=== PATIENT | female | born 1950 | race Caucasian/White ===

== ENCOUNTER 2017-10-23 12:36 | Inpatient (IN) | END 2017-10-29 14:19 | DRG 246 ==

== ENCOUNTER 2018-12-22 06:21 | Inpatient (IN) | payer MEDICAID, MEDICARE ==
[~2018-12-22] VITALS: Ht 160 cm; Wt 74.2 kg
[~2018-12-22 06:21] MED LIST: ACET-2047 PO; ASPI-903 PO; BISA10SU75 PR; CHOL100062 PO; DOCU-159 PO; FELO10TA PO; GENT5DRO28 BOTH EYES; HYDR-4011 PO; INSU100V3 IJ; LACTINEX PO; LORA10TA3 PO; LYRI25 PO; MULTI PO; PANT40TA4 PO; TETR15DR63 LEFT EYE
[2018-12-22] MEDS ORDERED: SOD CHLORIDE 0.9% 100 ML ONE (06:39)
[2018-12-22] MEDS ORDERED: IOHEXOL 300MG/ML 150 ML BTL ONE (06:39)
[2018-12-22] MEDS ORDERED: ACETAMINOPHEN 325 MG TAB PO PRN (07:00)
[2018-12-22] MEDS ORDERED: ASPIRIN 325 MG TAB PO ONE (07:00)
[2018-12-22] MEDS ORDERED: ONDANSETRON 4 MG INJ IV PRN (07:00)
[2018-12-22] MEDS ORDERED: CEFTRIAXONE 1 GM/50 ML (PMX) 50 ML IVPB STA (07:11)
[2018-12-22] MEDS ORDERED: ACETAMINOPHEN 650 MG SUPP PR ONE (07:30)
[2018-12-22] MEDS ORDERED: ASPIRIN 300 MG SUPP PR ONE (07:30)
--- NOTE | 2018-12-22 08:25 | ERD ---
ER Documentation Chief Complaint Chief Complaint LKWT 2129 YESTERDAY. NEW ONSET DEVIATED TONGUE AND SLURRED SPEECH HPI Patient is a 68-year-old female with coronary disease, stroke, hypertension, and diabetes who presents with a deviated tongue and slurred speech. Please note the history and physical exam is limited secondary to the patient's mental status. The patient was brought in by ambulance. The patient's last known well time was at 0. The patient has slurred speech and left-sided tongue deviation. The patient was on aspirin but no other blood thinners. Review of the documentation from the custodial facility shows the patient is a DNR with documentation that says "comfort focused treatment only". Upon review of old medical records the patient one previous visit in October 2017 and was admitted to Dr. Frankel. ROS All systems reviewed and are negative except as per history of present illness. Medications Home Meds Reported Medications Insulin Regular, Human (Humulin R) 100 Unit/1 Ml Vial, 0-15 UNIT IJ AC MEALS, VIAL 10/23/17 Tetrahydrozoline Hcl* (Visine*) 0.05% - 15 Ml Drops, 2 DROP LEFT EYE BID PRN for RED EYES, #1 EA 10/23/17 Pregabalin* (Lyrica*) 25 Mg Capsule, 25 MG PO BID, CAP 10/23/17 Pantoprazole* (Pantoprazole*) 40 Mg Tablet.dr, 40 MG PO AC BREAKFAST, TAB 10/23/17 Multivitamins* (Theragran*) 1 Tab Tab, 1 TAB PO DAILY, TAB 10/23/17 Loratadine* (Loratadine*) 10 Mg Tablet, 10 MG PO DAILY, #30 TAB 10/23/17 Lactobacillus Acidophilus* (Lactinex*) 1 Tab Chew, 2 TAB PO BID, TAB 10/23/17 Hydrocodone/Acetaminophen (Stitzer 5-325 Tablet) 1 Each Tablet, 1 EACH PO Q6 PRN for SEVERE PAIN LEVEL 7-10, TAB 10/23/17 Gentamicin Sulfate* (Gentamicin Sulfate* Ophth) 0.3% - 5 Ml Drops, 1 DROP BOTH EYES Q4, EA 10/23/17 Felodipine* (Felodipine*) 10 Mg Tab.sr.24h, 10 MG PO DAILY, TAB.SA 10/23/17 Docusate Sodium* (Docusate Sodium*) 100 Mg Capsule, 100 MG PO QHS, #30 CAP 10/23/17 Cholecalciferol* (Vitamin D3*) 1,000 Unit Tablet, 1000 UNIT PO DAILY, TAB 10/23/17 Bisacodyl* (Bisacodyl*) 10 Mg Supp, 10 MG MT Q24H PRN for CONSTIPATION, SUPP 10/23/17 Aspirin* (Aspirin* Chew) 81 Mg Tab.chew, 81 MG PO DAILY, TAB.CHEW 10/23/17 Acetaminophen* (Acetaminophen*) 650 Mg Tablet, 650 MG PO Q6H PRN for PAIN AND OR ELEVATED TEMP, #30 TAB 10/23/17 Allergies Allergies: Coded Allergies: tetracycline (Verified Allergy, Mild, 10/23/17) PMhx/Soc History of Surgery: No Anesthesia Reaction: No Hx Neurological Disorder: Yes (Multiple CVA's) Hx Respiratory Disorders: No Hx Cardiac Disorders: Yes (HTN, HYPERLIPIDEMIA) Hx Psychiatric Problems: No Hx Miscellaneous Medical Probl: Yes (DM, OSTEOPOROSIS, GERD, ANEMIA, PRESSURE ULCER) Hx Alcohol Use: No Hx Substance Use: No Hx Tobacco Use: No Smoking Status: Never smoker FmHx Unable to obtain Physical Exam Vitals Vital Signs Date Temp Pulse Resp B/P (MAP) Pulse Ox O2 O2 Flow FiO2 Time Delivery Rate 12/22/18 101.2 07:34 12/22/18 Nasal 2 07:04 Cannula 12/22/18 101.2 88 18 156/71 97 07:01 (99) Physical Exam Const: No acute distress Head: Atraumatic Eyes: Normal Conjunctiva ENT: Normal External Ears, Nose and Mouth. Neck: Full range of motion. No meningismus. Resp: Clear to auscultation bilaterally Cardio: Regular rate and rhythm, no murmurs Abd: Soft, non tender, non distended. Normal bowel sounds Skin: No petechiae or rashes Back: No midline or flank tenderness Ext: No cyanosis, or edema Neur: Awake, left-sided tongue deviation, slurred speech, dense left-sided weakness from previous stroke Result Diagram: 12/22/18 0645 12/22/18 0646 Results 24 hrs Laboratory Tests Test 12/22/18 06:45 12/22/18 06:46 12/22/18 07:48 12/22/18 08:19 White Blood 10.0 10^3/ul Count Red Blood Count 3.19 10^6/ul Hemoglobin 10.0 g/dl Hematocrit 29.5 % Mean Corpuscular 92.5 fl Volume Mean Corpuscular 31.3 pg Hemoglobin Mean Corpuscular 33.9 g/dl Hemoglobin Zoraida nt Red Cell 11.4 % Distribution Width Platelet Count 262 10^3/UL Mean Platelet 8.7 fl Volume Immature 0.500 % Granulocytes % Neutrophils % 92.0 % Lymphocytes % 3.5 % Monocytes % 2.7 % Eosinophils % 1.1 % Basophils % 0.2 % Nucleated Red 0.0 /100WBC Blood Cells % Immature 0.050 10^3/ul Granulocytes # Neutrophils # 9.2 10^3/ul Lymphocytes # 0.4 10^3/ul Monocytes # 0.3 10^3/ul Eosinophils # 0.1 10^3/ul Basophils # 0.0 10^3/ul Nucleated Red 0.0 10^3/ul Blood Cells # Prothrombin Time 13.0 Sec Prothrombin Time 1.0 Ratio INR 0.97 International Normalized Ratio Activated 29.7 Sec Partial Thrombop last Time Sodium Level 135 mmol/L Potassium Level 4.8 mmol/L Chloride Level 101 mmol/L Carbon Dioxide 22 mmol/L Level Anion Gap 12 Blood Urea 53 mg/dl Nitrogen Creatinine 1.99 mg/dl Est Glomerular 25 mL/min Filtrat Rate mL/min Glucose Level 336 mg/dl Hemoglobin A1c 8.9 % Calcium Level 9.5 mg/dl Creatine Kinase < 20 IU/L Creatine Kinase Index Creatinine 0.35 ng/ml Kinase MB (Mass) Troponin I < 0.012 ng/ml Triglycerides 201 mg/dl Level Cholesterol 125 mg/dl Level LDL Cholesterol, 57 mg/dl Calculated HDL Cholesterol 28 mg/dl Cholesterol/HDL 4.4 RATIO Ratio Ethyl Alcohol < 10.0 mg/dl Level Urine Color YELLOW Urine Clarity TURBID Urine pH 5.0 Urine Specific 1.030 [place] Urine Ketones NEGATIVE mg/dL Urine Nitrite NEGATIVE mg/dL Urine Bilirubin NEGATIVE mg/dL Urine NEGATIVE mg/dL Urobilinogen Urine Leukocyte 3+ Viral/ul Esterase Urine 66 /HPF Microscopic RBC Urine > 182 /HPF Microscopic WBC Urine Squamous FEW /HPF Epithelial Cells Urine Bacteria MANY /HPF Urine Hyaline FEW /HPF Casts Urine Mucus MANY /HPF Urine Yeast FEW /HPF (Budding) Urine Hemoglobin 3+ mg/dL Urine Glucose 2+ mg/dL Urine Total 2+ mg/dl Protein POC Venous 2.4 mmol/L Lactate Current Medications Medications Dose Sig/Omari Start Time Status Last (Trade) Ordered Route PRN Stop Time Admin Dose Reason Admin Sodium 100 ml @ ud STK-MED 12/22/18 DC 12/22/18 Chloride ONCE .ROUTE 06:39 06:40 12/22/18 06:40 Iohexol 150 ml STK-MED 12/22/18 DC 12/22/18 (Omnipaque ONCE .ROUTE 06:39 06:40 300mg/ ml) 12/22/18 06:40 Aspirin 325 mg ONCE ONCE 12/22/18 DC (Aspirin) PO 07:00 12/22/18 07:11 Ondansetron 4 mg ER BRIDGE 12/22/18 12/22/18 HCl (Zofran PRN IV 07:00 07:34 Inj) NAUSEA/VOMITI 12/23/18 06:59 NG 650 mg ER BRIDGE 12/22/18 Acetaminophen PRN PO 07:00 (Tylenol .MILD PAIN 12/23/18 06:59 Tab) 1-3 OR TEMP 650 mg ONCE ONCE 12/22/18 DC 12/22/18 Acetaminophen MT 07:30 07:34 (Tylenol 12/22/18 07:31 Supp) Aspirin 300 mg ONCE ONCE 12/22/18 DC 12/22/18 (Aspirin) MT 07:30 07:34 12/22/18 07:31 Ceftriaxone 50 ml @ ONCE STAT 12/22/18 DC 12/22/18 Sodium 100 mls/hr IVPB 07:11 07:34 12/22/18 07:40 Procedures/MDM EKG read by me: Rate/Rhythm: Regular rate and rhythm at a normal rate Intervals: Normal Impression: No evidence of ischemia or arrhythmia CT brain negative per radiology for bleed. CTA of the head and neck read by radiology. Chest x-ray read by radiology. Sepsis Documentation: Patient's infectious symptoms have not stabilized and the patient is at risk of rapid decompensation. The patient will be admitted for careful hydration, antibiotic therapy, and infectious source control. SEVERE SEPSIS CRITERIA: Infectious source: Cystitis End organ damage indicated by: Lactic acid greater than 2 SEPSIS MANAGEMENT Time of recognition of sepsis: 8:19 AM. Time of recognition of severe sepsis: 8:19 AM. Time of recognition of septic shock: No septic shock at this time. 3 HOUR BUNDLE Blood cultures x 2 before broad-spectrum antibiotics: Yes 30 ml/kg NS bolus completed Initial lactate 2.4 Repeat lactate pending SEPTIC SHOCK ASSESSMENT: No lactic acid > 4.0 No persistent hypotension (SBP < 90 or 40 mmHg drop, MAP < 65) despite 30 mL/kg IV fluid bolus VOLUME REASSESSMENT FOR SEPTIC SHOCK: No septic shock PERSISTENT HYPOTENSION TREATMENT: Comfort care no Central line not Required Vasopressor started not required I considered further perfusion assessment with CVP measurement, SCVO2, bedside ultrasound volume assessment, passive leg raise, trial of further fluid bolus. And proceeded with 30 ml/kg fluid bolus of NSS, broad spectrum antibiotics, and admission. The patient initially arrived at 6:19 AM. She went directly CT for the stroke symptoms. A code stroke was called at 6:20 AM. At 6:24 AM total neurology was called. At 6:38 AM I received a call from radiology with the results of the CT brain. I also spoke with Dr. Stewart from neurology at 6:38 AM. The patient is not a candidate for IV TPA as the symptoms started more than 4- 1/2 hours ago. The patient is also not a candidate for interventional procedure based on her wishes of comfort care only. CRITICAL CARE Critical care time 35 minutes Emergent fluid management while maintaining close respiratory support. Provision of immediate and broad-spectrum antibiotic therapy. Simultaneous assessment for possible sources in order to direct targeted therapy. Consideration for invasive and chemical support to prevent cardiopulmonary collapse. Critical care time is independent of procedures performed. Departure Diagnosis: Primary Impression: Severe sepsis Additional Impressions: Acute weakness Cystitis Stroke CVA mechanism: unspecified Qualified Codes: I63.9 - Cerebral infarction, unspecified Condition: Serious DALIA HICKS MD Dec 22, 2018 08:25
[2018-12-22] MEDS ORDERED: ACET1TAB40 PO (08:51)
[2018-12-22] MEDS ORDERED: METO-429 PO (08:53)
[2018-12-22] MEDS ORDERED: ISOS30TA20 PO (08:54)
[2018-12-22] MEDS ORDERED: INSU100I27 SQ ×2 (08:55→08:56)
[2018-12-22] MEDS ORDERED: IBUP-1561 PO (08:56)
[2018-12-22] MEDS ORDERED: DOCU-144 PO (08:57)
[2018-12-22] MEDS ORDERED: ASPI81TA52 PO (08:57)
[2018-12-22] MEDS ORDERED: ATOR-2 PO (08:57)
--- NOTE | 2018-12-22 08:57 | STROKE ---
Date/Time of Note Date/Time of Note DATE: 12/22/18 TIME: 10:49 Patient Information General Patient location: emergency Arrival Date Onset Date: Dec 21, 2018 Onset Time: 21:30 Onset Type unsure Age 68 Gender female Weight 70 kg Vital Signs Vital Signs Vital Signs Date Temp Pulse Resp B/P (MAP) Pulse Ox O2 O2 Flow FiO2 Time Delivery Rate 12/22/18 101.2 07:34 12/22/18 Nasal 2 07:04 Cannula 12/22/18 88 18 156/71 97 07:01 (99) Patient History Current Medications Allergies: Coded Allergies: tetracycline (Verified Allergy, Mild, 12/22/18) Labs Coagulation Labs: Coagulation Test 12/22/18 06:45 Activated Partial Thromboplast Time 29.7 Sec (23.0-35.0) Coagulation Lab Notes: 68 y/o F PMH remote stroke with residual L hemiparesis. Noted to have new left tongue deviation last night at 9 PM. Pt denies having had any difficulty with swallowing, vision, or hearing. Denies associated headache, neck pain or dizziness. Has chronic pain for which she receives pain patch. Pt states she felt dehydrated and her mouth was dry. She states her speech is now back to normal baseline History & Physical Review of Systems Constitutional: no symptoms reported EENTM: no symptoms reported Respiratory: no symptoms reported Cardiovascular: no symptoms reported Gastrointestinal: no symptoms reported Psychiatric/Neurological: other (tongue deviation, felt dry) NIH Stroke Scale NIH Stroke Scale Xzukn9Is l4d LOC Questions: Ojsoa9e C Commands: Mmdfa6k t Gaze: Naljs6r Kwthy5f alsy: Vwajo6z rm - Left: Vonwl6c Motor Arm - Right: Xkysw7e eft: Xnrnv6z otor Leg - Right: Ecsmu7x Fpcci3g st Language: Htflb3y vanj9Yn Dysarthria: Gsugc8v Lfrao2q 4Bd Total Score: Ecpyy8j te/Time Recorded DATE: 12/22/18 TIME: 10:49 Submitted By Renuka Ramirez t-PA Imaging Review Imaging Reviewed: Yes Date/Time Imaging Reviewed DATE: 12/22/18 TIME: 10:49 Imaging Findings chronic large R MCA infarct, indeterminate age R hemipontine infarct t-PA Administration Recommendation: No Weight 70 kg Recommedation submitted by Renuka Ramirez Reason t-PA not Recommended presentation outside therapeutic window; resolution of symptoms and pt now at previous baseline Recommendations Impression [id number] Site: [address] Other Recommendation Psgyu2Ql Therapy: Uvcli0m Physical Therapy Speech Therapy [id number] [facility] [place]. Recommendations: Oxqia6w Bedside Swallow Evaluation (Admit for further evaluation including TIA workup. Permissive HTN, Keep SBP <220 and DBP<110, avoid hypotension. Evaluate and treat other possible etiologies. IVFNSS. Cardiac telemetry. D/w Dr. Dyer) RENUKA RAMIREZ MD Dec 22, 2018 08:57
[2018-12-22] MEDS ORDERED: AMLO5TAB4 PO (08:58)
[2018-12-22] MEDS ORDERED: PANT40TA3 PO (09:16)
[2018-12-22] MEDS ORDERED: MULT-542 PO (09:16)
[2018-12-22] MEDS ORDERED: POLY17PO6 PO (09:16)
[2018-12-22] MEDS ORDERED: ACET-2047 PO (09:17)
[2018-12-22] MEDS ORDERED: CHOL100062 PO (09:18)
[2018-12-22] MEDS ORDERED: INSU100I12 SQ (09:21)
[2018-12-22 09:43] VITALS: BP 122/60; PULSE 79; RESP 18
[2018-12-22] MEDS ORDERED: ACETAMINOPHEN/CODEINE #3 TAB PO PRN (10:00)
[2018-12-22] MEDS ORDERED: DOCUSATE SODIUM 100 MG CAP PO PRN (10:00)
[2018-12-22 10:05] VITALS: Ht 160 cm; Wt 74.2 kg
[2018-12-22] MEDS ORDERED: HYDROCODONE/APAP (5/325) TAB PO PRN (10:30)
[2018-12-22] MEDS: SOD CHLORIDE 0.9% 1,000 ML IV SCH (10:42)
--- NOTE | 2018-12-22 11:13 | HP ---
DATE OF ADMISSION: 12/22/2018 CHIEF COMPLAINT: The patient chief complaint is possible CVA, sepsis. HISTORY OF PRESENT ILLNESS: This is a 68-year-old female with a past medical history cardiovascular accident with left-sided hemiplegia, history of hypertension, history of GERD, history of diabetes, d iabetic neuropathy, history of coronary artery disease, who presents to [facility] Emergency Room from [facility] nurse facility after the patient was noted to have deviated tongue, lethargy and d ysarthria. The patient upon arrival to the Emergency Room initially had a CT scan of the brain which showed evidence of old lacunar infarct in right large middle cerebral artery distribution involving the right frontoparietal temporal lobe. The patient had no evidence of acute intracranial hemorrhage or infarct. CT angio was also performed which showed evidence of critical 95% right internal caroti d artery stenosis, no hemodynamically significant stenosis of left extracranial or intracranial carot id arteries and chronic right middle cerebral artery infarct. The patient in the Emergency Room also noted to be febrile, temperature 100.1, was started on antibiotic therapy and patient also given asp irin at tele neurology evaluation and determined not eligible for thrombolytics. Upon my evaluation of the patient at this time, she is currently stable. Alert and oriented. The patient describing some generalized left and right arm pain. Denies any hem optysis, hematemesis or hematochezia. PAST MEDICAL HISTORY: As stated above, history of chronic right CVA with left-sided hemiparesis, his tory of diabetes, history of diabetic neuropathy, history of anemia, history of metabolic disorder, h istory of hypertension, history of CKD. PAST SURGICAL HISTORY: Has been reviewed. FAMILY HISTORY: No family history of kidney disease or heart disease. SOCIAL HISTORY: Does not drink, smoke or do drugs. ALLERGIES: Have been reviewed. ALLERGIC TO TETRACYCLINE. MEDICATIONS: The patient's medications have been reviewed and reconciled. REVIEW OF SYSTEMS: A 14-point review of systems conducted, pertinent positives stated in HPI, otherw ise negative. PHYSICAL EXAMINATION: VITAL SIGNS: Blood pressure 122/60, respiration 18, pulse 79, temperature 99.1. HEENT: Normocephalic. HEART: Regular rate. LUNGS: Show diminished breath sounds at base. ABDOMEN: Soft, nontender to palpation without rebound or guarding. EXTREMITIES: Negative for clubbing, cyanosis, no edema. DERMATOLOGIC: No rashes. MUSCULOSKELETAL: Patient has left-sided virgen-deficit. MUSCULOSKELETAL: No joint effusion. LABORATORY DATA: Shows sodium 135, potassium 4.8, BUN 53, creatinine 1.99, hemoglobin A1c 8.9, lacti c acid 2.4. White count 10.0, hemoglobin 10.0, platelet count 262. ASSESSMENT AND PLAN: This is a 68-year-old female who presents with: 1. Possible transient ischemic attack versus cerebrovascular accident. The patient presented with s lurred speech, deviated tongue, now resolved. The patient's CT brain and CT angio was reviewed, show ed no acute intracranial infarct; however, there is noted 95% critical stenosis of the right internal carotid artery. Plan is to get a neurology consult and a vascular surgery consult for evaluation. Continue medical management with aspirin and statin therapy. Continue neuro checks and monitor close ly. 2. Systemic inflammatory response syndrome, possible sepsis, etiology may be secondary to UTI. Alvina ent noted to have dirty urine, is febrile. Continue antibiotic therapy. Follow up blood cultures an d trend lactic acid levels. Follow with infectious disease for recommendations. 3. Nonoliguric acute kidney injury on top of chronic kidney disease. Etiology may be secondary to h emodynamics. Urinalysis, plan is to give the patient IV fluids, monitor renal function closely, cont inue supportive care, renally dose all meds. Avoid nephrotoxins. 4. Anemia. Monitor hemoglobin and hematocrit levels. 5. Mineral bone disorder. Monitor calcium and phosphorus levels. 6. Diabetes. Continue current diabetic regimen, will adjust as needed. 7. Hypertension. Continue current blood pressure regimen. 8. History of neuropathy. Continue medical management. 9. Dyslipidemia. Continue statin therapy. 10. Constipation. Continue current bowel regimen. 11. Gastrointestinal and deep venous thrombosis prophylaxis. Continue proton pump inhibitor and low dose Lovenox. 12. Coronary artery disease. Continue medical management. Please note I spent an additional 30 minutes with the patient, discussing code status and advance dir ectives. The patient is CHEMICAL CODE ONLY. Dictated By: MAIDA GARCIA/CALISTA Conf#: [id number] DID#: [id number]
[2018-12-22] MEDS: HYDROCODONE/APAP (5/325) TAB PO PRN (16:05)
--- NOTE | 2018-12-22 16:18 | CONS ---
DATE OF ADMISSION: 12/22/2018 DATE OF CONSULTATION: 12/22/2018 TYPE OF CONSULTATION: Infectious disease. REASON FOR CONSULTATION: Antibiotic management. HISTORY OF PRESENT ILLNESS: Lyudmila Harper is a 68-year-old female who has numerous problems and comes i n with possible stroke. Past problems include: 1. Coronary artery disease. 2. History of CVA. 3. Hypertension. 4. Diabetes. She presents with deviated tongue and slurred speech. Her mental status is also altered. The patien t was on aspirin, but no other blood thinners. She is a DNR and comfort focused treatment. Upon rev iew of old medical records, the patient had a visit in 10/2017 and was admitted to Dr. Dozier. PAST MEDICAL HISTORY: Positive for hypertension, hyperlipidemia, multiple CVAS. She is diabetic, os teoporotic. She has GERD, anemia and pressure ulcers. FAMILY HISTORY: Noncontributory. SOCIAL HISTORY: She does not smoke, drink or abuse drugs. ALLERGIES: NONE TO PENICILLIN, SULFA OR FOODS, BUT SHE IS ALLERGIC SUPPOSEDLY TO TETRACYCLINE. PHYSICAL EXAMINATION: GENERAL: She is in no acute distress. VITAL SIGNS: Stable. T-max is 101.2. SKIN: Without generalized rash. HEENT: Within normal limits. NECK: Supple. LYMPH NODES: None palpable. CHEST: Decreased breath sounds at the bases. HEART: Without murmur or gallop. ABDOMEN: Soft, nontender without organosplenomegaly or masses. EXTREMITIES: Without cyanosis, clubbing or edema. RECTAL AND GENITAL: Deferred. NEUROLOGICAL: Right-sided tongue deviation, slurred speech, dense left-sided weakness from previous stroke. HOSPITAL COURSE: White count is 10,000 with 92% neutrophils, H and H of 10 and 29.5, glucose of 262. BUN and creatinine is 53/1.99 and glucose of 336. The patient was seen in neurology consult by Dr. Hawkins. Imaging findings showed a chronic large right MCA infarct, indeterminate age, right hemiponti ne infarct. She was also seen by Dr. Dozier. Possible transient ischemic attack versus cerebrovasc ular accident, some of her slurred speech and deviated tongue. Findings are now resolved. There was no acute intracranial infarct. A 95% critical stenosis in the right internal carotid artery. Vascu lar surgeon should evaluate. Continue medical management with aspirin and statin therapy. Continue neuro checks. She has systemic inflammatory response syndrome, possible sepsis. Etiology may be sec ondary to a urinary tract infection. Her urine shows 3+ leukocyte esterase, greater than 182 white c ells per high-power field, many bacteria. Chest x-ray shows pulmonary venous hypertension, mild card iomegaly. The patient was on ceftriaxone. Blood cultures and urine cultures are pending. I am lashanda g to place her on cefepime since she is chronically ill and has at least a urinary tract infection an d temperature of 101.2. I will dictate my findings to the hospitalist and to Dr. Hawkins and Dr. Eileen hyde. Dictated By: MEGAN BARNES MD, JD/CALISTA Conf#: [id number] DID#: [id number] CC: MAIDA DOZIER DO;*End*
[2018-12-22] MEDS: INSULIN ASPART [NOVOLOG] 3 ML PEN SC SCH ×2 (18:10→20:39)
--- NOTE | 2018-12-22 19:29 | CONS ---
DATE OF ADMISSION: 12/22/2018 DATE OF CONSULTATION: 12/22/2018 REFERRING PHYSICIAN: Dr. Maida Dozier. REASON FOR CONSULTATION: Severe right carotid stenosis and a history of stroke. HISTORY OF PRESENT ILLNESS: This is a very pleasant 68-year-old diabetic, hypertensive woman with a remote history of right brain stroke, she said it was in 2010. She had a stroke. She is essentially paralyzed on the left side since then. She came in yesterday, she developed aphasia and some tongue deviation, lethargy, dysarthria; that is all resolved. She had a CTA of the neck and brain which sh owed a high-grade right proximal internal carotid stenosis and a CT of the brain that shows an old la rge right-sided stroke, chronic, no acute findings were noted. Again, she is paralyzed on the left s alfred completely from stroke she says 7 years ago. She has chronic pain in the right side and it is no t clear what the etiology is, but she has a pain patch on on the right side. She currently is awake and alert. She is a good historian. She speaks Greek and she has no complaints at present. She h as no weakness on the right side and her speech is back to normal. She is left-handed prior to the s troke. She used her left and the right. She cannot really write with the right hand, but the dysart hria and aphasia, even though it is generally speech center is on the left side with her being left-h anded, then may be that she has had a recurrent TIA or small stroke in the right brain causing dysart hria. The CT angiogram did not show any significant stenosis on the left side. PAST MEDICAL HISTORY: Significant for stroke, involving the right brain with left-sided hemiparesis. She has diabetes, hypertension, diabetic neuropathy. She has right-sided chronic pain syndrome. S he has some mild chronic kidney disease. MEDICATIONS: Consist of: 1. Norvasc. 2. Aspirin. 3. Vitamin D. 4. Insulin. 5. Isordil. 6. Theragran. 7. Protonix. 8. MiraLax. 9. Lantus. 10. Lipitor. 11. Levemir. 12. Lopressor. 13. Insulin. 14. [place]. ALLERGIES: SHE IS ALLERGIC TO TETRACYCLINE. SOCIAL HISTORY: She is a nonsmoker. She does not drink or use any illicit drugs. She lives at [facility]. FAMILY HISTORY: Noncontributory. REVIEW OF SYSTEMS: She currently is awake and alert. Speech is fluent. She speaks, probably mainly a Turkish speaker, but she speaks Greek quite well. She has left-sided hemiparesis and some contr acture in the left arm. She has no weakness or loss of sensation on the right side, although she has chronic pain in the right side of her body. PHYSICAL EXAMINATION GENERAL: She is an elderly woman. She is in no acute distress. VITAL SIGNS: She did have a temperature of 101.2 when she came in, she is now afebrile; blood pressu re is 122/60, heart rate is 79, respiratory rate is 18, she has 94% sat on room air. NECK: She has 2+ carotid, radial and brachial pulses bilaterally. LUNGS: Clear. HEART: Regular rate and rhythm. ABDOMEN: Soft, nontender, nondistended. NEUROLOGIC: She has got left-sided hemiparesis. It is very obvious the left arm is contracted. She has normal strength in the right hand and right leg. Normal sensation. EXTREMITIES: She has no wounds on her feet. No edema in the legs. LABORATORY DATA: Show a creatinine of 1.99, it is unclear what her baseline is. Her white count is 10, hemoglobin is 10, platelet count is 262. Again, I reviewed the CT angiogram of the neck and brai n and there is a severe stenosis in the proximal right internal carotid. The rest of the internal ca rotid is patent, but small. The left side of extracranial system is widely patent and again, the bra in CT shows this large right chronic MCA distribution stroke. There were no acute findings. IMPRESSION: High-grade right internal carotid stenosis with a remote history of right brain stroke, she says it was 7 years ago. She has got a left-sided hemiparesis. She had an episode, possibly of aphasia when she came and possibly could be a transient ischemic attack from the stenotic right inter nal carotid, although speech center is normally on the left side, she is left handed, and it is possi ble that she had a transient ischemic attack causing her to become aphasic. It is resolved now. It is not clear why she was afebrile and now that her temperature has come down, she was persistently el evated at 101.2 earlier today. She may be a candidate for right carotid endarterectomy to prevent re current transient ischemic attack and stroke, although she has fixed severe deficits on the entire le ft side. She will need to be evaluated further insertion of any ongoing infection and discussed it w [facility] neurology whether it is worth treating. It also appears she may be a DNR and it is not clear. W e will . I will follow up with her and discussed the case with Dr. Dozier. Dictated By: AP FLORES/NTS Conf#: [id number] DID#: [id number] CC: RAJAT RAMIREZ MD; MAIDA DOZIER DO; MEGAN BARNES MD;*End*
[2018-12-22 20:00] VITALS: BP 147/68; PULSE 59; RESP 18
[2018-12-22] MEDS: METOPROLOL 50 MG TAB PO SCH (20:31)
[2018-12-22] MEDS: CEFEPIME 1GM/50 ML (PMX) 50 ML IVPB SCH (20:32)
[2018-12-22] MEDS: ATORVASTATIN 80 MG TAB PO SCH (20:32)
[2018-12-22] MEDS ORDERED: INSULIN DETEMIR [LEVEMIR] 3ML CART SC SCH (21:00)
[2018-12-22] MEDS ORDERED: INSULIN GLARGINE [LANTus] (100 UNITS/ML) SYG SC SCH (21:00)
[2018-12-22] MEDS: ACETAMINOPHEN 325 MG TAB PO PRN (22:53)
--- NOTE | 2018-12-22 23:37 | CONS ---
DATE OF ADMISSION: 12/22/2018 DATE OF CONSULTATION: 12/22/2018 Thank you, Dr. Frankel for your kind referral for evaluation of possible stroke. HISTORY OF PRESENT ILLNESS: The patient is a 68-year-old lady with past medical history of right MCA territory ischemic stroke with residual left-sided hemiplegia going back to 2010. Also, hypertension, diabetes, coronary artery disease, GERD. The patient stated that she was moved from [facility] because of fevers, although according to history and physical examination note, it stated that the patient was noted to have deviated tongue and ysarthria. All symptoms are resolved when she got to the hospital. She has no complaints currently. She had a CAT scan of the head, which shows old right MCA territory stroke as well as a CT angiogram on admission, which shows a critical 95% right internal carotid artery stenosis. Also, she was febrile in the emergency room at 100.1 and started on antibiotics. EKG Sinus rhythm. Her labs on admission shows a BUN of 53, creatinine 1.99, while two months ago during hospitalization, she had a BUN of 19, creatinine of 1.8. Also, her glucose was 336 and hemoglobin A1c was 8.9. Rest of the comprehensive metabolic panel within normal limits. Cholesterol 145, LDL 57. Hemoglobin 10, hematocrit 49, neutrophils 92%, while hemoglobin two months ago was 8.9 and hematocrit 26. Normal PT, PTT. Urinalysis, WBC count more than 182. Leukocyte esterase 3+. Tox screen positive for opiates, otherwise negative. PAST MEDICAL HISTORY: Cardiomegaly, pulmonary venous hypertension. CURRENT MEDICATIONS: 1. Aspirin 81. 2. Amlodipine. 3. Vitamin D. 4. Isosorbide. 5. Pantoprazole. 6. MiraLax. 7. Insulin. 8. Lipitor 80. 9. Lopressor. 10. She was started on cefepime. ALLERGIES: TETRACYCLINE. SOCIAL HISTORY: No alcohol, tobacco, drug use. FAMILY HISTORY: Noncontributory. PHYSICAL EXAMINATION GENERAL: Not in acute distress, lying in bed. HEENT: Normocephalic, atraumatic head. NECK: No carotid bruits. No thyromegaly. LUNGS: Clear to auscultation bilaterally. CARDIAC: Normal cardiac rhythm and sounds. ABDOMEN: Soft. EXTREMITIES: No cyanosis, clubbing or edema. NEUROLOGIC: She is awake, alert, and oriented x3 with fluent speech. Cranial nerve examination shows left-sided hemianopia to visual threat. Pupils reactive from 3 to 2 mm bilaterally. Extraocular movements intact without nystagmus. Asymmetrical face with mild facial droop on the left nasolabial fold flattening on the left. Corneal reflexes present bilaterally. Gag is present. Motor strength examination shows essentially left-sided hemiplegia with increased tone in the left upper extremity and decreased in lower extremity. No movements. Sensory examination: She claimed to feel the same in the left and right extremities, but seems to have diminished perception on the left because of mistakes questioning. Deep tendon reflexes 3+ on the left, 2+ on the right, 4+ left ankle jerk. Upgoing toes on the left. Coordination is preserved on the right [id number] testing. No dysmetria or tremor. IMPRESSION: Transient encephalopathy, possibly transient neurological complaints of tongue deviation, possible speech difficulties or dysarthria,according to PMD note. the patient denied any new neuro problems, except fever prior to admission, she came with severe urinary tract infection, dehydration, hyperglycemia. At times ongoing medical problems may be responsible for transient worsening of neurological symptoms. Continue current treatment for urinary tract infection. Continue hydration. Continue current treatment for stroke prevention with aspirin and statin. She does have history of stroke with hemiplegia and critical carotid stenosis that is found on CT angiogram. I do not think that a possible endarterectomy of the right internal carotid artery will improve anything in terms of her ongoing neurological status, so benefits of the procedure should be weighted against the risks. Continue current treatment. Thank you very much for this interesting consultation. Dictated By: MERCEDES LONGO/CALISTA Conf#: [id number] DID#: [id number] CC: MAIDA FRANKEL DO;*EndCC* MTDD
[2018-12-23 02:00] VITALS: BP 140/68; PULSE 65; RESP 19
[2018-12-23] MEDS: SOD CHLORIDE 0.9% 1,000 ML IV SCH (06:14)
[2018-12-23 07:51] VITALS: BP 177/74; PULSE 80; RESP 18
[2018-12-23] MEDS: HYDROCODONE/APAP (5/325) TAB PO PRN ×2 (07:51→14:26)
[2018-12-23] MEDS: ASPIRIN (EC) 81 MG TAB PO SCH (08:46)
[2018-12-23] MEDS: METOPROLOL 50 MG TAB PO SCH ×2 (08:46→20:20)
[2018-12-23] MEDS: PANTOPRAZOLE (EC) 40 MG TAB PO SCH (08:46)
[2018-12-23] MEDS: ISOSORBIDE DINITRATE 10 MG TAB PO SCH (08:46)
[2018-12-23] MEDS: AMLODIPINE 5 MG TAB PO SCH (08:46)
[2018-12-23] MEDS: CHOLECALCIFEROL 1,000 UNIT TAB PO SCH (08:46)
[2018-12-23] MEDS: MULTIVITAMINS THERAPEUTIC TAB PO SCH (08:46)
[2018-12-23] MEDS: POLYETHYLENE GLYCOL 17 GM PACKET PO SCH (08:47)
[2018-12-23] MEDS: INSULIN ASPART [NOVOLOG] 3 ML PEN SC SCH ×4 (08:49→20:31)
[2018-12-23] MEDS ORDERED: INSULIN GLARGINE [LANTus] (100 UNITS/ML) SYG SC SCH (09:00)
[2018-12-23] MEDS ORDERED: INSULIN DETEMIR [LEVEMIR] 3ML CART SC SCH (09:00)
--- NOTE | 2018-12-23 10:31 | PN ---
DATE: 12/23/2018 SUBJECTIVE: Patient stable, no acute events overnight. No nausea, vomiting, no shortness of breath. OBJECTIVE: VITAL SIGNS: Blood pressure is 177/74, respiration 18, pulse 80, temperature 98.7. HEENT: Head is normocephalic. NECK: Supple. HEART: Regular rate. LUNGS: Show diminished breath sounds at the base. ABDOMEN: Soft, nontender to palpation without rebound or guarding. EXTREMITIES: Negative for clubbing, cyanosis, no edema. DERMATOLOGIC: No rashes. MUSCULOSKELETAL: No joint effusion. NEUROLOGIC: No change in exam. MEDICATIONS: Have been reviewed. LABORATORY DATA: Has been reviewed. Patient has a BUN 58, creatinine 2.78, glucose 273. Phosphorus 6.0. White count 9.9, hemoglobin 10.6. Chemistries have been reviewed. Microbiology has been reviewed. ASSESSMENT AND PLAN: 1. Transient ischemic attack, resolved. The patient imaging studies have been reviewed. No evidenc e of acute cerebrovascular accident. The patient's mental status is back to baseline. The possibili ty of a severe critical stenosis of right internal carotid artery may have been a contributing factor . The patient was seen by vascular surgery. Possible endarterectomy may be needed. The patient was also evaluated by neurology, greatly appreciate their help with management. We will continue curren t medical management. Continue aspirin. Continue statin therapy. 2. Systemic inflammatory response syndrome, possible sepsis, source may be secondary to urinary trac t infection. Continue current antibiotic regimen. Follow up cultures. Appreciate infectious diseas e evaluation. 3. Nonoliguric acute kidney injury on top of chronic kidney disease, etiology may be secondary to he modynamics, possible tubular injury. The patient appears to be in injury phase of acute kidney injur y as renal function continues to decline. Plan is to continue gentle IV hydration. Continue support artem care, renally dose all meds. 4. Anemia. Monitor hemoglobin and hematocrit levels. 5. Mineral bone disorder, monitor calcium and phosphorus levels. 6. Diabetes. The patient's glucose levels remain elevated. Continue to adjust glucose regimen. 7. Hypertension. Continue current blood pressure regimen. 8. History of neuropathy. 9. Dyslipidemia. Continue statin therapy. 10. Constipation. Continue current bowel regimen. 11. Coronary artery disease. Continue medical management. 12. Gastrointestinal and deep vein thrombosis prophylaxis. Dictated By: MAIDA GARCIA/CALISTA Conf#: [id number] DID#: [id number]
[2018-12-23] MEDS: DICLOFENAC SODIUM 1% GEL 100 GM TUBE TP SCH ×2 (11:50→20:42)
[2018-12-23 14:05] VITALS: BP 162/59; PULSE 71; RESP 18
--- NOTE | 2018-12-23 14:20 | CONS ---
Assessment/Plan Assessment/Plan Hospital Course (Demo Recall) Patient is alert sitting in bed just finished lunch looks comfortable no fevers temperature today 98.2 WBC today 9.9 platelets 245 neutrophils 79.5 BUN 58 creatinine 2.78 Indwelling: Mccall Microbiology: Urine culture growing gram-negative rods Antimicrobials: Cefepime Physical examination: Obese well-developed elderly woman who is alert in no distress. Head atraumatic normocephalic neck is supple chest rise symmetrical breath sounds clear. Heart: S1-S2. Abdomen soft bowel sounds present. Assessment: 1. Sepsis, present on admission 2. Gram-negative joe UTI 3. Morbid obesity 4. Diabetes 5. 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 Plan: Patient remains stable continue present care and antibiotics, follow final cultures Consultation Date/Type/Reason Admit Date/Time Dec 22, 2018 at 06:52 Initial Consult Date Type of Consult id Date/Time of Note DATE: 12/23/18 TIME: 14:20 Exam/Review of Systems Exam Vitals Vital Signs Date Temp Pulse Resp B/P (MAP) Pulse Ox O2 O2 Flow FiO2 Time Delivery Rate 12/23/18 98.2 71 18 162/59 98 Room Air 14:05 (93) 12/22/18 2 07:04 Intake and Output 12/22/18 12/22/18 12/23/18 1515:00 23:00 07:00 IntakeIntake Total 100 ml 450 ml BalanceBalance 100 ml 450 ml Results Result Diagram: 12/23/18 0730 12/23/18 0730 Results 24hrs Laboratory Tests Test 12/22/18 17:35 12/22/18 20:34 12/23/18 07:30 12/23/18 07:57 Bedside Glucose 283 H 201 326 H White Blood Count 9.9 Red Blood Count 3.38 L Hemoglobin 10.6 L Hematocrit 32.0 L Mean Corpuscular 94.7 Volume Mean Corpuscular 31.4 Hemoglobin Mean Corpuscular 33.1 Hemoglobin Concent Red Cell 12.1 Distribution Width Platelet Count 245 Mean Platelet Volume 9.3 Immature 0.300 Granulocytes % Neutrophils % 79.5 H Lymphocytes % 10.3 L Monocytes % 7.5 Eosinophils % 2.0 Basophils % 0.4 Nucleated Red Blood 0.0 Cells % Immature 0.030 Granulocytes # Neutrophils # 7.8 H Lymphocytes # 1.0 Monocytes # 0.7 Eosinophils # 0.2 Basophils # 0.0 Nucleated Red Blood 0.0 Cells # Sodium Level 139 Potassium Level 5.1 Chloride Level 107 Carbon Dioxide Level 21 Anion Gap 11 Blood Urea Nitrogen 58 H Creatinine 2.78 H Est Glomerular 17 L Filtrat Rate mL/min Glucose Level 273 H Calcium Level 9.5 Phosphorus Level 6.0 H Magnesium Level 2.1 Test 12/23/18 12:47 Bedside Glucose 197 Medications Medication Current Medications Acetaminophen (Tylenol Tab) 650 mg Q6H PRN PO MILD PAIN LEVEL 1-3 Last administered on 12/22/18 22:53; Admin Dose 650 MG; Start 12/22/18 at 10:00 Amlodipine Besylate (Norvasc) 5 mg DAILY PO Last administered on 12/23/18 08:46; Admin Dose 5 MG; Start 12/23/18 at 09:00 Aspirin (Halfprin) 81 mg DAILY PO Last administered on 12/23/18 08:46; Admin Dose 81 MG; Start 12/23/18 at 09:00 Atorvastatin Calcium (Lipitor) 80 mg QHS PO Last administered on 12/22/18 20:32; Admin Dose 80 MG; Start 12/22/18 at 21:00 Cholecalciferol (Vitamin D) 1,000 unit DAILY PO Last administered on 12/23/18 08:46; Admin Dose 1,000 UNIT; Start 12/23/18 at 09:00 Docusate Sodium (Colace) 100 mg DAILY PRN PO CONSTIPATION; Start 12/22/18 at 10:00 Isosorbide Dinitrate (Isordil) 30 mg DAILY PO Last administered on 12/23/18 08:46; Admin Dose 30 MG; Start 12/23/18 at 09:00 Metoprolol Tartrate (Lopressor) 50 mg BID PO Last administered on 12/23/18 08:46; Admin Dose 50 MG; Start 12/22/18 at 21:00 Multivitamins Therapeutic (Theragran) 1 tab DAILY PO Last administered on 12/23/18 08:46; Admin Dose 1 TAB; Start 12/23/18 at 09:00 Pantoprazole (Protonix Tab) 40 mg DAILY PO Last administered on 12/23/18 08:46; Admin Dose 40 MG; Start 12/23/18 at 09:00 Polyethylene Glycol (Miralax) 17 gm DAILY PO Last administered on 12/23/18 08:47; Admin Dose 17 GM; Start 12/23/18 at 09:00 Acetaminophen/ Hydrocodone Bitart ([place] (5/325)) 1 tab Q6H PRN PO PAIN LEVEL 7-10 Last administered on 12/23/18 07:51; Admin Dose 1 TAB; Start 12/22/18 at 10:30 Cefepime HCl 50 ml @ 100 mls/hr Q24H IVPB Last administered on 12/22/18 20:32; Admin Dose 100 MLS/HR; Start 12/22/18 at 20:00 Insulin Aspart (Novolog Insulin Pen) NOVOLOG *MILD* ALGORITHM WITH MEALS BEDTIME SC Last administered on 12/23/18 12:48; Admin Dose 2 UNIT; Start 12/22/18 at 18:00 Insulin Glargine (Lantus) 20 units QHS SC ; Start 12/23/18 at 21:00 Insulin Glargine (Lantus) 20 units QAM SC ; Start 12/24/18 at 09:00 Lidocaine (Lidoderm) 1 patch DAILY TD ; Start 12/24/18 at 09:00 Heparin Sodium (Porcine) (Heparin (5000 Units/1ml)) 5,000 unit BID SC ; Start 12/23/18 at 21:00 Diclofenac Sodium (Voltaren 1% Gel) 2 gm BID TP Last administered on 12/23/18at 11:50; Admin Dose 2 GM; Start 12/23/18 at 11:30 JASON GLOVER NP Dec 23, 2018 14:20
[2018-12-23] MEDS ORDERED: LIDOCAINE 5% PATCH ONE (16:39)
[2018-12-23] MEDS: LIDOCAINE 5% PATCH TD SCH (16:42)
[2018-12-23 19:38] VITALS: BP 155/66; PULSE 65; RESP 20
[2018-12-23] MEDS: CEFEPIME 1GM/50 ML (PMX) 50 ML IVPB SCH (20:11)
[2018-12-23] MEDS: ATORVASTATIN 80 MG TAB PO SCH ×2 (20:20→20:22)
[2018-12-23] MEDS: INSULIN GLARGINE [LANTus] (100 UNITS/ML) SYG SC SCH (20:30)
[2018-12-23] MEDS: HEPARIN 5,000 UNIT/1 ML VIAL SC SCH (20:32)
[2018-12-23] MEDS: ACETAMINOPHEN 325 MG TAB PO PRN (20:49)
[2018-12-23] MEDS ORDERED: DICLOFENAC SODIUM 1% GEL 100 GM TUBE TP SCH (21:00)
[2018-12-24] VITALS (40 sets, daily range): BP systolic 98–191; BP diastolic 54–103; PULSE 61–74; RESP 4–41
[2018-12-24] MEDS ORDERED: ONDANSETRON 4 MG INJ IV PRN (01:30)
[2018-12-24] MEDS: NITROGLYCERIN 2% 1 GM OINT PKT TD PRN ×2 (02:02→18:22)
[2018-12-24] MEDS: ONDANSETRON 4 MG INJ IV PRN ×3 (02:06→19:40)
[2018-12-24] MEDS: PANTOPRAZOLE (EC) 40 MG TAB PO SCH (08:27)
[2018-12-24] MEDS: CHOLECALCIFEROL 1,000 UNIT TAB PO SCH (08:27)
[2018-12-24] MEDS: MULTIVITAMINS THERAPEUTIC TAB PO SCH (08:28)
[2018-12-24] MEDS: ISOSORBIDE DINITRATE 10 MG TAB PO SCH (08:28)
[2018-12-24] MEDS: AMLODIPINE 5 MG TAB PO SCH (08:28)
[2018-12-24] MEDS: ASPIRIN (EC) 81 MG TAB PO SCH (08:28)
[2018-12-24] MEDS: METOPROLOL 50 MG TAB PO SCH ×2 (08:29→20:51)
[2018-12-24] MEDS: DICLOFENAC SODIUM 1% GEL 100 GM TUBE TP SCH (08:29)
[2018-12-24] MEDS: POLYETHYLENE GLYCOL 17 GM PACKET PO SCH (08:30)
[2018-12-24] MEDS: HEPARIN 5,000 UNIT/1 ML VIAL SC SCH ×2 (08:32→20:57)
[2018-12-24] MEDS: INSULIN ASPART [NOVOLOG] 3 ML PEN SC SCH ×3 (08:34→20:58)
[2018-12-24] MEDS ORDERED: INSULIN GLARGINE [LANTus] (100 UNITS/ML) SYG SC SCH (09:00)
[2018-12-24] MEDS ORDERED: NA POLYST SULFON 15 GM/60 ML BTL PO ONE ×2 (09:30→18:30)
--- NOTE | 2018-12-24 10:26 | PN ---
DATE: 12/24/2018 SUBJECTIVE: The patient overnight was noted to be hypertensive. The patient's blood pressure medica tions were adjusted. No other acute events noted. The patient continues to complain about left-side d breast pain. No rashes or edema noted. OBJECTIVE: VITAL SIGNS: Blood pressure is 178/89, respirations 18, pulse 64, temperature 98.6. HEENT: Head is normocephalic. NECK: Supple. HEART: Regular rate. LUNGS: Show diminished breath sounds at the base. ABDOMEN: Soft, nontender to palpation. No rebound or guarding. EXTREMITIES: Negative for clubbing, cyanosis, no edema. DERMATOLOGIC: No rashes. MUSCULOSKELETAL: No joint effusion. NEUROLOGIC: No change in exam. MEDICATIONS: The patient's medications have been reviewed. LABORATORY DATA: Shows sodium 133, potassium 5.5, BUN 63, creatinine 4.61. White count 8.9, hemoglo bin 9.0, and platelet count is 228. The patient's urine cultures were positive. The patient's renal ultrasound shows mild right hydronephrosis with increased renal cortical echogenicity suggesting chr onic renal disease. ASSESSMENT AND PLAN: 1. Transient ischemic attack, resolved. The patient is clinically at baseline. The patient was sabina luated by vascular surgery, was noted to have right internal carotid artery stenosis. However, the p atient does not wish to have surgery. Unclear if surgery would provide any further benefit. We will continue to monitor closely. 2. Systemic inflammatory response syndrome, possible sepsis. The patient is currently on antibiotic therapy. We will continue. Urine cultures were positive. Follow up with infectious disease. 3. Nonoliguric acute kidney injury on top of chronic kidney disease stage III with previous baseline creatinine of 1.0 mg/dL. Etiology of acute kidney injury is concerning for acute tubular necrosis d ue to contrast-associated nephropathy, hemodynamics. The patient remains in injury phase of acute tu bular necrosis as renal function continues to decline. There may be an underlying component of obstr uctive uropathy. Plan is to place a Mccall catheter. We will resume the patient on gentle IV hydrati on. We also discussed with the patient the possibility of hemodialysis if renal function does not im prove, we will monitor closely. 4. Hyperkalemia, etiology is secondary to acute kidney injury. The patient will be given Kayexalate and monitor potassium levels closely. 5. Hypernatremia secondary acute kidney injury. Continue to monitor closely. 6. Metabolic acidosis secondary to acute kidney injury. Continue to monitor bicarbonate levels. 7. Mineral bone disorder, monitor calcium and phosphorus levels. 8. Diabetes. Glucose levels are improving. Continue to monitor, adjust insulin regimen in the sett ing of acute kidney injury. 9. Hypertension. Continue current blood pressure regimen. 10. History of neuropathy. 11. Dyslipidemia. Continue statin therapy. 12. Constipation. Continue current bowel regimen. 13. Coronary artery disease. Continue medical management. 14. Gastrointestinal and deep vein thrombosis prophylaxis. Dictated By: MAIDA DOZIER DO NR/NTS Conf#: [id number] DID#: [id number] CC: JACQUELINE MAURER MD; MAIDA DOZIER DO;*EndCC*
--- NOTE | 2018-12-24 14:51 | CONS ---
Assessment/Plan Assessment/Plan Hospital Course (Demo Recall) No acute changes overnight. Patient is lying comfortably in bed no fevers overnight. Urine culture grew E. coli ESBL. Allergies: Tetracycline Antimicrobials: Cefepime Indwelling: Mccall Physical examination: Obese well-developed elderly woman who is in no distress. Head atraumatic normocephalic neck is supple chest rise symmetrical breath sounds clear. Heart: S1-S2. Abdomen soft bowel sounds present. Assessment: 1. Sepsis, present on admission 2. E. coli ESBL UTI 3. Morbid obesity 4. Diabetes 5. 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 Acute renal failure Plan: Stable with worsening renal function, nephrology on case, change antibiotics to Invanz Consultation Date/Type/Reason Admit Date/Time Dec 22, 2018 at 06:52 Initial Consult Date Type of Consult id Date/Time of Note DATE: 12/24/18 TIME: 14:50 Exam/Review of Systems Exam Vitals Vital Signs Date Temp Pulse Resp B/P (MAP) Pulse Ox O2 O2 Flow FiO2 Time Delivery Rate 12/24/18 61 9 160/67 99 13:15 (98) 12/24/18 Room Air 13:00 12/24/18 97.9 12:00 12/22/18 2 07:04 Intake and Output 12/23/18 12/23/18 12/24/18 1515:00 23:00 07:00 IntakeIntake Total 320 ml 410 ml 600 ml BalanceBalance 320 ml 410 ml 600 ml Results Result Diagram: 12/24/18 0703 12/24/18 0703 Results 24hrs Laboratory Tests Test 12/23/18 17:19 12/23/18 20:18 12/24/18 02:09 12/24/18 07:03 Bedside Glucose 336 H 248 H 208 White Blood Count 8.9 Red Blood Count 2.83 L Hemoglobin 9.0 L Hematocrit 26.1 L Mean Corpuscular 92.2 Volume Mean Corpuscular 31.8 Hemoglobin Mean Corpuscular 34.5 Hemoglobin Concent Red Cell 11.5 Distribution Width Platelet Count 228 Mean Platelet Volume 9.3 Immature 0.200 Granulocytes % Neutrophils % 71.9 Lymphocytes % 17.7 Monocytes % 7.4 Eosinophils % 2.3 Basophils % 0.5 Nucleated Red Blood 0.0 Cells % Immature 0.020 Granulocytes # Neutrophils # 6.4 Lymphocytes # 1.6 Monocytes # 0.7 Eosinophils # 0.2 Basophils # 0.0 Nucleated Red Blood 0.0 Cells # Sodium Level 133 L Potassium Level 5.5 H Chloride Level 102 Carbon Dioxide Level 19 L Anion Gap 12 Blood Urea Nitrogen 63 H Creatinine 4.61 #H Est Glomerular 9 L Filtrat Rate mL/min Glucose Level 181 Calcium Level 9.2 Phosphorus Level 6.6 H Magnesium Level 2.0 Test 12/24/18 08:14 12/24/18 09:45 12/24/18 10:25 12/24/18 14:13 Bedside Glucose 190 160 Creatine Kinase < 20 L Urine Color YELLOW Urine Clarity TURBID A Urine pH 6.0 Urine Specific 1.013 [place] Urine Ketones NEGATIVE Urine Nitrite NEGATIVE Urine Bilirubin NEGATIVE Urine Urobilinogen NEGATIVE Urine Leukocyte 3+ H Esterase Urine Microscopic 29 H RBC Urine Microscopic > 182 H WBC Urine Squamous FEW Epithelial Cells Urine Bacteria MODERATE Urine Mucus MANY A Urine Yeast FEW A (Budding) Urine Hemoglobin 2+ H Urine Random 25.29 Creatinine Urine Random Sodium 54 Urine Glucose 1+ H Urine Total Protein 287.0 H Medications Medication Current Medications Acetaminophen (Tylenol Tab) 650 mg Q6H PRN PO MILD PAIN LEVEL 1-3 Last administered on 12/23/18 20:49; Admin Dose 650 MG; Start 12/22/18 at 10:00 Amlodipine Besylate (Norvasc) 5 mg DAILY PO Last administered on 12/24/18 08:28; Admin Dose 5 MG; Start 12/23/18 at 09:00 Aspirin (Halfprin) 81 mg DAILY PO Last administered on 12/24/18 08:28; Admin Dose 81 MG; Start 12/23/18 at 09:00 Atorvastatin Calcium (Lipitor) 80 mg QHS PO Last administered on 12/23/18 20:20; Admin Dose 80 MG; Start 12/22/18 at 21:00 Cholecalciferol (Vitamin D) 1,000 unit DAILY PO Last administered on 12/24/18 08:27; Admin Dose 1,000 UNIT; Start 12/23/18 at 09:00 Docusate Sodium (Colace) 100 mg DAILY PRN PO CONSTIPATION; Start 12/22/18 at 10:00 Isosorbide Dinitrate (Isordil) 30 mg DAILY PO Last administered on 12/24/18 08:28; Admin Dose 30 MG; Start 12/23/18 at 09:00 Metoprolol Tartrate (Lopressor) 50 mg BID PO Last administered on 12/24/18 08:29; Admin Dose 50 MG; Start 12/22/18 at 21:00 Multivitamins Therapeutic (Theragran) 1 tab DAILY PO Last administered on 12/24/18 08:28; Admin Dose 1 TAB; Start 12/23/18 at 09:00 Pantoprazole (Protonix Tab) 40 mg DAILY PO Last administered on 12/24/18 08:27; Admin Dose 40 MG; Start 12/23/18 at 09:00 Polyethylene Glycol (Miralax) 17 gm DAILY PO Last administered on 12/24/18 08:30; Admin Dose 17 GM; Start 12/23/18 at 09:00 Acetaminophen/ Hydrocodone Bitart ([place] (5/325)) 1 tab Q6H PRN PO PAIN LEVEL 7-10 Last administered on 12/23/18 14:26; Admin Dose 1 TAB; Start 12/22/18 at 10:30 Cefepime HCl 50 ml @ 100 mls/hr Q24H IVPB Last administered on 12/23/18 20:11; Admin Dose 100 MLS/HR; Start 12/22/18 at 20:00 Insulin Aspart (Novolog Insulin Pen) NOVOLOG *MILD* ALGORITHM WITH MEALS BEDTIME SC Last administered on 12/24/18 08:34; Admin Dose 2 UNIT; Start 12/22/18 at 18:00 Insulin Glargine (Lantus) 20 units QHS SC Last administered on 12/23/18 20:30; Admin Dose 20 UNITS; Start 12/23/18 at 21:00 Insulin Glargine (Lantus) 20 units QAM SC Last administered on 12/24/18 08:33; Admin Dose 20 UNITS; Start 12/24/18 at 09:00 Lidocaine (Lidoderm) 1 patch DAILY TD Last administered on 12/23/18 16:42; Admin Dose 1 PATCH; Start 12/24/18 at 09:00 Heparin Sodium (Porcine) (Heparin (5000 Units/1ml)) 5,000 unit BID SC Last administered on 12/24/18 08:32; Admin Dose 5,000 UNIT; Start 12/23/18 at 21:00 Nitroglycerin (Nitroglycerin 2% Oint) 1 inch Q6 PRN TD SBP>170 Last administered on 12/24/18 02:02; Admin Dose 1 INCH; Start 12/24/18 at 01:30 Hydralazine HCl (Apresoline) 25 mg Q6 PRN PO SBP >160 Last administered on 12/24/18 03:20; Admin Dose 25 MG; Start 12/24/18 at 01:30 Ondansetron HCl (Zofran Inj) 1 mg Q6H PRN IV NAUSEA AND/OR VOMITING Last administered on 12/24/18at 13:04; Admin Dose 1 MG; Start 12/24/18 at 02:30 JASON GLOVER NP Dec 24, 2018 14:51
[2018-12-24] MEDS ORDERED: ERTAPENEM SODIUM 0.5 GM in SOD CHLORIDE 0.9% 100 ML IVPB SCH (17:00)
[2018-12-24] MEDS: ERTAPENEM SODIUM 0.5 GM in SOD CHLORIDE 0.9% 100 ML IVPB SCH (17:59)
[2018-12-24] MEDS ORDERED: NA POLYST SULFON 15 GM/60 ML BTL ONE (18:26)
--- NOTE | 2018-12-24 19:28 | QN ---
Documentation Comment MRI showed no acute infarct. Recent neurologic symptoms are likely due to urosepsis.I agree that carotid endarterectomy would be of little benefit at this point despite severe carotid stenosis given dense hemiplegia for many years. - I am available if there are any further issues on this admission - she can followup with me in the office in a month on discharge AP JON MD Dec 24, 2018 19:28
--- NOTE | 2018-12-24 20:48 | CONS ---
Assessment/Plan Assessment/Plan Hospital Course (Demo Recall) 68-year-old female, with a past medical history cerebrovascular accident with left-sided hemiplegia, history of hypertension, history of GERD, history of diabetes, diabetic neuropathy, history of coronary artery disease, presented [facility] she was noted to have deviated tongue, lethargy and dysarthria. Her creatinine was 1.99 and it did go up to 4.92. She had a renal ultrasound and that showed mild right hydronephrosis. A urological consultation was therefore requested. Patient denies any prior history of kidney stones. She did have cholecystectomy and appendectomy and tubal ligation. She has been a resident of the [facility] for at least 2 years and that is because of her stroke. She states that she does urinate on her own and did not need an indwelling catheter before. On the examination there is no flank tenderness. She does have urinary tract infection with E. coli ESBL. I will order a CT scan of the abdomen and pelvis without contrast to check for ureteral stones that may be causing obstruction and hydronephrosis. Consultation Date/Type/Reason Admit Date/Time Dec 22, 2018 at 06:52 Date of Consultation: Dec 24, 2018 Type of Consult Urology Reason for Consultation Right hydronephrosis Requesting Provider: MAIDA DOZIER DO Date/Time of Note DATE: 12/24/18 TIME: 20:38 Hx of Present Illness 68-year-old female, with a past medical history cerebrovascular accident with left-sided hemiplegia, history of hypertension, history of GERD, history of diabetes, diabetic neuropathy, history of coronary artery disease, presented to [facility] after she was noted to have deviated tongue, lethargy and dysarthria. Her creatinine was 1.99 and it did go up to 4.92. She had a renal ultrasound and that showed mild right hydronephrosis. A urological consultation was therefore requested. Patient denies any prior history of kidney stones. She did have cholecystectomy and appendectomy and tubal ligation. She has been a resident of the [facility] for at least 2 years and that is because of her stroke. She states that she does urinate on her own and did not need an indwelling catheter before. Constitutional: no complaints Eyes: no complaints ENT: no complaints Respiratory: No shortness of breath, No wheezing Cardiovascular: No chest pain Gastrointestinal: nausea Genitourinary: dysuria, other (Has an indwelling Mccall catheter) Musculoskeletal: other (Left hemiplegia) Skin: no complaints Neurologic: other (Left hemiplegia) Endocrine: no complaints Psychological: no complaints Past Medical History Medical History: diabetes, high cholesterol, hypertension Home Meds Reported Medications Insulin Lispro (Humalog Kwikpen U-100) 100 Unit/1 Ml Insuln.pen, 0 SQ AC MEALS AND BEDTIME, EA 12/22/18 Cholecalciferol* (Vitamin D3*) 1,000 Unit Tablet, 1000 UNIT PO DAILY, TAB 12/22/18 Acetaminophen* (Acetaminophen*) 650 Mg Tablet, 650 MG PO Q6H PRN for MILD PAIN LEVEL 1-3, #30 TAB AND FEVER 12/22/18 Pantoprazole* (Protonix*) 40 Mg Tablet.dr, 40 MG PO DAILY, TAB 12/22/18 Multivitamin* (Daily Value*) 1 Each Tablet, 1 TAB PO DAILY, TAB 12/22/18 Polyethylene Glycol* (Miralax*) 17 Gm Powd.pack, 17 GM PO DAILY, #30 PACKET 12/22/18 Amlodipine Besylate* (Norvasc*) 5 Mg Tablet, 5 MG PO DAILY, TAB HOLD FOR SBP<110 OR HR <60 12/22/18 Aspirin (Low Dose Aspirin) 81 Mg Tablet.dr, 81 MG PO DAILY, #30 TAB 12/22/18 Atorvastatin* (Atorvastatin*) 80 Mg Tablet, 80 MG PO QHS, #30 TAB 12/22/18 Docusate Sodium* (Colace*) 100 Mg Capsule, 100 MG PO DAILY PRN for CONSTIPATION, #30 CAP 12/22/18 Ibuprofen* (Motrin*) 400 Mg Tab, 400 MG PO Q6H PRN for PAIN LEVEL 4-6, TAB 12/22/18 Insulin Detemir (Levemir Flextouch) 100 Unit/1 Ml Insuln.pen, 32 UNIT SQ QHS, EA 12/22/18 Insulin Detemir (Levemir Flextouch) 100 Unit/1 Ml Insuln.pen, 35 UNIT SQ QAM, EA 12/22/18 Isosorbide Dinitrate* (Isosorbide Dinitrate*) 30 Mg Tablet, 30 MG PO DAILY, TAB HOLD FOR SBP <110 OR HR<60 12/22/18 Metoprolol Tartrate* (Lopressor*) 50 Mg Tab, 50 MG PO BID, #60 TAB HOLD IF SBP <110 OR HR <60 GIVE WITH FOOD 12/22/18 Acetaminophen with Codeine (Acetaminophen-Cod #3 Tablet) 1 Each Tablet, 1 TAB PO Q6H PRN for SEVERE PAIN LEVEL 7-10, #7 TAB 12/22/18 Discontinued Reported Medications Insulin Regular, Human (Humulin R) 100 Unit/1 Ml Vial, 0-15 UNIT IJ AC MEALS, VIAL 10/23/17 Tetrahydrozoline Hcl* (Visine*) 0.05% - 15 Ml Drops, 2 DROP LEFT EYE BID PRN for RED EYES, #1 EA 10/23/17 Pregabalin* (Lyrica*) 25 Mg Capsule, 25 MG PO BID, CAP 10/23/17 Pantoprazole* (Pantoprazole*) 40 Mg Tablet.dr, 40 MG PO AC BREAKFAST, TAB 10/23/17 Multivitamins* (Theragran*) 1 Tab Tab, 1 TAB PO DAILY, TAB 10/23/17 Loratadine* (Loratadine*) 10 Mg Tablet, 10 MG PO DAILY, #30 TAB 10/23/17 Lactobacillus Acidophilus* (Lactinex*) 1 Tab Chew, 2 TAB PO BID, TAB 10/23/17 Hydrocodone/Acetaminophen ([place] 5-325 Tablet) 1 Each Tablet, 1 EACH PO Q6 PRN for SEVERE PAIN LEVEL 7-10, TAB 10/23/17 Gentamicin Sulfate* (Gentamicin Sulfate* Ophth) 0.3% - 5 Ml Drops, 1 DROP BOTH EYES Q4, EA 10/23/17 Felodipine* (Felodipine*) 10 Mg Tab.sr.24h, 10 MG PO DAILY, TAB.SA 10/23/17 Docusate Sodium* (Docusate Sodium*) 100 Mg Capsule, 100 MG PO QHS, #30 CAP 10/23/17 Cholecalciferol* (Vitamin D3*) 1,000 Unit Tablet, 1000 UNIT PO DAILY, TAB 10/23/17 Bisacodyl* (Bisacodyl*) 10 Mg Supp, 10 MG NM Q24H PRN for CONSTIPATION, SUPP 10/23/17 Aspirin* (Aspirin* Chew) 81 Mg Tab.chew, 81 MG PO DAILY, TAB.CHEW 10/23/17 Acetaminophen* (Acetaminophen*) 650 Mg Tablet, 650 MG PO Q6H PRN for PAIN AND OR ELEVATED TEMP, #30 TAB 10/23/17 Medications Current Medications Acetaminophen (Tylenol Tab) 650 mg Q6H PRN PO MILD PAIN LEVEL 1-3 Last administered on 12/23/18 20:49; Admin Dose 650 MG; Start 12/22/18 at 10:00 Amlodipine Besylate (Norvasc) 5 mg DAILY PO Last administered on 12/24/18 08:28; Admin Dose 5 MG; Start 12/23/18 at 09:00 Aspirin (Halfprin) 81 mg DAILY PO Last administered on 12/24/18 08:28; Admin Dose 81 MG; Start 12/23/18 at 09:00 Atorvastatin Calcium (Lipitor) 80 mg QHS PO Last administered on 12/23/18 20:20; Admin Dose 80 MG; Start 12/22/18 at 21:00 Cholecalciferol (Vitamin D) 1,000 unit DAILY PO Last administered on 12/24/18 08:27; Admin Dose 1,000 UNIT; Start 12/23/18 at 09:00 Docusate Sodium (Colace) 100 mg DAILY PRN PO CONSTIPATION; Start 12/22/18 at 10:00 Isosorbide Dinitrate (Isordil) 30 mg DAILY PO Last administered on 12/24/18 08:28; Admin Dose 30 MG; Start 12/23/18 at 09:00 Metoprolol Tartrate (Lopressor) 50 mg BID PO Last administered on 12/24/18 08:29; Admin Dose 50 MG; Start 12/22/18 at 21:00 Multivitamins Therapeutic (Theragran) 1 tab DAILY PO Last administered on 12/24/18 08:28; Admin Dose 1 TAB; Start 12/23/18 at 09:00 Pantoprazole (Protonix Tab) 40 mg DAILY PO Last administered on 12/24/18 08:27; Admin Dose 40 MG; Start 12/23/18 at 09:00 Polyethylene Glycol (Miralax) 17 gm DAILY PO Last administered on 12/24/18 08:30; Admin Dose 17 GM; Start 12/23/18 at 09:00 Acetaminophen/ Hydrocodone Bitart ([place] (5/325)) 1 tab Q6H PRN PO PAIN LEVEL 7-10 Last administered on 12/23/18 14:26; Admin Dose 1 TAB; Start 12/22/18 at 10:30 Insulin Aspart (Novolog Insulin Pen) NOVOLOG *MILD* ALGORITHM WITH MEALS BEDTIME SC Last administered on 12/24/18 08:34; Admin Dose 2 UNIT; Start 12/22/18 at 18:00 Insulin Glargine (Lantus) 20 units QHS SC Last administered on 12/23/18 20:30; Admin Dose 20 UNITS; Start 12/23/18 at 21:00 Insulin Glargine (Lantus) 20 units QAM SC Last administered on 12/24/18 08:33; Admin Dose 20 UNITS; Start 12/24/18 at 09:00 Lidocaine (Lidoderm) 1 patch DAILY TD Last administered on 12/23/18 16:42; Admin Dose 1 PATCH; Start 12/24/18 at 09:00 Heparin Sodium (Porcine) (Heparin (5000 Units/1ml)) 5,000 unit BID SC Last administered on 12/24/18 08:32; Admin Dose 5,000 UNIT; Start 12/23/18 at 21:00 Nitroglycerin (Nitroglycerin 2% Oint) 1 inch Q6 PRN TD SBP>170 Last administered on 12/24/18 18:22; Admin Dose 1 INCH; Start 12/24/18 at 01:30 Hydralazine HCl (Apresoline) 25 mg Q6 PRN PO SBP >160 Last administered on 12/24/18 03:20; Admin Dose 25 MG; Start 12/24/18 at 01:30 Ondansetron HCl (Zofran Inj) 1 mg Q6H PRN IV NAUSEA AND/OR VOMITING Last administered on 12/24/18 19:40; Admin Dose 1 MG; Start 12/24/18 at 02:30 Ertapenem 0.5 gm/ Sodium Chloride 100 ml @ 200 mls/hr Q24H IVPB Last administered on 12/24/18 17:59; Admin Dose 200 MLS/HR; Start 12/24/18 at 17:00 Allergies: Coded Allergies: tetracycline (Verified Allergy, Mild, 12/22/18) Past Surgical History Past Surgical Hx: appendectomy, cholecystectomy, other (Tubal ligation) Social History Alcohol Use: none Smoking Status: Former smoker Exam/Review of Systems Exam Vitals Vital Signs Date Temp Pulse Resp B/P (MAP) Pulse Ox O2 O2 Flow FiO2 Time Delivery Rate 12/24/18 98.4 72 10 133/54 100 Room Air 20:00 (80) 12/22/18 2 07:04 Intake and Output 12/23/18 12/23/18 12/24/18 1515:00 23:00 07:00 IntakeIntake Total 320 ml 410 ml 600 ml BalanceBalance 320 ml 410 ml 600 ml Constitutional: alert Psych: no complaints Head: atraumatic Eyes: nl conjunctiva ENMT: nl external ears & nose Neck: supple Respiratory: normal air movement; No wheezing Cardiovascular: No jugular venous distention (JVD) Gastrointestinal: soft; No tender Genitourinary - Female: other (Pelvic exam: No discharge and no mass palpable) Musculoskeletal: other (Left hemiplegia) Extremities: other (Left hemiplegia) Neurological: other (Left-sided hemiplegia) Results Result Diagram: 12/24/18 0703 12/24/18 1508 Results 24hrs Laboratory Tests Test 12/24/18 02:09 12/24/18 07:03 12/24/18 08:14 12/24/18 09:45 Bedside Glucose 208 190 White Blood Count 8.9 Red Blood Count 2.83 L Hemoglobin 9.0 L Hematocrit 26.1 L Mean Corpuscular 92.2 Volume Mean Corpuscular 31.8 Hemoglobin Mean Corpuscular 34.5 Hemoglobin Concent Red Cell 11.5 Distribution Width Platelet Count 228 Mean Platelet Volume 9.3 Immature 0.200 Granulocytes % Neutrophils % 71.9 Lymphocytes % 17.7 Monocytes % 7.4 Eosinophils % 2.3 Basophils % 0.5 Nucleated Red Blood 0.0 Cells % Immature 0.020 Granulocytes # Neutrophils # 6.4 Lymphocytes # 1.6 Monocytes # 0.7 Eosinophils # 0.2 Basophils # 0.0 Nucleated Red Blood 0.0 Cells # Sodium Level 133 L Potassium Level 5.5 H Chloride Level 102 Carbon Dioxide Level 19 L Anion Gap 12 Blood Urea Nitrogen 63 H Creatinine 4.61 #H Est Glomerular 9 L Filtrat Rate mL/min Glucose Level 181 Calcium Level 9.2 Phosphorus Level 6.6 H Magnesium Level 2.0 Creatine Kinase < 20 L Test 12/24/18 10:25 12/24/18 14:13 12/24/18 15:08 12/24/18 17:57 Urine Color YELLOW Urine Clarity TURBID A Urine pH 6.0 Urine Specific 1.013 [place] Urine Ketones NEGATIVE Urine Nitrite NEGATIVE Urine Bilirubin NEGATIVE Urine Urobilinogen NEGATIVE Urine Leukocyte 3+ H Esterase Urine Microscopic 29 H RBC Urine Microscopic > 182 H WBC Urine Squamous FEW Epithelial Cells Urine Bacteria MODERATE Urine Mucus MANY A Urine Yeast FEW A (Budding) Urine Hemoglobin 2+ H Urine Random 25.29 Creatinine Urine Random Sodium 54 Urine Glucose 1+ H Urine Total Protein 287.0 H Bedside Glucose 160 108 Sodium Level 130 L Potassium Level 5.9 H Chloride Level 99 Carbon Dioxide Level 19 L Anion Gap 12 Blood Urea Nitrogen 67 H Creatinine 4.92 H Est Glomerular 9 L Filtrat Rate mL/min Glucose Level 134 # Calcium Level 8.9 Imaging Imaging Renal ultrasound: 1. Mild right hydronephrosis. 2. Mildly increased renal cortical echogenicity suggesting chronic medical don al disease. Medications Medication Current Medications Acetaminophen (Tylenol Tab) 650 mg Q6H PRN PO MILD PAIN LEVEL 1-3 Last administered on 12/23/18 20:49; Admin Dose 650 MG; Start 12/22/18 at 10:00 Amlodipine Besylate (Norvasc) 5 mg DAILY PO Last administered on 12/24/18 08:28; Admin Dose 5 MG; Start 12/23/18 at 09:00 Aspirin (Halfprin) 81 mg DAILY PO Last administered on 12/24/18 08:28; Admin Dose 81 MG; Start 12/23/18 at 09:00 Atorvastatin Calcium (Lipitor) 80 mg QHS PO Last administered on 12/23/18 20:20; Admin Dose 80 MG; Start 12/22/18 at 21:00 Cholecalciferol (Vitamin D) 1,000 unit DAILY PO Last administered on 12/24/18 08:27; Admin Dose 1,000 UNIT; Start 12/23/18 at 09:00 Docusate Sodium (Colace) 100 mg DAILY PRN PO CONSTIPATION; Start 12/22/18 at 10:00 Isosorbide Dinitrate (Isordil) 30 mg DAILY PO Last administered on 12/24/18 08:28; Admin Dose 30 MG; Start 12/23/18 at 09:00 Metoprolol Tartrate (Lopressor) 50 mg BID PO Last administered on 12/24/18 08:29; Admin Dose 50 MG; Start 12/22/18 at 21:00 Multivitamins Therapeutic (Theragran) 1 tab DAILY PO Last administered on 12/24/18 08:28; Admin Dose 1 TAB; Start 12/23/18 at 09:00 Pantoprazole (Protonix Tab) 40 mg DAILY PO Last administered on 12/24/18 08:27; Admin Dose 40 MG; Start 12/23/18 at 09:00 Polyethylene Glycol (Miralax) 17 gm DAILY PO Last administered on 12/24/18 08:30; Admin Dose 17 GM; Start 12/23/18 at 09:00 Acetaminophen/ Hydrocodone Bitart ([place] (5/325)) 1 tab Q6H PRN PO PAIN LEVEL 7-10 Last administered on 12/23/18 14:26; Admin Dose 1 TAB; Start 12/22/18 at 10:30 Insulin Aspart (Novolog Insulin Pen) NOVOLOG *MILD* ALGORITHM WITH MEALS BEDTIME SC Last administered on 12/24/18 08:34; Admin Dose 2 UNIT; Start 12/22/18 at 18:00 Insulin Glargine (Lantus) 20 units QHS SC Last administered on 12/23/18 20:30; Admin Dose 20 UNITS; Start 12/23/18 at 21:00 Insulin Glargine (Lantus) 20 units QAM SC Last administered on 12/24/18 08:33; Admin Dose 20 UNITS; Start 12/24/18 at 09:00 Lidocaine (Lidoderm) 1 patch DAILY TD Last administered on 12/23/18 16:42; Admin Dose 1 PATCH; Start 12/24/18 at 09:00 Heparin Sodium (Porcine) (Heparin (5000 Units/1ml)) 5,000 unit BID SC Last administered on 12/24/18 08:32; Admin Dose 5,000 UNIT; Start 12/23/18 at 21:00 Nitroglycerin (Nitroglycerin 2% Oint) 1 inch Q6 PRN TD SBP>170 Last administered on 12/24/18 18:22; Admin Dose 1 INCH; Start 12/24/18 at 01:30 Hydralazine HCl (Apresoline) 25 mg Q6 PRN PO SBP >160 Last administered on 12/24/18 03:20; Admin Dose 25 MG; Start 12/24/18 at 01:30 Ondansetron HCl (Zofran Inj) 1 mg Q6H PRN IV NAUSEA AND/OR VOMITING Last administered on 12/24/18 19:40; Admin Dose 1 MG; Start 12/24/18 at 02:30 Ertapenem 0.5 gm/ Sodium Chloride 100 ml @ 200 mls/hr Q24H IVPB Last administered on 12/24/18at 17:59; Admin Dose 200 MLS/HR; Start 12/24/18 at 17:00 JACQUELINE MAURER MD Dec 24, 2018 20:48
[2018-12-24] MEDS: ATORVASTATIN 80 MG TAB PO SCH (20:51)
[2018-12-24] MEDS: HYDROCODONE/APAP (5/325) TAB PO PRN (20:51)
[2018-12-24] MEDS: INSULIN GLARGINE [LANTus] (100 UNITS/ML) SYG SC SCH (20:58)
[2018-12-25] VITALS (16 sets, daily range): BP systolic 115–159; BP diastolic 55–73; PULSE 50–70; RESP 15–34
[2018-12-25] MEDS: HYDROCODONE/APAP (5/325) TAB PO PRN ×2 (02:22→17:08)
[2018-12-25] MEDS: INSULIN ASPART [NOVOLOG] 3 ML PEN SC SCH ×4 (07:55→21:00)
[2018-12-25] MEDS: SOD CHLORIDE 0.9% 1,000 ML IV SCH (08:20)
--- NOTE | 2018-12-25 08:37 | CONS ---
Consult Date/Type/Reason Admit Date/Time Dec 22, 2018 at 06:52 Initial Consult Date 12/24/18 Type of Consultation: Urology Reason for Consultation Right hydronephrosis and urinary tract infection Requesting Provider: MAIDA DOZIER DO Date/Time of Note DATE: 12/25/18 TIME: 08:32 Subjective Patient condition is unchanged. She denies any flank pain. Objective Vitals Vital Signs Date Temp Pulse Resp B/P (MAP) Pulse Ox O2 O2 Flow FiO2 Time Delivery Rate 12/25/18 50 08:15 12/25/18 97.9 20 135/64 98 Room Air 07:35 (87) 12/22/18 2 07:04 Intake and Output 12/24/18 12/24/18 12/25/18 1515:00 23:00 07:00 IntakeIntake Total 140 ml 500 ml 60 ml OutputOutput Total 560 ml 925 ml 135 ml BalanceBalance -420 ml -425 ml -75 ml Exam Abdomen is soft. She did have the CT scan last night and that was reported as: 1. No renal calculi are seen. 2. Borderline mild right-sided hydronephrosis is again seen with parenchymal heterogeneity of both kidneys, more severe on the right. Pyelonephritis is a likely consideration. 3. There is presumed residual contrast enhancement of the kidneys from the CT cerebral angiogram dated December 22, 2018 concerning for renal failure. 4. Mild bladder wall thickening is present despite the nondistended state. Cystitis is a likely consideration. 5. Small pulmonary nodules are seen measuring up to 0.4 cm in size. Correlation with other priors is suggested if available. This may not warrant additional followup if the patient has no risk factors per the Fleischner society guidelines. If the patient has risk factors a followup chest CT is suggested in 12 months. 6. Clinical and laboratory correlation is suggested for signs of infection. Consider follow-up MRI of the kidneys if there is concern for other infiltrative process. The patient does have urinary tract infection with E. coli ESBL. And that may explain the appearance of the bladder and also the mild right hydronephrosis. There are no stones or obstructions. Results/Medications Result Diagram: 12/25/18 0437 12/25/18 0437 Results 24 hrs Laboratory Tests Test 12/24/18 09:45 12/24/18 10:25 12/24/18 14:13 12/24/18 15:08 Creatine Kinase < 20 L Urine Color YELLOW Urine Clarity TURBID A Urine pH 6.0 Urine Specific 1.013 [place] Urine Ketones NEGATIVE Urine Nitrite NEGATIVE Urine Bilirubin NEGATIVE Urine Urobilinogen NEGATIVE Urine Leukocyte 3+ H Esterase Urine Microscopic 29 H RBC Urine Microscopic > 182 H WBC Urine Squamous FEW Epithelial Cells Urine Bacteria MODERATE Urine Mucus MANY A Urine Yeast FEW A (Budding) Urine Hemoglobin 2+ H Urine Random 25.29 Creatinine Urine Random Sodium 54 Urine Glucose 1+ H Urine Total Protein 287.0 H Bedside Glucose 160 Sodium Level 130 L Potassium Level 5.9 H Chloride Level 99 Carbon Dioxide Level 19 L Anion Gap 12 Blood Urea Nitrogen 67 H Creatinine 4.92 H Est Glomerular 9 L Filtrat Rate mL/min Glucose Level 134 # Calcium Level 8.9 Test 12/24/18 17:57 12/24/18 20:55 12/25/18 04:37 12/25/18 08:24 Bedside Glucose 108 99 86 White Blood Count 9.3 Red Blood Count 2.93 L Hemoglobin 9.2 L Hematocrit 26.5 L Mean Corpuscular 90.4 Volume Mean Corpuscular 31.4 Hemoglobin Mean Corpuscular 34.7 Hemoglobin Concent Red Cell 11.4 L Distribution Width Platelet Count 272 Mean Platelet Volume 9.1 Immature 0.400 Granulocytes % Neutrophils % 70.4 Lymphocytes % 18.8 Monocytes % 7.8 Eosinophils % 2.4 Basophils % 0.2 Nucleated Red Blood 0.0 Cells % Immature 0.040 H Granulocytes # Neutrophils # 6.6 Lymphocytes # 1.8 Monocytes # 0.7 Eosinophils # 0.2 Basophils # 0.0 Nucleated Red Blood 0.0 Cells # Sodium Level 133 L Potassium Level 4.8 Chloride Level 101 Carbon Dioxide Level 20 L Anion Gap 12 Blood Urea Nitrogen 69 H Creatinine 5.89 H Est Glomerular 7 L Filtrat Rate mL/min Glucose Level 62 #L Calcium Level 9.1 Phosphorus Level 8.0 H Magnesium Level 2.0 Home Meds Reported Medications Insulin Lispro (Humalog Kwikpen U-100) 100 Unit/1 Ml Insuln.pen, 0 SQ AC MEALS AND BEDTIME, EA 12/22/18 Cholecalciferol* (Vitamin D3*) 1,000 Unit Tablet, 1000 UNIT PO DAILY, TAB 12/22/18 Acetaminophen* (Acetaminophen*) 650 Mg Tablet, 650 MG PO Q6H PRN for MILD PAIN LEVEL 1-3, #30 TAB AND FEVER 12/22/18 Pantoprazole* (Protonix*) 40 Mg Tablet.dr, 40 MG PO DAILY, TAB 12/22/18 Multivitamin* (Daily Value*) 1 Each Tablet, 1 TAB PO DAILY, TAB 12/22/18 Polyethylene Glycol* (Miralax*) 17 Gm Powd.pack, 17 GM PO DAILY, #30 PACKET 12/22/18 Amlodipine Besylate* (Norvasc*) 5 Mg Tablet, 5 MG PO DAILY, TAB HOLD FOR SBP<110 OR HR <60 12/22/18 Aspirin (Low Dose Aspirin) 81 Mg Tablet.dr, 81 MG PO DAILY, #30 TAB 12/22/18 Atorvastatin* (Atorvastatin*) 80 Mg Tablet, 80 MG PO QHS, #30 TAB 12/22/18 Docusate Sodium* (Colace*) 100 Mg Capsule, 100 MG PO DAILY PRN for CONSTIPATION, #30 CAP 12/22/18 Ibuprofen* (Motrin*) 400 Mg Tab, 400 MG PO Q6H PRN for PAIN LEVEL 4-6, TAB 12/22/18 Insulin Detemir (Levemir Flextouch) 100 Unit/1 Ml Insuln.pen, 32 UNIT SQ QHS, EA 12/22/18 Insulin Detemir (Levemir Flextouch) 100 Unit/1 Ml Insuln.pen, 35 UNIT SQ QAM, EA 12/22/18 Isosorbide Dinitrate* (Isosorbide Dinitrate*) 30 Mg Tablet, 30 MG PO DAILY, TAB HOLD FOR SBP <110 OR HR<60 12/22/18 Metoprolol Tartrate* (Lopressor*) 50 Mg Tab, 50 MG PO BID, #60 TAB HOLD IF SBP <110 OR HR <60 GIVE WITH FOOD 12/22/18 Acetaminophen with Codeine (Acetaminophen-Cod #3 Tablet) 1 Each Tablet, 1 TAB PO Q6H PRN for SEVERE PAIN LEVEL 7-10, #7 TAB 12/22/18 Discontinued Reported Medications Insulin Regular, Human (Humulin R) 100 Unit/1 Ml Vial, 0-15 UNIT IJ AC MEALS, VIAL 10/23/17 Tetrahydrozoline Hcl* (Visine*) 0.05% - 15 Ml Drops, 2 DROP LEFT EYE BID PRN for RED EYES, #1 EA 10/23/17 Pregabalin* (Lyrica*) 25 Mg Capsule, 25 MG PO BID, CAP 10/23/17 Pantoprazole* (Pantoprazole*) 40 Mg Tablet.dr, 40 MG PO AC BREAKFAST, TAB 10/23/17 Multivitamins* (Theragran*) 1 Tab Tab, 1 TAB PO DAILY, TAB 10/23/17 Loratadine* (Loratadine*) 10 Mg Tablet, 10 MG PO DAILY, #30 TAB 10/23/17 Lactobacillus Acidophilus* (Lactinex*) 1 Tab Chew, 2 TAB PO BID, TAB 10/23/17 Hydrocodone/Acetaminophen ([place] 5-325 Tablet) 1 Each Tablet, 1 EACH PO Q6 PRN for SEVERE PAIN LEVEL 7-10, TAB 10/23/17 Gentamicin Sulfate* (Gentamicin Sulfate* Ophth) 0.3% - 5 Ml Drops, 1 DROP BOTH EYES Q4, EA 10/23/17 Felodipine* (Felodipine*) 10 Mg Tab.sr.24h, 10 MG PO DAILY, TAB.SA 10/23/17 Docusate Sodium* (Docusate Sodium*) 100 Mg Capsule, 100 MG PO QHS, #30 CAP 10/23/17 Cholecalciferol* (Vitamin D3*) 1,000 Unit Tablet, 1000 UNIT PO DAILY, TAB 10/23/17 Bisacodyl* (Bisacodyl*) 10 Mg Supp, 10 MG LA Q24H PRN for CONSTIPATION, SUPP 10/23/17 Aspirin* (Aspirin* Chew) 81 Mg Tab.chew, 81 MG PO DAILY, TAB.CHEW 10/23/17 Acetaminophen* (Acetaminophen*) 650 Mg Tablet, 650 MG PO Q6H PRN for PAIN AND OR ELEVATED TEMP, #30 TAB 10/23/17 Medications Current Medications Acetaminophen (Tylenol Tab) 650 mg Q6H PRN PO MILD PAIN LEVEL 1-3 Last administered on 12/23/18at 20:49; Admin Dose 650 MG; Start 12/22/18 at 10:00 Amlodipine Besylate (Norvasc) 5 mg DAILY PO Last administered on 12/24/18at 08:28; Admin Dose 5 MG; Start 12/23/18 at 09:00 Aspirin (Halfprin) 81 mg DAILY PO Last administered on 12/24/18at 08:28; Admin Dose 81 MG; Start 12/23/18 at 09:00 Atorvastatin Calcium (Lipitor) 80 mg QHS PO Last administered on 12/24/18 20:51; Admin Dose 80 MG; Start 12/22/18 at 21:00 Cholecalciferol (Vitamin D) 1,000 unit DAILY PO Last administered on 12/24/18 08:27; Admin Dose 1,000 UNIT; Start 12/23/18 at 09:00 Docusate Sodium (Colace) 100 mg DAILY PRN PO CONSTIPATION; Start 12/22/18 at 10:00 Isosorbide Dinitrate (Isordil) 30 mg DAILY PO Last administered on 12/24/18 08:28; Admin Dose 30 MG; Start 12/23/18 at 09:00 Metoprolol Tartrate (Lopressor) 50 mg BID PO Last administered on 12/24/18 20:51; Admin Dose 50 MG; Start 12/22/18 at 21:00 Multivitamins Therapeutic (Theragran) 1 tab DAILY PO Last administered on 12/24/18 08:28; Admin Dose 1 TAB; Start 12/23/18 at 09:00 Pantoprazole (Protonix Tab) 40 mg DAILY PO Last administered on 12/24/18 08:27; Admin Dose 40 MG; Start 12/23/18 at 09:00 Polyethylene Glycol (Miralax) 17 gm DAILY PO Last administered on 12/24/18 08:30; Admin Dose 17 GM; Start 12/23/18 at 09:00 Acetaminophen/ Hydrocodone Bitart ([place] (5/325)) 1 tab Q6H PRN PO PAIN LEVEL 7-10 Last administered on 12/25/18 02:22; Admin Dose 1 TAB; Start 12/22/18 at 10:30 Insulin Aspart (Novolog Insulin Pen) NOVOLOG *MILD* ALGORITHM WITH MEALS BEDTIME SC Last administered on 12/24/18 08:34; Admin Dose 2 UNIT; Start 12/22/18 at 18:00 Insulin Glargine (Lantus) 20 units QHS SC Last administered on 12/24/18 20:58; Admin Dose 20 UNITS; Start 12/23/18 at 21:00; Status Hold Insulin Glargine (Lantus) 20 units QAM SC Last administered on 12/24/18 08:33; Admin Dose 20 UNITS; Start 12/24/18 at 09:00; Status Hold Lidocaine (Lidoderm) 1 patch DAILY TD Last administered on 12/23/18 16:42; Admin Dose 1 PATCH; Start 12/24/18 at 09:00 Heparin Sodium (Porcine) (Heparin (5000 Units/1ml)) 5,000 unit BID SC Last administered on 12/24/18 20:57; Admin Dose 5,000 UNIT; Start 12/23/18 at 21:00 Nitroglycerin (Nitroglycerin 2% Oint) 1 inch Q6 PRN TD SBP>170 Last administered on 12/24/18 18:22; Admin Dose 1 INCH; Start 12/24/18 at 01:30 Hydralazine HCl (Apresoline) 25 mg Q6 PRN PO SBP >160 Last administered on 12/24/18 03:20; Admin Dose 25 MG; Start 12/24/18 at 01:30 Ondansetron HCl (Zofran Inj) 1 mg Q6H PRN IV NAUSEA AND/OR VOMITING Last administered on 12/24/18 19:40; Admin Dose 1 MG; Start 12/24/18 at 02:30 Ertapenem 0.5 gm/ Sodium Chloride 100 ml @ 200 mls/hr Q24H IVPB Last administered on 12/24/18 17:59; Admin Dose 200 MLS/HR; Start 12/24/18 at 17:00 Sodium Chloride 1,000 ml @ 50 mls/hr Q20H IV Last administered on 12/25/18 08:20; Admin Dose 50 MLS/HR; Start 12/25/18 at 07:30 Assessment/Plan Hospital Course (Demo Recall) 68-year-old female, with a past medical history cerebrovascular accident with left-sided hemiplegia, history of hypertension, history of GERD, history of diabetes, diabetic neuropathy, history of coronary artery disease, presented to [facility] Emergency Room from skilled nurse facility after she was noted to have deviated tongue, lethargy and dysarthria. Her creatinine was 1.99 and it did go up to 4.92. She had a renal ultrasound and that showed mild right hydronephrosis. A urological consultation was ther efore requested. Patient denies any prior history of kidney stones. She did have cholecystectomy and appendectomy and tubal ligation. [facility] years and that is because of her stroke. She states that she does urinate on her own and did not need an indwelling catheter before. On the examination there is no flank tenderness. She does have urinary tract infection with E. coli ESBL. CT scan of the abdomen and pelvis without IV contrast showed: 1. No renal calculi are seen. 2. Borderline mild right-sided hydronephrosis is again seen with parenchymal heterogeneity of both kidneys, more severe on the right. Pyelonephritis is a lik desi consideration. 3. There is presumed residual contrast enhancement of the kidneys from the CT c erebral angiogram dated December 22, 2018 concerning for renal failure. 4. Mild bladder wall thickening is present despite the nondistended state. Cystitis is a likely consideration. 5. Small pulmonary nodules are seen measuring up to 0.4 cm in size. Correlation with other priors is suggested if available. This may not warrant additional followup if the patient has no risk factors per the Fleischner society guidelines. If the patient has risk factors a followup chest CT is suggested in 12 months. 6. Clinical and laboratory correlation is suggested for signs of infection. Consider follow-up MRI of the kidneys if there is concern for other infiltrative process. The mild right hydronephrosis that she has and the appearance of the bladder may be explained by her UTI with ESBL. There are no stones or obstruction. JACQUELINE MAURER MD Dec 25, 2018 08:37
[2018-12-25] MEDS: POLYETHYLENE GLYCOL 17 GM PACKET PO SCH (09:00)
[2018-12-25] MEDS: ASPIRIN (EC) 81 MG TAB PO SCH (09:06)
[2018-12-25] MEDS: PANTOPRAZOLE (EC) 40 MG TAB PO SCH (09:06)
[2018-12-25] MEDS: MULTIVITAMINS THERAPEUTIC TAB PO SCH (09:06)
[2018-12-25] MEDS: LIDOCAINE 5% PATCH TD SCH (09:06)
[2018-12-25] MEDS: CHOLECALCIFEROL 1,000 UNIT TAB PO SCH (09:06)
[2018-12-25] MEDS: METOPROLOL 50 MG TAB PO SCH ×2 (09:07→21:24)
[2018-12-25] MEDS: ISOSORBIDE DINITRATE 10 MG TAB PO SCH (09:09)
[2018-12-25] MEDS: HEPARIN 5,000 UNIT/1 ML VIAL SC SCH ×2 (09:17→21:36)
[2018-12-25] MEDS: AMLODIPINE 5 MG TAB PO SCH (09:20)
--- NOTE | 2018-12-25 09:42 | PN ---
DATE: 12/25/2018 SUBJECTIVE: Yesterday I spoke with the patient in detail about her declining renal function and acut e kidney injury. I informed her that she likely suffered ATN due to hemodynamics and possible contra st exposure. I informed the patient that dialysis may be necessary as her potassium levels were wors ening and her kidney function continues to decline. The patient was adamant in that she does not wis h to have dialysis. I explained the possibility of if dialysis was not obtained. The patient understood and stated again that she did not want to be dialyzed. I also spoke with the patient's si alok Mckeon informing her about the possible need for urgent hemodialysis. The patient's sister is a ruth and stated that she respects the patient's decision. Yesterday, the patient was transferred to telemetry for observation in the setting of worsening renal failure. This morning when I spoke with the patient, she is complaining about nausea, some uremic s ymptoms, but again she is adamant that she does not wish to have dialysis. The patient is alert and oriented x3. OBJECTIVE: VITAL SIGNS: Blood pressure is 135/64, respirations 20, pulse 51, temperature 97.9. HEENT: Head is normocephalic. NECK: Supple. HEART: Regular rate. LUNGS: Show diminished breath sounds at the base. ABDOMEN: Soft, nontender to palpation. No rebound or guarding. EXTREMITIES: Negative for clubbing, cyanosis, no edema. DERMATOLOGIC: No rashes. MUSCULOSKELETAL: No joint effusions. NEUROLOGIC: No change in exam. MEDICATIONS: The patient's medications have been reviewed. LABORATORY DATA: From 12/25/2018 was reviewed, showed sodium 133, BUN 69, creatinine 5.89. White co unt 9.3, hemoglobin 9.2, platelet count is 272. The patient's repeat urinalysis was reviewed, shows pyuria, proteinuria. A repeat CT scan of abdomen and pelvis was performed which showed no renal calc patrick. Borderline mild right hydronephrosis. Residual contrast enhancement of the kidneys concerning for renal failure, small pulmonary nodule. The patient's repeat cultures have been reviewed. ASSESSMENT: 1. Oliguric acute kidney injury on top of chronic kidney disease stage III with previous baseline cr eatinine around 1.0 mg/dL. 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 The patient remains in injury phase of acute tubular nec rosis as renal function continues to decline. Please note, I spoke with the patient in detail about the need to initiate hemodialysis. The patient is adamant about not wanting dialysis. Risks and juarez efits have been explained to the patient including the possibility of if dialysis is not initia maryana. The patient was aware and responded verbally understanding risks and benefits. I spoke also wi th the patient's family, her sister discussing the possibility of dialysis. The patient's sister is aware and is respecting the patient's wishes. Plan at this point is to continue current treatment pl an. Continue supportive care, renally dose all meds. Will start the patient on gentle IV hydration, monitor closely. 2. Hyperkalemia secondary to acute kidney injury, improved, status post Kayexalate. Continue to mon itor. 3. Transient ischemic attack. Resolved. The patient is currently neurologically at baseline. IMAGIN. CT scan, MRI did not show any acute infarct. Will continue to monitor. 2. Right internal carotid stenosis. Appreciate vascular surgery's evaluation. No plans for surgery at this time. 3. Sepsis secondary to urinary tract infection. Continue current antibiotic regimen. 4. Mild right hydronephrosis. Appreciate urology's evaluation. CT scan was reviewed. The patient' s Mccall catheter in place. Continue to monitor. Follow up with recommendations. 5. Hyponatremia secondary to acute kidney injury. Continue to monitor. 6. Metabolic acidosis secondary to acute kidney injury. Continue to monitor bicarbonate levels. 7. Mineral bone disorder, monitor calcium and phosphorus levels. 8. Diabetes. The patient's insulin regimen will be adjusted in the setting of acute kidney injury. 9. Continue to monitor glucose levels closely. 10. Hypertension. Blood pressure is improved. Continue to monitor. 11. History of neuropathy. 12. Dyslipidemia. Continue statin therapy. 13. Constipation. Continue current bowel regimen. 14. Coronary artery disease. Continue medical management. 15. Gastrointestinal and deep vein thrombosis prophylaxis. Dictated By: MAIDA DOZIER DO NR/NTS Conf#: [id number] DID#: [id number] CC: JACQUELINE MAURER MD;*End*
[2018-12-25] MEDS ORDERED: TICAGRELOR 90 MG TABLET PO SCH (10:00)
--- NOTE | 2018-12-25 10:40 | CONS ---
Assessment/Plan Assessment/Plan Hospital Course (Demo Recall) Acute on chronic renal failure: baseline 1.8. Now worsening from contrast nephropathy. Refusing HD Right carotid 95% stenosis:She was evaluated by neurology and vascular surgery and thought not to be a candidate for intervention as she already had dense disease of the affected side without acute stroke. UTI CAD s/p PCI LAD 10/2017 HTN h/o CVA with left hemiparesis -continue ASA -lipitor 80mg -metoprolol 50mg BID -isordil 30mg -antibiotics -f/u renal function Consultation Date/Type/Reason Admit Date/Time Dec 22, 2018 at 06:52 Date of Consultation: Dec 25, 2018 Type of Consult Cardiology Reason for Consultation h/o PCI, PAD, CVA Requesting Provider: MAIDA DOZIER DO Date/Time of Note DATE: 12/25/18 TIME: 10:32 Hx of Present Illness 68 yo F with a h/o CVA with left hemiparesis, CAD s/p PCI of LAD 10/2017, DM, CKD (baseline Cr 1.8 with h/o contrast nephropathy after cardiac cath 10/20), who presented with slurred speech initially concerning for CVA. She had a contrast neck CT showing right carotid 95% stenosis. She was evaluated by neurology and vascular surgery and thought not to be a candidate for intervention as she already had dense disease of the affected side without acute stroke. She now has contrast nephropathy with continuously worsening renal function but refuses HD. No chest pain or SOB. No edema. Only complaint is nausea/vomiting. Past Medical History per [facility] Home Meds Reported Medications Insulin Lispro (Humalog Kwikpen U-100) 100 Unit/1 Ml Insuln.pen, 0 SQ AC MEALS AND BEDTIME, EA 12/22/18 Cholecalciferol* (Vitamin D3*) 1,000 Unit Tablet, 1000 UNIT PO DAILY, TAB 12/22/18 Acetaminophen* (Acetaminophen*) 650 Mg Tablet, 650 MG PO Q6H PRN for MILD PAIN LEVEL 1-3, #30 TAB AND FEVER 12/22/18 Pantoprazole* (Protonix*) 40 Mg Tablet.dr, 40 MG PO DAILY, TAB 12/22/18 Multivitamin* (Daily Value*) 1 Each Tablet, 1 TAB PO DAILY, TAB 12/22/18 Polyethylene Glycol* (Miralax*) 17 Gm Powd.pack, 17 GM PO DAILY, #30 PACKET 12/22/18 Amlodipine Besylate* (Norvasc*) 5 Mg Tablet, 5 MG PO DAILY, TAB HOLD FOR SBP<110 OR HR <60 12/22/18 Aspirin (Low Dose Aspirin) 81 Mg Tablet.dr, 81 MG PO DAILY, #30 TAB 12/22/18 Atorvastatin* (Atorvastatin*) 80 Mg Tablet, 80 MG PO QHS, #30 TAB 12/22/18 Docusate Sodium* (Colace*) 100 Mg Capsule, 100 MG PO DAILY PRN for CONSTIPATION, #30 CAP 12/22/18 Ibuprofen* (Motrin*) 400 Mg Tab, 400 MG PO Q6H PRN for PAIN LEVEL 4-6, TAB 12/22/18 Insulin Detemir (Levemir Flextouch) 100 Unit/1 Ml Insuln.pen, 32 UNIT SQ QHS, EA 12/22/18 Insulin Detemir (Levemir Flextouch) 100 Unit/1 Ml Insuln.pen, 35 UNIT SQ QAM, EA 12/22/18 Isosorbide Dinitrate* (Isosorbide Dinitrate*) 30 Mg Tablet, 30 MG PO DAILY, TAB HOLD FOR SBP <110 OR HR<60 12/22/18 Metoprolol Tartrate* (Lopressor*) 50 Mg Tab, 50 MG PO BID, #60 TAB HOLD IF SBP <110 OR HR <60 GIVE WITH FOOD 12/22/18 Acetaminophen with Codeine (Acetaminophen-Cod #3 Tablet) 1 Each Tablet, 1 TAB PO Q6H PRN for SEVERE PAIN LEVEL 7-10, #7 TAB 12/22/18 Discontinued Reported Medications Insulin Regular, Human (Humulin R) 100 Unit/1 Ml Vial, 0-15 UNIT IJ AC MEALS, VIAL 10/23/17 Tetrahydrozoline Hcl* (Visine*) 0.05% - 15 Ml Drops, 2 DROP LEFT EYE BID PRN for RED EYES, #1 EA 10/23/17 Pregabalin* (Lyrica*) 25 Mg Capsule, 25 MG PO BID, CAP 10/23/17 Pantoprazole* (Pantoprazole*) 40 Mg Tablet.dr, 40 MG PO AC BREAKFAST, TAB 10/23/17 Multivitamins* (Theragran*) 1 Tab Tab, 1 TAB PO DAILY, TAB 10/23/17 Loratadine* (Loratadine*) 10 Mg Tablet, 10 MG PO DAILY, #30 TAB 10/23/17 Lactobacillus Acidophilus* (Lactinex*) 1 Tab Chew, 2 TAB PO BID, TAB 10/23/17 Hydrocodone/Acetaminophen ([place]atone 5-325 Tablet) 1 Each Tablet, 1 EACH PO Q6 PRN for SEVERE PAIN LEVEL 7-10, TAB 10/23/17 Gentamicin Sulfate* (Gentamicin Sulfate* Ophth) 0.3% - 5 Ml Drops, 1 DROP BOTH EYES Q4, EA 10/23/17 Felodipine* (Felodipine*) 10 Mg Tab.sr.24h, 10 MG PO DAILY, TAB.SA 10/23/17 Docusate Sodium* (Docusate Sodium*) 100 Mg Capsule, 100 MG PO QHS, #30 CAP 10/23/17 Cholecalciferol* (Vitamin D3*) 1,000 Unit Tablet, 1000 UNIT PO DAILY, TAB 10/23/17 Bisacodyl* (Bisacodyl*) 10 Mg Supp, 10 MG DE Q24H PRN for CONSTIPATION, SUPP 10/23/17 Aspirin* (Aspirin* Chew) 81 Mg Tab.chew, 81 MG PO DAILY, TAB.CHEW 10/23/17 Acetaminophen* (Acetaminophen*) 650 Mg Tablet, 650 MG PO Q6H PRN for PAIN AND OR ELEVATED TEMP, #30 TAB 10/23/17 Medications Current Medications Acetaminophen (Tylenol Tab) 650 mg Q6H PRN PO MILD PAIN LEVEL 1-3 Last administered on 12/23/18 20:49; Admin Dose 650 MG; Start 12/22/18 at 10:00 Amlodipine Besylate (Norvasc) 5 mg DAILY PO Last administered on 12/25/18 09:20; Admin Dose 5 MG; Start 12/23/18 at 09:00; Status Hold Aspirin (Halfprin) 81 mg DAILY PO Last administered on 12/25/18 09:06; Admin Dose 81 MG; Start 12/23/18 at 09:00 Atorvastatin Calcium (Lipitor) 80 mg QHS PO Last administered on 12/24/18 20:51; Admin Dose 80 MG; Start 12/22/18 at 21:00 Cholecalciferol (Vitamin D) 1,000 unit DAILY PO Last administered on 12/25/18 09:06; Admin Dose 1,000 UNIT; Start 12/23/18 at 09:00 Docusate Sodium (Colace) 100 mg DAILY PRN PO CONSTIPATION; Start 12/22/18 at 10:00 Isosorbide Dinitrate (Isordil) 30 mg DAILY PO Last administered on 12/25/18 09:09; Admin Dose 30 MG; Start 12/23/18 at 09:00 Metoprolol Tartrate (Lopressor) 50 mg BID PO Last administered on 12/25/18 09:07; Admin Dose 50 MG; Start 12/22/18 at 21:00 Multivitamins Therapeutic (Theragran) 1 tab DAILY PO Last administered on 12/25/18 09:06; Admin Dose 1 TAB; Start 12/23/18 at 09:00 Pantoprazole (Protonix Tab) 40 mg DAILY PO Last administered on 12/25/18 09:06; Admin Dose 40 MG; Start 12/23/18 at 09:00 Polyethylene Glycol (Miralax) 17 gm DAILY PO Last administered on 12/24/18 08:30; Admin Dose 17 GM; Start 12/23/18 at 09:00 Acetaminophen/ Hydrocodone Bitart ([place] (5/325)) 1 tab Q6H PRN PO PAIN LEVEL 7-10 Last administered on 12/25/18 02:22; Admin Dose 1 TAB; Start 12/22/18 at 10:30 Insulin Aspart (Novolog Insulin Pen) NOVOLOG *MILD* ALGORITHM WITH MEALS BEDTIME SC Last administered on 12/24/18 08:34; Admin Dose 2 UNIT; Start 12/22/18 at 18:00 Insulin Glargine (Lantus) 20 units QHS SC Last administered on 12/24/18 20:58; Admin Dose 20 UNITS; Start 12/23/18 at 21:00; Status Hold Insulin Glargine (Lantus) 20 units QAM SC Last administered on 12/24/18 08:33; Admin Dose 20 UNITS; Start 12/24/18 at 09:00; Status Hold Lidocaine (Lidoderm) 1 patch DAILY TD Last administered on 12/25/18 09:06; Admin Dose 1 PATCH; Start 12/24/18 at 09:00 Heparin Sodium (Porcine) (Heparin (5000 Units/1ml)) 5,000 unit BID SC Last administered on 12/25/18 09:17; Admin Dose 5,000 UNIT; Start 12/23/18 at 21:00 Nitroglycerin (Nitroglycerin 2% Oint) 1 inch Q6 PRN TD SBP>170 Last administered on 12/24/18 18:22; Admin Dose 1 INCH; Start 12/24/18 at 01:30 Hydralazine HCl (Apresoline) 25 mg Q6 PRN PO SBP >160 Last administered on 12/24/18 03:20; Admin Dose 25 MG; Start 12/24/18 at 01:30 Ondansetron HCl (Zofran Inj) 1 mg Q6H PRN IV NAUSEA AND/OR VOMITING Last administered on 12/24/18 19:40; Admin Dose 1 MG; Start 12/24/18 at 02:30 Ertapenem 0.5 gm/ Sodium Chloride 100 ml @ 200 mls/hr Q24H IVPB Last administered on 12/24/18 17:59; Admin Dose 200 MLS/HR; Start 12/24/18 at 17:00 Sodium Chloride 1,000 ml @ 50 mls/hr Q20H IV Last administered on 12/25/18 08:20; Admin Dose 50 MLS/HR; Start 12/25/18 at 07:30 Allergies: Coded Allergies: tetracycline (Verified Allergy, Mild, 12/22/18) Past Surgical History Past Surgical Hx: appendectomy, cholecystectomy, other (Tubal ligation) Social History Alcohol Use: none Smoking Status: Former smoker Exam/Review of Systems Vital Signs Vitals Vital Signs Date Temp Pulse Resp B/P (MAP) Pulse Ox O2 O2 Flow FiO2 Time Delivery Rate 12/25/18 50 08:15 12/25/18 97.9 20 135/64 98 Room Air 07:35 (87) 12/22/18 2 07:04 Intake and Output 12/24/18 12/24/18 12/25/18 1515:00 23:00 07:00 IntakeIntake Total 140 ml 500 ml 60 ml OutputOutput Total 560 ml 925 ml 135 ml BalanceBalance -420 ml -425 ml -75 ml Exam Constitutional: alert, oriented Psych: no complaints, nl mood/affect Head: normocephalic, atraumatic Neck: supple; No jvd Respiratory: diminished breath sounds; No clear to auscultation Cardiovascular: regular rate and rhythm; No edema, No systolic murmur Gastrointestinal: soft, non-tender; No distended Musculoskeletal: No nl extremities to inspection Neurological: nl mental status, nl speech Labs Result Diagram: 12/25/1843612/25/187 Results 24hrs Laboratory Tests Test 12/24/18 14:13 12/24/18 15:08 12/24/18 17:57 12/24/18 20:55 Bedside Glucose 160 108 99 Sodium Level 130 L Potassium Level 5.9 H Chloride Level 99 Carbon Dioxide Level 19 L Anion Gap 12 Blood Urea Nitrogen 67 H Creatinine 4.92 H Est Glomerular 9 L Filtrat Rate mL/min Glucose Level 134 # Calcium Level 8.9 Test 12/25/18 04:37 12/25/18 08:24 White Blood Count 9.3 Red Blood Count 2.93 L Hemoglobin 9.2 L Hematocrit 26.5 L Mean Corpuscular 90.4 Volume Mean Corpuscular 31.4 Hemoglobin Mean Corpuscular 34.7 Hemoglobin Concent Red Cell 11.4 L Distribution Width Platelet Count 272 Mean Platelet Volume 9.1 Immature 0.400 Granulocytes % Neutrophils % 70.4 Lymphocytes % 18.8 Monocytes % 7.8 Eosinophils % 2.4 Basophils % 0.2 Nucleated Red Blood 0.0 Cells % Immature 0.040 H Granulocytes # Neutrophils # 6.6 Lymphocytes # 1.8 Monocytes # 0.7 Eosinophils # 0.2 Basophils # 0.0 Nucleated Red Blood 0.0 Cells # Sodium Level 133 L Potassium Level 4.8 Chloride Level 101 Carbon Dioxide Level 20 L Anion Gap 12 Blood Urea Nitrogen 69 H Creatinine 5.89 H Est Glomerular 7 L Filtrat Rate mL/min Glucose Level 62 #L Calcium Level 9.1 Phosphorus Level 8.0 H Magnesium Level 2.0 Bedside Glucose 86 Medications Medications Current Medications Acetaminophen (Tylenol Tab) 650 mg Q6H PRN PO MILD PAIN LEVEL 1-3 Last administered on 12/23/18at 20:49; Admin Dose 650 MG; Start 12/22/18 at 10:00 Amlodipine Besylate (Norvasc) 5 mg DAILY PO Last administered on 12/25/18at 09:20; Admin Dose 5 MG; Start 12/23/18 at 09:00; Status Hold Aspirin (Halfprin) 81 mg DAILY PO Last administered on 12/25/18at 09:06; Admin Dose 81 MG; Start 12/23/18 at 09:00 Atorvastatin Calcium (Lipitor) 80 mg QHS PO Last administered on 12/24/18 20:51; Admin Dose 80 MG; Start 12/22/18 at 21:00 Cholecalciferol (Vitamin D) 1,000 unit DAILY PO Last administered on 12/25/18 09:06; Admin Dose 1,000 UNIT; Start 12/23/18 at 09:00 Docusate Sodium (Colace) 100 mg DAILY PRN PO CONSTIPATION; Start 12/22/18 at 10:00 Isosorbide Dinitrate (Isordil) 30 mg DAILY PO Last administered on 12/25/18 09:09; Admin Dose 30 MG; Start 12/23/18 at 09:00 Metoprolol Tartrate (Lopressor) 50 mg BID PO Last administered on 12/25/18 09:07; Admin Dose 50 MG; Start 12/22/18 at 21:00 Multivitamins Therapeutic (Theragran) 1 tab DAILY PO Last administered on 12/25/18 09:06; Admin Dose 1 TAB; Start 12/23/18 at 09:00 Pantoprazole (Protonix Tab) 40 mg DAILY PO Last administered on 12/25/18 09:06; Admin Dose 40 MG; Start 12/23/18 at 09:00 Polyethylene Glycol (Miralax) 17 gm DAILY PO Last administered on 12/24/18 08:30; Admin Dose 17 GM; Start 12/23/18 at 09:00 Acetaminophen/ Hydrocodone Bitart ([place] (5/325)) 1 tab Q6H PRN PO PAIN LEVEL 7-10 Last administered on 12/25/18 02:22; Admin Dose 1 TAB; Start 12/22/18 at 10:30 Insulin Aspart (Novolog Insulin Pen) NOVOLOG *MILD* ALGORITHM WITH MEALS BEDTIME SC Last administered on 12/24/18 08:34; Admin Dose 2 UNIT; Start 12/22/18 at 18:00 Insulin Glargine (Lantus) 20 units QHS SC Last administered on 12/24/18 20:58; Admin Dose 20 UNITS; Start 12/23/18 at 21:00; Status Hold Insulin Glargine (Lantus) 20 units QAM SC Last administered on 12/24/18 08:33; Admin Dose 20 UNITS; Start 12/24/18 at 09:00; Status Hold Lidocaine (Lidoderm) 1 patch DAILY TD Last administered on 12/25/18 09:06; Admin Dose 1 PATCH; Start 12/24/18 at 09:00 Heparin Sodium (Porcine) (Heparin (5000 Units/1ml)) 5,000 unit BID SC Last administered on 12/25/18 09:17; Admin Dose 5,000 UNIT; Start 12/23/18 at 21:00 Nitroglycerin (Nitroglycerin 2% Oint) 1 inch Q6 PRN TD SBP>170 Last admin istered on 12/24/18 18:22; Admin Dose 1 INCH; Start 12/24/18 at 01:30 Hydralazine HCl (Apresoline) 25 mg Q6 PRN PO SBP >160 Last administered on 12/24/18 03:20; Admin Dose 25 MG; Start 12/24/18 at 01:30 Ondansetron HCl (Zofran Inj) 1 mg Q6H PRN IV NAUSEA AND/OR VOMITING Last administered on 12/24/18 19:40; Admin Dose 1 MG; Start 12/24/18 at 02:30 Ertapenem 0.5 gm/ Sodium Chloride 100 ml @ 200 mls/hr Q24H IVPB Last administered on 12/24/18 17:59; Admin Dose 200 MLS/HR; Start 12/24/18 at 17:00 Sodium Chloride 1,000 ml @ 50 mls/hr Q20H IV Last administered on 12/25/18 08:20; Admin Dose 50 MLS/HR; Start 12/25/18 at 07:30 OSCAR OLSON Dec 25, 2018 10:40
--- NOTE | 2018-12-25 15:16 | CONS ---
Assessment/Plan Assessment/Plan Hospital Course (Demo Recall) No acute changes overnight. No fevers Urine culture grew E. coli ESBL. Allergies: Tetracycline Antimicrobials: Invanz Indwelling: Mccall Physical examination: Obese well-developed elderly woman who is in no distress. Head atraumatic normocephalic neck is supple chest rise symmetrical breath sounds clear. Heart: S1-S2. Abdomen soft bowel sounds present. Assessment: 1. Sepsis, present on admission 2. E. coli ESBL UTI 3. Morbid obesity 4. Diabetes 5. 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 Acute renal failure Plan: Stable, nephrology rec-s noted, continue antibiotics Consultation Date/Type/Reason Admit Date/Time Dec 22, 2018 at 06:52 Initial Consult Date Type of Consult id Requesting Provider: MAIDA DOZIER DO Date/Time of Note DATE: 12/25/18 TIME: 15:15 Exam/Review of Systems Exam Vitals Vital Signs Date Temp Pulse Resp B/P (MAP) Pulse Ox O2 O2 Flow FiO2 Time Delivery Rate 12/25/18 61 12:23 12/25/18 97.4 20 124/55 99 Room Air 11:34 (78) 12/22/18 2 07:04 Intake and Output 12/24/18 12/24/18 12/25/18 1515:00 23:00 07:00 IntakeIntake Total 140 ml 500 ml 60 ml OutputOutput Total 560 ml 925 ml 135 ml BalanceBalance -420 ml -425 ml -75 ml Results Result Diagram: 12/25/18 0437 12/25/18 0437 Results 24hrs Laboratory Tests Test 12/24/18 17:57 12/24/18 20:55 12/25/18 04:37 12/25/18 08:24 Bedside Glucose 108 99 86 White Blood Count 9.3 Red Blood Count 2.93 L Hemoglobin 9.2 L Hematocrit 26.5 L Mean Corpuscular 90.4 Volume Mean Corpuscular 31.4 Hemoglobin Mean Corpuscular 34.7 Hemoglobin Concent Red Cell 11.4 L Distribution Width Platelet Count 272 Mean Platelet Volume 9.1 Immature 0.400 Granulocytes % Neutrophils % 70.4 Lymphocytes % 18.8 Monocytes % 7.8 Eosinophils % 2.4 Basophils % 0.2 Nucleated Red Blood 0.0 Cells % Immature 0.040 H Granulocytes # Neutrophils # 6.6 Lymphocytes # 1.8 Monocytes # 0.7 Eosinophils # 0.2 Basophils # 0.0 Nucleated Red Blood 0.0 Cells # Sodium Level 133 L Potassium Level 4.8 Chloride Level 101 Carbon Dioxide Level 20 L Anion Gap 12 Blood Urea Nitrogen 69 H Creatinine 5.89 H Est Glomerular 7 L Filtrat Rate mL/min Glucose Level 62 #L Calcium Level 9.1 Phosphorus Level 8.0 H Magnesium Level 2.0 Test 12/25/18 11:54 Bedside Glucose 109 Medications Medication Current Medications Acetaminophen (Tylenol Tab) 650 mg Q6H PRN PO MILD PAIN LEVEL 1-3 Last administered on 12/23/18 20:49; Admin Dose 650 MG; Start 12/22/18 at 10:00 Amlodipine Besylate (Norvasc) 5 mg DAILY PO Last administered on 12/25/18 09:20; Admin Dose 5 MG; Start 12/23/18 at 09:00; Status Hold Aspirin (Halfprin) 81 mg DAILY PO Last administered on 12/25/18 09:06; Admin Dose 81 MG; Start 12/23/18 at 09:00 Atorvastatin Calcium (Lipitor) 80 mg QHS PO Last administered on 12/24/18 20:51; Admin Dose 80 MG; Start 12/22/18 at 21:00 Cholecalciferol (Vitamin D) 1,000 unit DAILY PO Last administered on 12/25/18 09:06; Admin Dose 1,000 UNIT; Start 12/23/18 at 09:00 Docusate Sodium (Colace) 100 mg DAILY PRN PO CONSTIPATION; Start 12/22/18 at 10:00 Isosorbide Dinitrate (Isordil) 30 mg DAILY PO Last administered on 12/25/18 09:09; Admin Dose 30 MG; Start 12/23/18 at 09:00 Metoprolol Tartrate (Lopressor) 50 mg BID PO Last administered on 12/25/18 09:07; Admin Dose 50 MG; Start 12/22/18 at 21:00 Multivitamins Therapeutic (Theragran) 1 tab DAILY PO Last administered on 12/25/18 09:06; Admin Dose 1 TAB; Start 12/23/18 at 09:00 Pantoprazole (Protonix Tab) 40 mg DAILY PO Last administered on 12/25/18 09:06; Admin Dose 40 MG; Start 12/23/18 at 09:00 Polyethylene Glycol (Miralax) 17 gm DAILY PO Last administered on 12/24/18 08:30; Admin Dose 17 GM; Start 12/23/18 at 09:00 Acetaminophen/ Hydrocodone Bitart ([place] (5/325)) 1 tab Q6H PRN PO PAIN LEVEL 7-10 Last administered on 12/25/18 02:22; Admin Dose 1 TAB; Start 12/22/18 at 10:30 Insulin Aspart (Novolog Insulin Pen) NOVOLOG *MILD* ALGORITHM WITH MEALS BEDTIME SC Last administered on 12/24/18 08:34; Admin Dose 2 UNIT; Start 12/22/18 at 18:00 Insulin Glargine (Lantus) 20 units QHS SC Last administered on 12/24/18 20:58; Admin Dose 20 UNITS; Start 12/23/18 at 21:00; Status Hold Insulin Glargine (Lantus) 20 units QAM SC Last administered on 12/24/18 08:33; Admin Dose 20 UNITS; Start 12/24/18 at 09:00; Status Hold Lidocaine (Lidoderm) 1 patch DAILY TD Last administered on 12/25/18 09:06; Admin Dose 1 PATCH; Start 12/24/18 at 09:00 Heparin Sodium (Porcine) (Heparin (5000 Units/1ml)) 5,000 unit BID SC Last administered on 12/25/18 09:17; Admin Dose 5,000 UNIT; Start 12/23/18 at 21:00 Nitroglycerin (Nitroglycerin 2% Oint) 1 inch Q6 PRN TD SBP>170 Last administered on 12/24/18 18:22; Admin Dose 1 INCH; Start 12/24/18 at 01:30 Hydralazine HCl (Apresoline) 25 mg Q6 PRN PO SBP >160 Last administered on 12/24/18 03:20; Admin Dose 25 MG; Start 12/24/18 at 01:30 Ondansetron HCl (Zofran Inj) 1 mg Q6H PRN IV NAUSEA AND/OR VOMITING Last administered on 12/24/18 19:40; Admin Dose 1 MG; Start 12/24/18 at 02:30 Ertapenem 0.5 gm/ Sodium Chloride 100 ml @ 200 mls/hr Q24H IVPB Last administered on 12/24/18at 17:59; Admin Dose 200 MLS/HR; Start 12/24/18 at 17:00 Sodium Chloride 1,000 ml @ 50 mls/hr Q20H IV Last administered on 12/25/18at 08:20; Admin Dose 50 MLS/HR; Start 12/25/18 at 07:30 JASON GLOVER NP Dec 25, 2018 15:16
[2018-12-25] MEDS: ERTAPENEM SODIUM 0.5 GM in SOD CHLORIDE 0.9% 100 ML IVPB SCH (17:11)
--- NOTE | 2018-12-25 17:28 | RADRPT ---
Echocardiogram Report Patient Name: Erik HUFF ID: [id number] : 1950 (68y 10m)Study Date: 12/25/2018 11:03:25 AM Gender: FAccession #: [id number] Tech: Phuc Head [facility] Location: [facility] Ref.Physician: OSCAR CAUSEY Height(Cm): BSA: Weight(Kg): Quality: AdequateAccount #: Procedures: Echocardiographic Report: Transthoracic echocardiogram with complete 2D, M-Mode, and doppler examination. Indications: Cerebrovascular Accident, Hx of MS. Measurements: 2D/M Mode Doppler Measurement Value Normal Range Measurement Value Normal Range LVIDd 2D 4.4 [ 3.8 - 5.2 ] cm AV Peak Neri 1.2 [ 100.0 - 170.0 ] cm/sec LVIDs 2D 2.7 [ 2.2 - 3.5 ] cm AV Peak PG 6.0 [ 2.0 - 9.0 ] mmHg LVPWd 2D 0.9 [ 0.6 - 0.9 ] cm LVOT Peak Neri 1.0 [ 70.0 - 110.0 ] cm/sec IVSd 2D 1.5 [ 0.6 - 0.9 ] cm LVOT Peak PG 4.0 [ 2.0 - 6.0 ] mmHg AoR Diam 2D 2.8 [ 2.3 - 3.1 ] cm MV E Peak Neri 0.5 [ 60.0 - 130.0 ] cm/sec EDV 2D 86.8 [ 46.0 - 106.0 ] ml MV A Peak Neri 1.0 [ 100.0 - 120.0 ] cm/sec ESV 2D 28.0 [ 14.0 - 42.0 ] ml MV E/A 0.5 [ 0.8 - 1.5 ] ratio EF 2D 67.7 [ 54.0 - 74.0 ] percent MV Decel Time 222 [ 104 - 258 ] msec LA Dimen 2D 3.5 [ 2.7 - 3.8 ] cm Lat E` Neri 0.1 [ 10.0 - 15.0 ] cm/sec Lateral E/E` 7.7 [ 1.0 - 2.0 ] ratio MV E/A 0.5 [ 0.8 - 1.5 ] ratio TR Peak Neri 2.4 [ 100.0 - 280.0 ] cm/sec TR Peak PG 23.0 mmHg RVSP 26.0 [ 10.0 - 36.0 ] mmHg Findings: Left Ventricle: Normal left ventricular systolic function. Normal left ventricular cavity size. Mild-moderate concentric left ventricular hypertrophy. Ejection fraction is visually estimated at 65 %. Tissue Doppler/Mitral Doppler indices are consistent with impaired relaxation (Stage I diastolic dysfunction). Right Ventricle: Normal right ventricular size. Normal right ventricular systolic function. Left Atrium: There is mild enlargement of left atrium. Right Atrium: The right atrium is normal in size. Mitral Valve: Normal appearance of the mitral valve. Mild mitral valve regurgitation. Aortic Valve: Normal appearance of the aortic valve. No significant aortic stenosis or insufficiency. Tricuspid Valve: Normal appearance of the tricuspid valve. Estimated peak PA systolic pressure 26 mmHg. There is trace tricuspid regurgitation. Pericardium: Normal pericardium with no significant pericardial effusion. Left pleural effusion seen. Aorta: Normal aortic root. IVC: Normal size and normal respiratory collapse consistent with normal right atrial pressure. Conclusions: Normal left ventricular systolic function. Normal left ventricular cavity size. Mild-moderate concentric left ventricular hypertrophy. Ejection fraction is visually estimated at 65 %. Tissue Doppler/Mitral Doppler indices are consistent with impaired relaxation (Stage I diastolic dysfunction). No significant valvular stenosis or regurgitation seen. Estimated peak PA systolic pressure 26 mmHg. Normal size and normal respiratory collapse consistent with normal right atrial pressure. Electronically Signed By: Oscar Causey 2018-12-25 17:27:26 PDT
[2018-12-25] MEDS: ATORVASTATIN 80 MG TAB PO SCH (21:24)
[2018-12-25] MEDS: NITROGLYCERIN 2% 1 GM OINT PKT TD PRN (21:44)
[2018-12-26] VITALS (12 sets, daily range): BP systolic 145–190; BP diastolic 56–100; PULSE 58–71; RESP 18–22
[2018-12-26] MEDS: SOD CHLORIDE 0.9% 1,000 ML IV SCH (01:00)
[2018-12-26] MEDS: INSULIN ASPART [NOVOLOG] 3 ML PEN SC SCH ×4 (07:55→20:18)
[2018-12-26] MEDS: CHOLECALCIFEROL 1,000 UNIT TAB PO SCH (08:46)
[2018-12-26] MEDS: PANTOPRAZOLE (EC) 40 MG TAB PO SCH (08:46)
[2018-12-26] MEDS: ASPIRIN (EC) 81 MG TAB PO SCH (08:47)
[2018-12-26] MEDS: ISOSORBIDE DINITRATE 10 MG TAB PO SCH (08:47)
[2018-12-26] MEDS: MULTIVITAMINS THERAPEUTIC TAB PO SCH (08:48)
[2018-12-26] MEDS: METOPROLOL 50 MG TAB PO SCH ×2 (08:48→20:15)
[2018-12-26] MEDS: POLYETHYLENE GLYCOL 17 GM PACKET PO SCH (08:48)
[2018-12-26] MEDS: LIDOCAINE 5% PATCH TD SCH (08:51)
[2018-12-26] MEDS: HYDROCODONE/APAP (5/325) TAB PO PRN ×2 (09:16→20:15)
[2018-12-26] MEDS: AMLODIPINE 10 MG TAB PO SCH (09:16)
[2018-12-26] MEDS: HEPARIN 5,000 UNIT/1 ML VIAL SC SCH ×2 (09:34→20:18)
--- NOTE | 2018-12-26 10:02 | PN ---
DATE: 12/26/2018 SUBJECTIVE: The patient is stable. The patient has intermittent bouts of nausea, no shortness of br eath. OBJECTIVE: VITAL SIGNS: Blood pressure is 182/76, respiratory rate 20, pulse 63, temperature 98.2. HEENT: Head is normocephalic. NECK: Supple. HEART: Regular rate. LUNGS: Show diminished breath sounds at the base. ABDOMEN: Soft, nontender to palpation without rebound or guarding. EXTREMITIES: Negative for clubbing, cyanosis, no edema. DERMATOLOGIC: No rashes. MUSCULOSKELETAL: Patient has continued to have positive tenderness to palpation on the right axillar y fold adjacent to the third rib. MEDICATIONS: Have been reviewed. LABORATORY DATA: Pending. Cultures have been reviewed. ASSESSMENT AND PLAN: 1. Nonoliguric acute kidney injury on top of chronic kidney disease stage III with a previous baseli ne creatinine around 1 mg/dL. Etiology of acute kidney injury is secondary to acute tubular necrosis due to contrast nephropathy. The patient remains in injury phase of acute tubular necrosis. The patient does have some mild uremic symptoms. However, the patient is refusing hemodialysis. I s poke with the patient this morning about dialysis. She continues to refuse. At this point, will con tinue current treatment plan, supportive care, renally dose all meds. Will discontinue IV fluids. 2. Hyperkalemia secondary to acute kidney injury, improved. Continue to monitor. 3. Transient ischemic attack, resolved. Continue to monitor. 4. Right internal carotid stenosis. The patient was evaluated by vascular surgery, no plans for int ervention at this time. 5. Sepsis secondary to urinary tract infection. Continue current antibiotic regimen. 6. Mild right hydronephrosis. Continue to monitor. Appreciate urology evaluation. 7. Hyponatremia secondary to acute kidney injury. Continue to monitor. 8. Metabolic acidosis secondary to acute kidney injury. Continue to monitor bicarbonate levels. 9. Mineral bone disorder, monitor calcium and phosphorus levels. 10. Diabetes. Continue current insulin regimen. 11. Hypertension. Blood pressure is elevated. Will discontinue IV fluids, continue current blood p ressure regimen. Reintroduce patient on Norvasc. 12. History of neuropathy. 13. Dyslipidemia. Continue statin therapy. 14. Constipation. Continue current bowel regimen. 15. History of coronary artery disease. Continue current medical management. 16. Gastrointestinal and deep vein thrombosis prophylaxis. Dictated By: MAIDA GARCIA/CALISTA Conf#: [id number] DID#: [id number]
--- NOTE | 2018-12-26 12:16 | CONS ---
Assessment/Plan Assessment/Plan Hospital Course (Demo Recall) Acute on chronic renal failure: baseline 1.8. Worsened from contrast nephropathy, now improving Right carotid 95% stenosis:She was evaluated by neurology and vascular surgery and thought not to be a candidate for intervention as she already had dense disease of the affected side without acute stroke. UTI CAD s/p PCI LAD 10/2017 HTN h/o CVA with left hemiparesis -continue ASA -lipitor 80mg -metoprolol 50mg BID -isordil 30mg -amlodipine 10mg -antibiotics Consultation Date/Type/Reason Admit Date/Time Dec 22, 2018 at 06:52 Initial Consult Date 12/25/18 Type of Consult Cardiology Requesting Provider: MAIDA DOZIER DO Date/Time of Note DATE: 12/26/18 TIME: 12:15 24 HR Interval Summary Free Text/Dictation UOP increased and Cr improving. No complaints Exam/Review of Systems Vital Signs Vitals Vital Signs Date Temp Pulse Resp B/P (MAP) Pulse Ox O2 O2 Flow FiO2 Time Delivery Rate 12/26/18 60 12:04 12/26/18 98.2 20 182/76 97 08:01 (111) 12/25/18 Room Air 16:13 12/22/18 2 07:04 Intake and Output 12/25/18 12/25/18 12/26/18 1414:59 22:59 06:59 IntakeIntake Total 1050 ml 300 ml OutputOutput Total 2500 ml BalanceBalance 1050 ml -2200 ml Exam Constitutional: alert, oriented Psych: no complaints, nl mood/affect Head: normocephalic, atraumatic Neck: No jvd Respiratory: diminished breath sounds; No clear to auscultation Cardiovascular: regular rate and rhythm; No edema Gastrointestinal: soft, non-tender; No distended Neurological: nl mental status, nl speech Labs Result Diagram: 12/26/18 0728 12/26/18 0728 Results 24hrs Laboratory Tests Test 12/25/18 17:43 12/25/18 21:21 12/26/18 07:28 12/26/18 08:42 Bedside Glucose 143 117 130 White Blood Count 5.8 # Red Blood Count 3.04 L Hemoglobin 9.6 L Hematocrit 27.7 L Mean Corpuscular 91.1 Volume Mean Corpuscular 31.6 Hemoglobin Mean Corpuscular 34.7 Hemoglobin Concent Red Cell 11.6 Distribution Width Platelet Count 264 Mean Platelet Volume 9.1 Immature 0.300 Granulocytes % Neutrophils % 66.8 Lymphocytes % 19.7 Monocytes % 9.2 Eosinophils % 3.7 Basophils % 0.3 Nucleated Red Blood 0.0 Cells % Immature 0.020 Granulocytes # Neutrophils # 3.8 Lymphocytes # 1.1 Monocytes # 0.5 Eosinophils # 0.2 Basophils # 0.0 Nucleated Red Blood 0.0 Cells # Sodium Level 137 Potassium Level 4.7 Chloride Level 106 Carbon Dioxide Level 20 L Anion Gap 11 Blood Urea Nitrogen 63 H Creatinine 4.76 #H Est Glomerular 9 L Filtrat Rate mL/min Glucose Level 117 # Calcium Level 8.9 Phosphorus Level 8.1 H Magnesium Level 2.1 Test 12/26/18 11:54 Bedside Glucose 196 Medications Medications Current Medications Acetaminophen (Tylenol Tab) 650 mg Q6H PRN PO MILD PAIN LEVEL 1-3 Last administered on 12/23/18 20:49; Admin Dose 650 MG; Start 12/22/18 at 10:00 Aspirin (Halfprin) 81 mg DAILY PO Last administered on 12/26/18 08:47; Admin Dose 81 MG; Start 12/23/18 at 09:00 Atorvastatin Calcium (Lipitor) 80 mg QHS PO Last administered on 12/25/18 21:24; Admin Dose 80 MG; Start 12/22/18 at 21:00 Cholecalciferol (Vitamin D) 1,000 unit DAILY PO Last administered on 12/26/18 08:46; Admin Dose 1,000 UNIT; Start 12/23/18 at 09:00 Docusate Sodium (Colace) 100 mg DAILY PRN PO CONSTIPATION; Start 12/22/18 at 10:00 Isosorbide Dinitrate (Isordil) 30 mg DAILY PO Last administered on 12/26/18 08:47; Admin Dose 30 MG; Start 12/23/18 at 09:00 Metoprolol Tartrate (Lopressor) 50 mg BID PO Last administered on 12/26/18 08:48; Admin Dose 50 MG; Start 12/22/18 at 21:00 Multivitamins Therapeutic (Theragran) 1 tab DAILY PO Last administered on 12/26/18 08:48; Admin Dose 1 TAB; Start 12/23/18 at 09:00 Pantoprazole (Protonix Tab) 40 mg DAILY PO Last administered on 12/26/18 08:46; Admin Dose 40 MG; Start 12/23/18 at 09:00 Polyethylene Glycol (Miralax) 17 gm DAILY PO Last administered on 12/26/18 08:48; Admin Dose 17 GM; Start 12/23/18 at 09:00 Acetaminophen/ Hydrocodone Bitart ([place] (5/325)) 1 tab Q6H PRN PO PAIN LEVEL 7-10 Last administered on 12/26/18 09:16; Admin Dose 1 TAB; Start 12/22/18 at 10:30 Insulin Aspart (Novolog Insulin Pen) NOVOLOG *MILD* ALGORITHM WITH MEALS BEDTIME SC Last administered on 12/25/18 17:54; Admin Dose 1 UNIT; Start 12/22/18 at 18:00 Insulin Glargine (Lantus) 20 units QHS SC Last administered on 12/24/18 20:58; Admin Dose 20 UNITS; Start 12/23/18 at 21:00; Status Hold Insulin Glargine (Lantus) 20 units QAM SC Last administered on 12/24/18 08:33; Admin Dose 20 UNITS; Start 12/24/18 at 09:00; Status Hold Lidocaine (Lidoderm) 1 patch DAILY TD Last administered on 12/26/18 08:51; Admin Dose 1 PATCH; Start 12/24/18 at 09:00 Heparin Sodium (Porcine) (Heparin (5000 Units/1ml)) 5,000 unit BID SC Last administered on 12/26/18 09:34; Admin Dose 5,000 UNIT; Start 12/23/18 at 21:00 Nitroglycerin (Nitroglycerin 2% Oint) 1 inch Q6 PRN TD SBP>170 Last administered on 12/25/18 21:44; Admin Dose 1 INCH; Start 12/24/18 at 01:30 Hydralazine HCl (Apresoline) 25 mg Q6 PRN PO SBP >160 Last administered on 12/24/18 03:20; Admin Dose 25 MG; Start 12/24/18 at 01:30 Ondansetron HCl (Zofran Inj) 1 mg Q6H PRN IV NAUSEA AND/OR VOMITING Last administered on 12/24/18 19:40; Admin Dose 1 MG; Start 12/24/18 at 02:30 Ertapenem 0.5 gm/ Sodium Chloride 100 ml @ 200 mls/hr Q24H IVPB Last administered on 12/25/18at 17:11; Admin Dose 200 MLS/HR; Start 12/24/18 at 17:00 Amlodipine Besylate (Norvasc) 10 mg DAILY PO Last administered on 12/26/18at 09:16; Admin Dose 10 MG; Start 12/26/18 at 09:00 OSCAR OLSON Dec 26, 2018 12:16
--- NOTE | 2018-12-26 15:00 | CONS ---
Assessment/Plan Assessment/Plan Hospital Course (Demo Recall) No acute changes overnight. Patient is alert looks comfortable complaining of poor appetite, no fevers overnight Urine culture grew E. coli ESBL. Allergies: Tetracycline Antimicrobials: Invanz Indwelling: Mccall Physical examination: Obese well-developed elderly woman who is in no distress. Head atraumatic normocephalic neck is supple chest rise symmetrical breath sounds clear. Heart: S1-S2. Abdomen soft bowel sounds present. Assessment: 1. S/p sepsis, present on admission 2. E. coli ESBL UTI 3. Morbid obesity 4. Diabetes 5. 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 Acute renal failure==> refusing dialysis Plan: Remains stable, continue antibiotics, nephrology recommendations Consultation Date/Type/Reason Admit Date/Time Dec 22, 2018 at 06:52 Initial Consult Date Type of Consult id Requesting Provider: MAIDA DOZIER DO Date/Time of Note DATE: 12/26/18 TIME: 14:59 Exam/Review of Systems Exam Vitals Vital Signs Date Temp Pulse Resp B/P (MAP) Pulse Ox O2 O2 Flow FiO2 Time Delivery Rate 12/26/18 98.5 58 20 156/69 96 12:40 (98) 12/25/18 Room Air 16:13 12/22/18 2 07:04 Intake and Output 12/25/18 12/25/18 12/26/18 1515:00 23:00 07:00 IntakeIntake Total 1050 ml 300 ml OutputOutput Total 2500 ml BalanceBalance 1050 ml -2200 ml Results Result Diagram: 12/26/18 0728 12/26/18 0728 Results 24hrs Laboratory Tests Test 12/25/18 17:43 12/25/18 21:21 12/26/18 07:28 12/26/18 08:42 Bedside Glucose 143 117 130 White Blood Count 5.8 # Red Blood Count 3.04 L Hemoglobin 9.6 L Hematocrit 27.7 L Mean Corpuscular 91.1 Volume Mean Corpuscular 31.6 Hemoglobin Mean Corpuscular 34.7 Hemoglobin Concent Red Cell 11.6 Distribution Width Platelet Count 264 Mean Platelet Volume 9.1 Immature 0.300 Granulocytes % Neutrophils % 66.8 Lymphocytes % 19.7 Monocytes % 9.2 Eosinophils % 3.7 Basophils % 0.3 Nucleated Red Blood 0.0 Cells % Immature 0.020 Granulocytes # Neutrophils # 3.8 Lymphocytes # 1.1 Monocytes # 0.5 Eosinophils # 0.2 Basophils # 0.0 Nucleated Red Blood 0.0 Cells # Sodium Level 137 Potassium Level 4.7 Chloride Level 106 Carbon Dioxide Level 20 L Anion Gap 11 Blood Urea Nitrogen 63 H Creatinine 4.76 #H Est Glomerular 9 L Filtrat Rate mL/min Glucose Level 117 # Calcium Level 8.9 Phosphorus Level 8.1 H Magnesium Level 2.1 Test 12/26/18 11:54 Bedside Glucose 196 Medications Medication Current Medications Acetaminophen (Tylenol Tab) 650 mg Q6H PRN PO MILD PAIN LEVEL 1-3 Last administered on 12/23/18 20:49; Admin Dose 650 MG; Start 12/22/18 at 10:00 Aspirin (Halfprin) 81 mg DAILY PO Last administered on 12/26/18 08:47; Admin Dose 81 MG; Start 12/23/18 at 09:00 Atorvastatin Calcium (Lipitor) 80 mg QHS PO Last administered on 12/25/18 21:24; Admin Dose 80 MG; Start 12/22/18 at 21:00 Cholecalciferol (Vitamin D) 1,000 unit DAILY PO Last administered on 12/26/18 08:46; Admin Dose 1,000 UNIT; Start 12/23/18 at 09:00 Docusate Sodium (Colace) 100 mg DAILY PRN PO CONSTIPATION; Start 12/22/18 at 10:00 Isosorbide Dinitrate (Isordil) 30 mg DAILY PO Last administered on 12/26/18 08:47; Admin Dose 30 MG; Start 12/23/18 at 09:00 Metoprolol Tartrate (Lopressor) 50 mg BID PO Last administered on 12/26/18 08:48; Admin Dose 50 MG; Start 12/22/18 at 21:00 Multivitamins Therapeutic (Theragran) 1 tab DAILY PO Last administered on 12/26/18 08:48; Admin Dose 1 TAB; Start 12/23/18 at 09:00 Pantoprazole (Protonix Tab) 40 mg DAILY PO Last administered on 12/26/18 08:46; Admin Dose 40 MG; Start 12/23/18 at 09:00 Polyethylene Glycol (Miralax) 17 gm DAILY PO Last administered on 12/26/18 08:48; Admin Dose 17 GM; Start 12/23/18 at 09:00 Acetaminophen/ Hydrocodone Bitart ([place] (5/325)) 1 tab Q6H PRN PO PAIN LEVEL 7-10 Last administered on 12/26/18 09:16; Admin Dose 1 TAB; Start 12/22/18 at 10:30 Insulin Aspart (Novolog Insulin Pen) NOVOLOG *MILD* ALGORITHM WITH MEALS BEDTIME SC Last administered on 12/26/18 12:42; Admin Dose 2 UNIT; Start 12/22/18 at 18:00 Insulin Glargine (Lantus) 20 units QHS SC Last administered on 12/24/18 20:58; Admin Dose 20 UNITS; Start 12/23/18 at 21:00; Status Hold Insulin Glargine (Lantus) 20 units QAM SC Last administered on 12/24/18 08:33; Admin Dose 20 UNITS; Start 12/24/18 at 09:00; Status Hold Lidocaine (Lidoderm) 1 patch DAILY TD Last administered on 12/26/18 08:51; Admin Dose 1 PATCH; Start 12/24/18 at 09:00 Heparin Sodium (Porcine) (Heparin (5000 Units/1ml)) 5,000 unit BID SC Last administered on 12/26/18 09:34; Admin Dose 5,000 UNIT; Start 12/23/18 at 21:00 Nitroglycerin (Nitroglycerin 2% Oint) 1 inch Q6 PRN TD SBP>170 Last administered on 12/25/18 21:44; Admin Dose 1 INCH; Start 12/24/18 at 01:30 Hydralazine HCl (Apresoline) 25 mg Q6 PRN PO SBP >160 Last administered on 12/24/18 03:20; Admin Dose 25 MG; Start 12/24/18 at 01:30 Ondansetron HCl (Zofran Inj) 1 mg Q6H PRN IV NAUSEA AND/OR VOMITING Last administered on 12/24/18 19:40; Admin Dose 1 MG; Start 12/24/18 at 02:30 Ertapenem 0.5 gm/ Sodium Chloride 100 ml @ 200 mls/hr Q24H IVPB Last administered on 12/25/18 17:11; Admin Dose 200 MLS/HR; Start 12/24/18 at 17:00 Amlodipine Besylate (Norvasc) 10 mg DAILY PO Last administered on 12/26/18at 09:16; Admin Dose 10 MG; Start 12/26/18 at 09:00 JASON GLOVER NP Dec 26, 2018 15:00
[2018-12-26] MEDS: ERTAPENEM SODIUM 0.5 GM in SOD CHLORIDE 0.9% 100 ML IVPB SCH (18:18)
--- NOTE | 2018-12-26 19:46 | CONS ---
Consult Date/Type/Reason Admit Date/Time Dec 22, 2018 at 06:52 Initial Consult Date 12/24/18 Type of Consultation: Urology Reason for Consultation Urinary tract infection Requesting Provider: MAIDA DOZIER DO Date/Time of Note DATE: 12/26/18 TIME: 19:44 Subjective Patient is feeling comfortable, she denies any severe pain. Objective Vitals Vital Signs Date Temp Pulse Resp B/P (MAP) Pulse Ox O2 O2 Flow FiO2 Time Delivery Rate 12/26/18 61 16:08 12/26/18 98.3 20 180/72 97 15:24 (108) 12/25/18 Room Air 16:13 12/22/18 2 07:04 Intake and Output 12/25/18 12/25/18 12/26/18 1515:00 23:00 07:00 IntakeIntake Total 1050 ml 300 ml OutputOutput Total 2500 ml BalanceBalance 1050 ml -2200 ml Exam Mccall catheter is draining clear urine. Results/Medications Result Diagram: 12/26/18 0728 12/26/18 0728 Results 24 hrs Laboratory Tests Test 12/25/18 21:21 12/26/18 07:28 12/26/18 08:42 12/26/18 11:54 Bedside Glucose 117 130 196 White Blood Count 5.8 # Red Blood Count 3.04 L Hemoglobin 9.6 L Hematocrit 27.7 L Mean Corpuscular 91.1 Volume Mean Corpuscular 31.6 Hemoglobin Mean Corpuscular 34.7 Hemoglobin Concent Red Cell 11.6 Distribution Width Platelet Count 264 Mean Platelet Volume 9.1 Immature 0.300 Granulocytes % Neutrophils % 66.8 Lymphocytes % 19.7 Monocytes % 9.2 Eosinophils % 3.7 Basophils % 0.3 Nucleated Red Blood 0.0 Cells % Immature 0.020 Granulocytes # Neutrophils # 3.8 Lymphocytes # 1.1 Monocytes # 0.5 Eosinophils # 0.2 Basophils # 0.0 Nucleated Red Blood 0.0 Cells # Sodium Level 137 Potassium Level 4.7 Chloride Level 106 Carbon Dioxide Level 20 L Anion Gap 11 Blood Urea Nitrogen 63 H Creatinine 4.76 #H Est Glomerular 9 L Filtrat Rate mL/min Glucose Level 117 # Calcium Level 8.9 Phosphorus Level 8.1 H Magnesium Level 2.1 Test 12/26/18 18:20 Bedside Glucose 212 Home Meds Reported Medications Insulin Lispro (Humalog Kwikpen U-100) 100 Unit/1 Ml Insuln.pen, 0 SQ AC MEALS AND BEDTIME, EA 12/22/18 Cholecalciferol* (Vitamin D3*) 1,000 Unit Tablet, 1000 UNIT PO DAILY, TAB 12/22/18 Acetaminophen* (Acetaminophen*) 650 Mg Tablet, 650 MG PO Q6H PRN for MILD PAIN LEVEL 1-3, #30 TAB AND FEVER 12/22/18 Pantoprazole* (Protonix*) 40 Mg Tablet.dr, 40 MG PO DAILY, TAB 12/22/18 Multivitamin* (Daily Value*) 1 Each Tablet, 1 TAB PO DAILY, TAB 12/22/18 Polyethylene Glycol* (Miralax*) 17 Gm Powd.pack, 17 GM PO DAILY, #30 PACKET 12/22/18 Amlodipine Besylate* (Norvasc*) 5 Mg Tablet, 5 MG PO DAILY, TAB HOLD FOR SBP<110 OR HR <60 12/22/18 Aspirin (Low Dose Aspirin) 81 Mg Tablet.dr, 81 MG PO DAILY, #30 TAB 12/22/18 Atorvastatin* (Atorvastatin*) 80 Mg Tablet, 80 MG PO QHS, #30 TAB 12/22/18 Docusate Sodium* (Colace*) 100 Mg Capsule, 100 MG PO DAILY PRN for CONSTIPATION, #30 CAP 12/22/18 Ibuprofen* (Motrin*) 400 Mg Tab, 400 MG PO Q6H PRN for PAIN LEVEL 4-6, TAB 12/22/18 Insulin Detemir (Levemir Flextouch) 100 Unit/1 Ml Insuln.pen, 32 UNIT SQ QHS, EA 12/22/18 Insulin Detemir (Levemir Flextouch) 100 Unit/1 Ml Insuln.pen, 35 UNIT SQ QAM, EA 12/22/18 Isosorbide Dinitrate* (Isosorbide Dinitrate*) 30 Mg Tablet, 30 MG PO DAILY, TAB HOLD FOR SBP <110 OR HR<60 12/22/18 Metoprolol Tartrate* (Lopressor*) 50 Mg Tab, 50 MG PO BID, #60 TAB HOLD IF SBP <110 OR HR <60 GIVE WITH FOOD 12/22/18 Acetaminophen with Codeine (Acetaminophen-Cod #3 Tablet) 1 Each Tablet, 1 TAB PO Q6H PRN for SEVERE PAIN LEVEL 7-10, #7 TAB 12/22/18 Discontinued Reported Medications Insulin Regular, Human (Humulin R) 100 Unit/1 Ml Vial, 0-15 UNIT IJ AC MEALS, VIAL 10/23/17 Tetrahydrozoline Hcl* (Visine*) 0.05% - 15 Ml Drops, 2 DROP LEFT EYE BID PRN for RED EYES, #1 EA 10/23/17 Pregabalin* (Lyrica*) 25 Mg Capsule, 25 MG PO BID, CAP 10/23/17 Pantoprazole* (Pantoprazole*) 40 Mg Tablet.dr, 40 MG PO AC BREAKFAST, TAB 10/23/17 Multivitamins* (Theragran*) 1 Tab Tab, 1 TAB PO DAILY, TAB 10/23/17 Loratadine* (Loratadine*) 10 Mg Tablet, 10 MG PO DAILY, #30 TAB 10/23/17 Lactobacillus Acidophilus* (Lactinex*) 1 Tab Chew, 2 TAB PO BID, TAB 10/23/17 Hydrocodone/Acetaminophen ([place] 5-325 Tablet) 1 Each Tablet, 1 EACH PO Q6 PRN for SEVERE PAIN LEVEL 7-10, TAB 10/23/17 Gentamicin Sulfate* (Gentamicin Sulfate* Ophth) 0.3% - 5 Ml Drops, 1 DROP BOTH EYES Q4, EA 10/23/17 Felodipine* (Felodipine*) 10 Mg Tab.sr.24h, 10 MG PO DAILY, TAB.SA 10/23/17 Docusate Sodium* (Docusate Sodium*) 100 Mg Capsule, 100 MG PO QHS, #30 CAP 10/23/17 Cholecalciferol* (Vitamin D3*) 1,000 Unit Tablet, 1000 UNIT PO DAILY, TAB 10/23/17 Bisacodyl* (Bisacodyl*) 10 Mg Supp, 10 MG ME Q24H PRN for CONSTIPATION, SUPP 10/23/17 Aspirin* (Aspirin* Chew) 81 Mg Tab.chew, 81 MG PO DAILY, TAB.CHEW 10/23/17 Acetaminophen* (Acetaminophen*) 650 Mg Tablet, 650 MG PO Q6H PRN for PAIN AND OR ELEVATED TEMP, #30 TAB 10/23/17 Medications Current Medications Acetaminophen (Tylenol Tab) 650 mg Q6H PRN PO MILD PAIN LEVEL 1-3 Last ad ministered on 12/23/18at 20:49; Admin Dose 650 MG; Start 12/22/18 at 10:00 Aspirin (Halfprin) 81 mg DAILY PO Last administered on 12/26/18 08:47; Admin Dose 81 MG; Start 12/23/18 at 09:00 Atorvastatin Calcium (Lipitor) 80 mg QHS PO Last administered on 12/25/18 21:24; Admin Dose 80 MG; Start 12/22/18 at 21:00 Cholecalciferol (Vitamin D) 1,000 unit DAILY PO Last administered on 12/26/18 08:46; Admin Dose 1,000 UNIT; Start 12/23/18 at 09:00 Docusate Sodium (Colace) 100 mg DAILY PRN PO CONSTIPATION; Start 12/22/18 at 10:00 Isosorbide Dinitrate (Isordil) 30 mg DAILY PO Last administered on 12/26/18 08:47; Admin Dose 30 MG; Start 12/23/18 at 09:00 Metoprolol Tartrate (Lopressor) 50 mg BID PO Last administered on 12/26/18 08:48; Admin Dose 50 MG; Start 12/22/18 at 21:00 Multivitamins Therapeutic (Theragran) 1 tab DAILY PO Last administered on 12/26/18 08:48; Admin Dose 1 TAB; Start 12/23/18 at 09:00 Pantoprazole (Protonix Tab) 40 mg DAILY PO Last administered on 12/26/18 08:46; Admin Dose 40 MG; Start 12/23/18 at 09:00 Polyethylene Glycol (Miralax) 17 gm DAILY PO Last administered on 12/26/18 08:48; Admin Dose 17 GM; Start 12/23/18 at 09:00 Acetaminophen/ Hydrocodone Bitart ([place] (5/325)) 1 tab Q6H PRN PO PAIN LEVEL 7-10 Last administered on 12/26/18 09:16; Admin Dose 1 TAB; Start 12/22/18 at 10:30 Insulin Aspart (Novolog Insulin Pen) NOVOLOG *MILD* ALGORITHM WITH MEALS BEDTIME SC Last administered on 12/26/18 19:40; Admin Dose 2 UNIT; Start 12/22/18 at 18:00 Insulin Glargine (Lantus) 20 units QHS SC Last administered on 12/24/18 20:58; Admin Dose 20 UNITS; Start 12/23/18 at 21:00; Status Hold Insulin Glargine (Lantus) 20 units QAM SC Last administered on 12/24/18 08:33; Admin Dose 20 UNITS; Start 12/24/18 at 09:00; Status Hold Lidocaine (Lidoderm) 1 patch DAILY TD Last administered on 12/26/18 08:51; Admin Dose 1 PATCH; Start 12/24/18 at 09:00 Heparin Sodium (Porcine) (Heparin (5000 Units/1ml)) 5,000 unit BID SC Last administered on 12/26/18 09:34; Admin Dose 5,000 UNIT; Start 12/23/18 at 21:00 Nitroglycerin (Nitroglycerin 2% Oint) 1 inch Q6 PRN TD SBP>170 Last administered on 12/25/18 21:44; Admin Dose 1 INCH; Start 12/24/18 at 01:30 Hydralazine HCl (Apresoline) 25 mg Q6 PRN PO SBP >160 Last administered on 12/24/18 03:20; Admin Dose 25 MG; Start 12/24/18 at 01:30 Ondansetron HCl (Zofran Inj) 1 mg Q6H PRN IV NAUSEA AND/OR VOMITING Last administered on 12/24/18 19:40; Admin Dose 1 MG; Start 12/24/18 at 02:30 Ertapenem 0.5 gm/ Sodium Chloride 100 ml @ 200 mls/hr Q24H IVPB Last administered on 12/26/18 18:18; Admin Dose 200 MLS/HR; Start 12/24/18 at 17:00 Amlodipine Besylate (Norvasc) 10 mg DAILY PO Last administered on 12/26/18 09:16; Admin Dose 10 MG; Start 12/26/18 at 09:00 Assessment/Plan Hospital Course (Demo Recall) 68-year-old female, with a past medical history cerebrovascular accident with left-sided hemiplegia, history of hypertension, history of GERD, history of diab etes, diabetic neuropathy, history of coronary artery disease, presented to [facility] Emergency Room from skilled nurse facility after she was noted to have deviated tongue, lethargy and dysarthria. Her creatinine was 1.99 and it did go up to 4.92. She had a renal ultrasound and that showed mild right hydronephrosis. A urological consultation was therefore requested. Patient denies any prior history of kidney stones. She did have cholecystectomy and appendectomy and tubal ligation. She has been a resident of the [facility] facility for at least 2 years and that is because of her stroke. She states that she does urinate on her own and did not need an indwelling catheter before. On the examination there is no flank tenderness. She does have urinary tract infection with E. coli ESBL. CT scan of the abdomen and pelvis without IV contrast showed: 1. No renal calculi are seen. 2. Borderline mild right-sided hydronephrosis is again seen with parenchymal heterogeneity of both kidneys, more severe on the right. Pyelonephritis is a likely consideration. 3. There is presumed residual contrast enhancement of the kidneys from the CT cerebral angiogram dated December 22, 2018 concerning for renal failure. 4. Mild bladder wall thickening is present despite the nondistended state. Cystitis is a likely consideration. 5. Small pulmonary nodules are seen measuring up to 0.4 cm in size. Correlation with other priors is suggested if available. This may not warrant additional followup if the patient has no risk factors per the Fleischner society guidelines. If the patient has risk factors a followup chest CT is suggested in 12 months. 6. Clinical and laboratory correlation is suggested for signs of infection. Consider follow-up MRI of the kidneys if there is concern for other infiltrative process. The mild right hydronephrosis that she has and the appearance of the bladder may be explained by her UTI with ESBL. There are no stones or obstruction. JACQUELINE MAURER MD Dec 26, 2018 19:46
[2018-12-26] MEDS: ATORVASTATIN 80 MG TAB PO SCH (20:15)
[2018-12-26] MEDS: NITROGLYCERIN 2% 1 GM OINT PKT TD PRN (20:19)
[2018-12-27] VITALS (10 sets, daily range): BP systolic 126–157; BP diastolic 64–73; PULSE 60–88; RESP 18–22
[2018-12-27] MEDS: POLYETHYLENE GLYCOL 17 GM PACKET PO SCH (08:30)
[2018-12-27] MEDS: CHOLECALCIFEROL 1,000 UNIT TAB PO SCH (08:32)
[2018-12-27] MEDS: LIDOCAINE 5% PATCH TD SCH (08:32)
[2018-12-27] MEDS: ISOSORBIDE DINITRATE 10 MG TAB PO SCH (08:33)
[2018-12-27] MEDS: MULTIVITAMINS THERAPEUTIC TAB PO SCH (08:33)
[2018-12-27] MEDS: PANTOPRAZOLE (EC) 40 MG TAB PO SCH (08:33)
[2018-12-27] MEDS: ASPIRIN (EC) 81 MG TAB PO SCH (08:34)
[2018-12-27] MEDS: AMLODIPINE 10 MG TAB PO SCH (08:34)
[2018-12-27] MEDS: METOPROLOL 50 MG TAB PO SCH ×2 (08:34→20:13)
[2018-12-27] MEDS: INSULIN ASPART [NOVOLOG] 3 ML PEN SC SCH ×4 (09:28→21:31)
[2018-12-27] MEDS: HEPARIN 5,000 UNIT/1 ML VIAL SC SCH ×2 (09:28→21:32)
--- NOTE | 2018-12-27 09:57 | PN ---
DATE: 12/27/2018 SUBJECTIVE: The patient is stable. Urinary output has been adequate. The patient's blood pressure is fluctuating. No other events noted. OBJECTIVE: VITAL SIGNS: Blood pressure is 141/64, respiration 18, pulse 63, temperature 98.0. HEENT: Head is normocephalic. NECK: Supple. HEART: Regular rate. LUNGS: Show diminished breath sounds at the base. ABDOMEN: Soft, nontender to palpation without rebound or guarding. EXTREMITIES: Negative for clubbing, cyanosis, no edema. DERMATOLOGIC: No rashes. MUSCULOSKELETAL: The patient has less tenderness to palpation in right upper ribs. No joint effusio n. DERMATOLOGY: No rashes. NEUROLOGIC: No change in exam. MEDICATIONS: The patient's medications have been reviewed. LABORATORY DATA: The laboratory data from 12/27/2018 is pending. ASSESSMENT AND PLAN: 1. Nonoliguric acute kidney injury, stage III with previous baseline creatinine around 1.0 mg/dL. E tiology of acute kidney injury is secondary to acute tubular necrosis due to contrast-associated neph ropathy. The patient appears to be entering recovery phase of acute tubular necrosis as renal functi on has been improving. Repeat renal panel pending this morning. The patient still is refusing dialy sis. No immediate need for renal replacement therapy at this time. Will continue to monitor closely . 2. Hyperkalemia secondary to acute kidney injury, improved. Continue to monitor. 3. Transient ischemic attack. Resolved. 4. Right internal carotid stenosis. The patient has been evaluated by vascular surgery, no plans fo r intervention. 5. Sepsis secondary to urinary tract infection. The patient is completing antibiotic course. 6. Mild right hydronephrosis. Continue to monitor. Appreciate urology's evaluation. 7. Hypernatremia secondary to acute kidney injury. Continue to monitor. 8. Metabolic acidosis secondary to acute kidney injury. Continue to monitor. 9. Mineral bone disorder. The patient is hypophosphatemic. Will start patient on phosphate binders . 10. Diabetes. Will resume patient on long-acting Lantus, monitor glucose levels closely. 11. Hypertension. Blood pressure is elevated. IV fluids were discontinued. We will continue curre nt blood pressure regimen, adjust as needed. 12. Dyslipidemia. Continue statin therapy. 13. History of coronary artery disease. Continue medical management. 14. Constipation. Continue current bowel regimen. 15. Gastrointestinal and deep vein thrombosis prophylaxis. Dictated By: MAIDA GARCIA/CALISTA Conf#: [id number] DID#: [id number] CC: JACQUELINE MAURER MD;*EndCC*
[2018-12-27] MEDS: HYDROCODONE/APAP (5/325) TAB PO PRN ×2 (10:06→22:41)
[2018-12-27] MEDS: ACCU-CHEK XX SCH ×3 (11:59→21:35)
--- NOTE | 2018-12-27 12:00 | CONS ---
Assessment/Plan Assessment/Plan Hospital Course (Demo Recall) Acute on chronic renal failure: baseline 1.8. Worsened from contrast nephropathy, now improving Right carotid 95% stenosis:She was evaluated by neurology and vascular surgery and thought not to be a candidate for intervention as she already had dense disease of the affected side without acute stroke. UTI CAD s/p PCI LAD 10/2017 HTN h/o CVA with left hemiparesis -continue ASA -lipitor 80mg -metoprolol 50mg BID -isordil 30mg -amlodipine 10mg -antibiotics Consultation Date/Type/Reason Admit Date/Time Dec 22, 2018 at 06:52 Initial Consult Date 12/25/18 Type of Consult Cardiology Requesting Provider: MAIDA DOZIER DO Date/Time of Note DATE: 12/27/18 TIME: 11:59 24 HR Interval Summary Free Text/Dictation Cr continues to improve. No events Exam/Review of Systems Vital Signs Vitals Vital Signs Date Temp Pulse Resp B/P (MAP) Pulse Ox O2 O2 Flow FiO2 Time Delivery Rate 12/27/18 98.8 88 22 133/66 99 Room Air 11:14 (88) Intake and Output 12/26/18 12/26/18 12/27/18 1515:00 23:00 07:00 IntakeIntake Total 500 ml 1000 ml OutputOutput Total 1600 ml 1500 ml BalanceBalance 500 ml -600 ml -1500 ml Exam Constitutional: alert, oriented Psych: no complaints, nl mood/affect Head: normocephalic, atraumatic Neck: supple; No jvd Respiratory: clear to auscultation; No crackles/rales Cardiovascular: regular rate and rhythm; No edema, No systolic murmur Gastrointestinal: soft, non-tender; No distended Neurological: nl mental status, nl speech Labs Result Diagram: 12/27/18 0741 12/27/18 0741 Results 24hrs Laboratory Tests Test 12/26/18 18:20 12/26/18 20:12 12/27/18 01:52 12/27/18 07:41 Bedside Glucose 212 250 H 227 H White Blood Count 5.2 Red Blood Count 2.80 L Hemoglobin 9.0 L Hematocrit 26.0 L Mean Corpuscular 92.9 Volume Mean Corpuscular 32.1 Hemoglobin Mean Corpuscular 34.6 Hemoglobin Concent Red Cell 11.8 Distribution Width Platelet Count 250 Mean Platelet Volume 9.1 Immature 0.400 Granulocytes % Neutrophils % 61.6 Lymphocytes % 22.6 Monocytes % 9.4 Eosinophils % 5.4 Basophils % 0.6 Nucleated Red Blood 0.0 Cells % Immature 0.020 Granulocytes # Neutrophils # 3.2 Lymphocytes # 1.2 Monocytes # 0.5 Eosinophils # 0.3 Basophils # 0.0 Nucleated Red Blood 0.0 Cells # Sodium Level 141 Potassium Level 4.9 Chloride Level 110 Carbon Dioxide Level 22 Anion Gap 9 Blood Urea Nitrogen 52 H Creatinine 4.06 H Est Glomerular 11 L Filtrat Rate mL/min Glucose Level 232 #H Calcium Level 8.9 Phosphorus Level 6.3 H Magnesium Level 2.1 Test 12/27/18 08:11 Bedside Glucose 261 H Medications Medications Current Medications Acetaminophen (Tylenol Tab) 650 mg Q6H PRN PO MILD PAIN LEVEL 1-3 Last administered on 12/23/18 20:49; Admin Dose 650 MG; Start 12/22/18 at 10:00 Aspirin (Halfprin) 81 mg DAILY PO Last administered on 12/27/18 08:34; Admin Dose 81 MG; Start 12/23/18 at 09:00 Atorvastatin Calcium (Lipitor) 80 mg QHS PO Last administered on 12/26/18 20:15; Admin Dose 80 MG; Start 12/22/18 at 21:00 Cholecalciferol (Vitamin D) 1,000 unit DAILY PO Last administered on 12/27/18 08:32; Admin Dose 1,000 UNIT; Start 12/23/18 at 09:00 Docusate Sodium (Colace) 100 mg DAILY PRN PO CONSTIPATION; Start 12/22/18 at 10:00 Isosorbide Dinitrate (Isordil) 30 mg DAILY PO Last administered on 12/27/18 08:33; Admin Dose 30 MG; Start 12/23/18 at 09:00 Metoprolol Tartrate (Lopressor) 50 mg BID PO Last administered on 12/27/18 08:34; Admin Dose 50 MG; Start 12/22/18 at 21:00 Multivitamins Therapeutic (Theragran) 1 tab DAILY PO Last administered on 12/27/18 08:33; Admin Dose 1 TAB; Start 12/23/18 at 09:00 Pantoprazole (Protonix Tab) 40 mg DAILY PO Last administered on 12/27/18 08:33; Admin Dose 40 MG; Start 12/23/18 at 09:00 Polyethylene Glycol (Miralax) 17 gm DAILY PO Last administered on 12/27/18 08:30; Admin Dose 17 GM; Start 12/23/18 at 09:00 Acetaminophen/ Hydrocodone Bitart ([place] (5/325)) 1 tab Q6H PRN PO PAIN LEVEL 7-10 Last administered on 12/27/18 10:06; Admin Dose 1 TAB; Start 12/22/18 at 10:30 Insulin Aspart (Novolog Insulin Pen) NOVOLOG *MILD* ALGORITHM WITH MEALS BEDTIME SC Last administered on 12/27/18 09:28; Admin Dose 4 UNIT; Start 12/22/18 at 18:00 Insulin Glargine (Lantus) 20 units QHS SC Last administered on 12/24/18 20:58; Admin Dose 20 UNITS; Start 12/23/18 at 21:00; Status Hold Lidocaine (Lidoderm) 1 patch DAILY TD Last administered on 12/27/18 08:32; Admin Dose 1 PATCH; Start 12/24/18 at 09:00 Heparin Sodium (Porcine) (Heparin (5000 Units/1ml)) 5,000 unit BID SC Last administered on 12/27/18 09:28; Admin Dose 5,000 UNIT; Start 12/23/18 at 21:00 Nitroglycerin (Nitroglycerin 2% Oint) 1 inch Q6 PRN TD SBP>170 Last administered on 12/26/18 20:19; Admin Dose 1 INCH; Start 12/24/18 at 01:30 Hydralazine HCl (Apresoline) 25 mg Q6 PRN PO SBP >160 Last administered on 12/24/18 03:20; Admin Dose 25 MG; Start 12/24/18 at 01:30 Ondansetron HCl (Zofran Inj) 1 mg Q6H PRN IV NAUSEA AND/OR VOMITING Last administered on 12/24/18 19:40; Admin Dose 1 MG; Start 12/24/18 at 02:30 Ertapenem 0.5 gm/ Sodium Chloride 100 ml @ 200 mls/hr Q24H IVPB Last administ ered on 12/26/18 18:18; Admin Dose 200 MLS/HR; Start 12/24/18 at 17:00 Amlodipine Besylate (Norvasc) 10 mg DAILY PO Last administered on 12/27/18at 08:34; Admin Dose 10 MG; Start 12/26/18 at 09:00 Insulin Glargine (Lantus) 10 units QAM SC ; Start 12/28/18 at 09:00 Linagliptin (Tradjenta) 5 mg DAILY PO ; Start 12/28/18 at 09:00 Diagnostic Test (Pha) (Accu-Chek) 1 ea AC MEALS AND BEDTIME XX ; Start 12/27/18 at 11:20 OSCAR OLSON Dec 27, 2018 12:00
--- NOTE | 2018-12-27 12:47 | CONS ---
Consult Date/Type/Reason Admit Date/Time Dec 22, 2018 at 06:52 Initial Consult Date 12/24/18 Type of Consultation: Urology Reason for Consultation Mild right hydronephrosis and urinary tract infection Requesting Provider: MAIDA DOZIER DO Date/Time of Note DATE: 12/27/18 TIME: 12:44 Subjective She denies any pain, has an indwelling Mccall catheter. Objective Vitals Vital Signs Date Temp Pulse Resp B/P (MAP) Pulse Ox O2 O2 Flow FiO2 Time Delivery Rate 12/27/18 98.8 88 22 133/66 99 Room Air 11:14 (88) Intake and Output 12/26/18 12/26/18 12/27/18 1414:59 22:59 06:59 IntakeIntake Total 500 ml 1000 ml OutputOutput Total 1600 ml 1500 ml BalanceBalance 500 ml -600 ml -1500 ml Exam Mccall catheter is draining clear urine. Results/Medications Result Diagram: 12/27/18 0741 12/27/18 0741 Results 24 hrs Laboratory Tests Test 12/26/18 18:20 12/26/18 20:12 12/27/18 01:52 12/27/18 07:41 Bedside Glucose 212 250 H 227 H White Blood Count 5.2 Red Blood Count 2.80 L Hemoglobin 9.0 L Hematocrit 26.0 L Mean Corpuscular 92.9 Volume Mean Corpuscular 32.1 Hemoglobin Mean Corpuscular 34.6 Hemoglobin Concent Red Cell 11.8 Distribution Width Platelet Count 250 Mean Platelet Volume 9.1 Immature 0.400 Granulocytes % Neutrophils % 61.6 Lymphocytes % 22.6 Monocytes % 9.4 Eosinophils % 5.4 Basophils % 0.6 Nucleated Red Blood 0.0 Cells % Immature 0.020 Granulocytes # Neutrophils # 3.2 Lymphocytes # 1.2 Monocytes # 0.5 Eosinophils # 0.3 Basophils # 0.0 Nucleated Red Blood 0.0 Cells # Sodium Level 141 Potassium Level 4.9 Chloride Level 110 Carbon Dioxide Level 22 Anion Gap 9 Blood Urea Nitrogen 52 H Creatinine 4.06 H Est Glomerular 11 L Filtrat Rate mL/min Glucose Level 232 #H Calcium Level 8.9 Phosphorus Level 6.3 H Magnesium Level 2.1 Test 12/27/18 08:11 12/27/18 11:58 Bedside Glucose 261 H 228 H Home Meds Reported Medications Insulin Lispro (Humalog Kwikpen U-100) 100 Unit/1 Ml Insuln.pen, 0 SQ AC MEALS AND BEDTIME, EA 12/22/18 Cholecalciferol* (Vitamin D3*) 1,000 Unit Tablet, 1000 UNIT PO DAILY, TAB 12/22/18 Acetaminophen* (Acetaminophen*) 650 Mg Tablet, 650 MG PO Q6H PRN for MILD PAIN LEVEL 1-3, #30 TAB AND FEVER 12/22/18 Pantoprazole* (Protonix*) 40 Mg Tablet.dr, 40 MG PO DAILY, TAB 12/22/18 Multivitamin* (Daily Value*) 1 Each Tablet, 1 TAB PO DAILY, TAB 12/22/18 Polyethylene Glycol* (Miralax*) 17 Gm Powd.pack, 17 GM PO DAILY, #30 PACKET 12/22/18 Amlodipine Besylate* (Norvasc*) 5 Mg Tablet, 5 MG PO DAILY, TAB HOLD FOR SBP<110 OR HR <60 12/22/18 Aspirin (Low Dose Aspirin) 81 Mg Tablet.dr, 81 MG PO DAILY, #30 TAB 12/22/18 Atorvastatin* (Atorvastatin*) 80 Mg Tablet, 80 MG PO QHS, #30 TAB 12/22/18 Docusate Sodium* (Colace*) 100 Mg Capsule, 100 MG PO DAILY PRN for CONSTIPATION, #30 CAP 12/22/18 Ibuprofen* (Motrin*) 400 Mg Tab, 400 MG PO Q6H PRN for PAIN LEVEL 4-6, TAB 12/22/18 Insulin Detemir (Levemir Flextouch) 100 Unit/1 Ml Insuln.pen, 32 UNIT SQ QHS, EA 12/22/18 Insulin Detemir (Levemir Flextouch) 100 Unit/1 Ml Insuln.pen, 35 UNIT SQ QAM, EA 12/22/18 Isosorbide Dinitrate* (Isosorbide Dinitrate*) 30 Mg Tablet, 30 MG PO DAILY, TAB HOLD FOR SBP <110 OR HR<60 12/22/18 Metoprolol Tartrate* (Lopressor*) 50 Mg Tab, 50 MG PO BID, #60 TAB HOLD IF SBP <110 OR HR <60 GIVE WITH FOOD 12/22/18 Acetaminophen with Codeine (Acetaminophen-Cod #3 Tablet) 1 Each Tablet, 1 TAB PO Q6H PRN for SEVERE PAIN LEVEL 7-10, #7 TAB 12/22/18 Discontinued Reported Medications Insulin Regular, Human (Humulin R) 100 Unit/1 Ml Vial, 0-15 UNIT IJ AC MEALS, VIAL 10/23/17 Tetrahydrozoline Hcl* (Visine*) 0.05% - 15 Ml Drops, 2 DROP LEFT EYE BID PRN for RED EYES, #1 EA 10/23/17 Pregabalin* (Lyrica*) 25 Mg Capsule, 25 MG PO BID, CAP 10/23/17 Pantoprazole* (Pantoprazole*) 40 Mg Tablet.dr, 40 MG PO AC BREAKFAST, TAB 10/23/17 Multivitamins* (Theragran*) 1 Tab Tab, 1 TAB PO DAILY, TAB 10/23/17 Loratadine* (Loratadine*) 10 Mg Tablet, 10 MG PO DAILY, #30 TAB 10/23/17 Lactobacillus Acidophilus* (Lactinex*) 1 Tab Chew, 2 TAB PO BID, TAB 10/23/17 Hydrocodone/Acetaminophen ([place] 5-325 Tablet) 1 Each Tablet, 1 EACH PO Q6 PRN for SEVERE PAIN LEVEL 7-10, TAB 10/23/17 Gentamicin Sulfate* (Gentamicin Sulfate* Ophth) 0.3% - 5 Ml Drops, 1 DROP BOTH EYES Q4, EA 10/23/17 Felodipine* (Felodipine*) 10 Mg Tab.sr.24h, 10 MG PO DAILY, TAB.SA 10/23/17 Docusate Sodium* (Docusate Sodium*) 100 Mg Capsule, 100 MG PO QHS, #30 CAP 10/23/17 Cholecalciferol* (Vitamin D3*) 1,000 Unit Tablet, 1000 UNIT PO DAILY, TAB 10/23/17 Bisacodyl* (Bisacodyl*) 10 Mg Supp, 10 MG PA Q24H PRN for CONSTIPATION, SUPP 10/23/17 Aspirin* (Aspirin* Chew) 81 Mg Tab.chew, 81 MG PO DAILY, TAB.CHEW 10/23/17 Acetaminophen* (Acetaminophen*) 650 Mg Tablet, 650 MG PO Q6H PRN for PAIN AND OR ELEVATED TEMP, #30 TAB 10/23/17 Medications Current Medications Acetaminophen (Tylenol Tab) 650 mg Q6H PRN PO MILD PAIN LEVEL 1-3 Last administered on 12/23/18at 20:49; Admin Dose 650 MG; Start 12/22/18 at 10:00 Aspirin (Halfprin) 81 mg DAILY PO Last administered on 12/27/18 08:34; Admin Dose 81 MG; Start 12/23/18 at 09:00 Atorvastatin Calcium (Lipitor) 80 mg QHS PO Last administered on 12/26/18 20:15; Admin Dose 80 MG; Start 12/22/18 at 21:00 Cholecalciferol (Vitamin D) 1,000 unit DAILY PO Last administered on 12/27/18 08:32; Admin Dose 1,000 UNIT; Start 12/23/18 at 09:00 Docusate Sodium (Colace) 100 mg DAILY PRN PO CONSTIPATION; Start 12/22/18 at 10:00 Isosorbide Dinitrate (Isordil) 30 mg DAILY PO Last administered on 12/27/18 08:33; Admin Dose 30 MG; Start 12/23/18 at 09:00 Metoprolol Tartrate (Lopressor) 50 mg BID PO Last administered on 12/27/18 08:34; Admin Dose 50 MG; Start 12/22/18 at 21:00 Multivitamins Therapeutic (Theragran) 1 tab DAILY PO Last administered on 12/27/18 08:33; Admin Dose 1 TAB; Start 12/23/18 at 09:00 Pantoprazole (Protonix Tab) 40 mg DAILY PO Last administered on 12/27/18 08:33; Admin Dose 40 MG; Start 12/23/18 at 09:00 Polyethylene Glycol (Miralax) 17 gm DAILY PO Last administered on 12/27/18 08:30; Admin Dose 17 GM; Start 12/23/18 at 09:00 Acetaminophen/ Hydrocodone Bitart ([place] (5/325)) 1 tab Q6H PRN PO PAIN LEVEL 7-10 Last administered on 12/27/18 10:06; Admin Dose 1 TAB; Start 12/22/18 at 10:30 Insulin Aspart (Novolog Insulin Pen) NOVOLOG *MILD* ALGORITHM WITH MEALS BEDTIME SC Last administered on 12/27/18 12:01; Admin Dose 3 UNIT; Start 12/22/18 at 18:00 Insulin Glargine (Lantus) 20 units QHS SC Last administered on 12/24/18 20:58; Admin Dose 20 UNITS; Start 12/23/18 at 21:00; Status Hold Lidocaine (Lidoderm) 1 patch DAILY TD Last administered on 12/27/18 08:32; Admin Dose 1 PATCH; Start 12/24/18 at 09:00 Heparin Sodium (Porcine) (Heparin (5000 Units/1ml)) 5,000 unit BID SC Last administered on 12/27/18 09:28; Admin Dose 5,000 UNIT; Start 12/23/18 at 21:00 Nitroglycerin (Nitroglycerin 2% Oint) 1 inch Q6 PRN TD SBP>170 Last administered on 12/26/18 20:19; Admin Dose 1 INCH; Start 12/24/18 at 01:30 Hydralazine HCl (Apresoline) 25 mg Q6 PRN PO SBP >160 Last administered on 12/24/18 03:20; Admin Dose 25 MG; Start 12/24/18 at 01:30 Ondansetron HCl (Zofran Inj) 1 mg Q6H PRN IV NAUSEA AND/OR VOMITING Last administered on 12/24/18 19:40; Admin Dose 1 MG; Start 12/24/18 at 02:30 Ertapenem 0.5 gm/ Sodium Chloride 100 ml @ 200 mls/hr Q24H IVPB Last administered on 12/26/18 18:18; Admin Dose 200 MLS/HR; Start 12/24/18 at 17:00 Amlodipine Besylate (Norvasc) 10 mg DAILY PO Last administered on 12/27/18 08:34; Admin Dose 10 MG; Start 12/26/18 at 09:00 Insulin Glargine (Lantus) 10 units QAM SC ; Start 12/28/18 at 09:00 Linagliptin (Tradjenta) 5 mg DAILY PO ; Start 12/28/18 at 09:00 Diagnostic Test (Pha) (Accu-Chek) 1 ea AC MEALS AND BEDTIME XX Last administered on 12/27/18at 11:59; Admin Dose 1 EA; Start 12/27/18 at 11:20 Assessment/Plan Hospital Course (Demo Recall) 68-year-old female, with a past medical history cerebrovascular accident with left-sided hemiplegia, history of hypertension, history of GERD, history of diabetes, diabetic neuropathy, history of coronary artery disease, presented to [facility] Emergency Room from [facility] facility after she was noted to have deviated tongue, lethargy and dysarthria. Her creatinine was 1.99 and it did go up to 4.92. She had a renal ultrasound and that showed mild right hydronephrosis. A urological consultation was therefore requested. Patient denies any prior history of kidney stones. She did have cholecystectomy and appendectomy and tubal ligation. She has been a resident of the residential facility for at least 2 years and that is because of her stroke. She states that she does urinate on her own and did not need an indwelling catheter before. On the examination there is no flank tenderness. She does have urinary tract infection with E. coli ESBL. CT scan of the abdomen and pelvis without IV contrast showed: 1. No renal calculi are seen. 2. Borderline mild right-sided hydronephrosis is again seen with parenchymal heterogeneity of both kidneys, more severe on the right. Pyelonephritis is a likely consideration. 3. There is presumed residual contrast enhancement of the kidneys from the CT cerebral angiogram dated December 22, 2018 concerning for renal failure. 4. Mild bladder wall thickening is present despite the nondistended state. Cystitis is a likely consideration. 5. Small pulmonary nodules are seen measuring up to 0.4 cm in size. Correlation with other priors is suggested if available. This may not warrant additional followup if the patient has no risk factors per the Fleischner society guidel nain. If the patient has risk factors a followup chest CT is suggested in 12 months. 6. Clinical and laboratory correlation is suggested for signs of infection. Consider follow-up MRI of the kidneys if there is concern for other infiltrative process. The mild right hydronephrosis that she has and the appearance of the bladder may be explained by her UTI with ESBL. There are no stones or obstruction. Continue the treatment of her infection with the ertapenem. JACQUELINE MAURER MD Dec 27, 2018 12:47
[2018-12-27] MEDS: ERTAPENEM SODIUM 0.5 GM in SOD CHLORIDE 0.9% 100 ML IVPB SCH (17:35)
--- NOTE | 2018-12-27 17:54 | CONS ---
Assessment/Plan Assessment/Plan Hospital Course (Demo Recall) ID PROGRESS NOTE CURRENT ABX=Day # => ERTAPENEM 24H INTERVAL SUMMARY * Calm, resting comfortable, no fevers, VSS, NAD, FC in place MICRO * 12/22/18 BCX (-) * 12/22/18 URINE CULTURE Final Organism 1 ESCHERICHIA COLI (ESBL) COLONY COUNT >100,000 CFU/ml . MULTI DRUG RESISTANT ORGANISM ECOLI ESBL ECOLI ESBL M.I.C. RX M.I.C. RX --------- --- --------- --- AMIKACIN 8 S AMPICILLIN >=32 R CEFAZOLIN R CEFEPIME 8 S CEFOTAXIME R CIPROFLOXACIN >=4 R GENTAMICIN >=16 R LEVOFLOXACIN >=8 R MEROPENEM 0.023 S NITROFURANTOIN <=16 S TOBRAMYCIN >=16 R TRIMETHOPRIM/SULFAMETHOXAZOLE <=20 S PIPERACILLIN/TAZOBACTAM 8 S PHYSICAL EXAMINATION: GENERAL:VSS, NAD HEENT: Unremarkable NECK: Supple, trachea midline. CHEST: Rise symmetrical, without dyspnea on observation HEART: Pulse RRR ABDOMEN: Soft, ND EXTREMITIES: Warm, moves all extremities ID ASSESSMENT 68 yo F admit with: 1. S/p sepsis, present on admission 2. E. coli ESBL UTI 3. Morbid obesity 4. Diabetes 5. Encephalopathy, neurology on case = IMPROVED 6. Acute renal failure==> refusing dialysis INVASIVES: Mccall ABX ALLERGY: TETRACYCLINE CURRENT ABX: => > ERTAPENEM ID RECOMMENDATIONS 1. Anticipate 10 days ABX for MDRO . Consultation Date/Type/Reason Admit Date/Time Dec 22, 2018 at 06:52 Initial Consult Date 12/25/18 Requesting Provider: MAIDA DOZIER DO Date/Time of Note DATE: 12/27/18 TIME: 17:54 Exam/Review of Systems Exam Vitals Vital Signs Date Temp Pulse Resp B/P (MAP) Pulse Ox O2 O2 Flow FiO2 Time Delivery Rate 12/27/18 64 16:00 12/27/18 98.0 18 157/73 97 Room Air 15:33 (101) Intake and Output 12/26/18 12/26/18 12/27/18 1515:00 23:00 07:00 IntakeIntake Total 500 ml 1000 ml OutputOutput Total 1600 ml 1500 ml BalanceBalance 500 ml -600 ml -1500 ml Results Result Diagram: 12/27/18 0741 12/27/18 0741 Results 24hrs Laboratory Tests Test 12/26/18 18:20 12/26/18 20:12 12/27/18 01:52 12/27/18 07:41 Bedside Glucose 212 250 H 227 H White Blood Count 5.2 Red Blood Count 2.80 L Hemoglobin 9.0 L Hematocrit 26.0 L Mean Corpuscular 92.9 Volume Mean Corpuscular 32.1 Hemoglobin Mean Corpuscular 34.6 Hemoglobin Concent Red Cell 11.8 Distribution Width Platelet Count 250 Mean Platelet Volume 9.1 Immature 0.400 Granulocytes % Neutrophils % 61.6 Lymphocytes % 22.6 Monocytes % 9.4 Eosinophils % 5.4 Basophils % 0.6 Nucleated Red Blood 0.0 Cells % Immature 0.020 Granulocytes # Neutrophils # 3.2 Lymphocytes # 1.2 Monocytes # 0.5 Eosinophils # 0.3 Basophils # 0.0 Nucleated Red Blood 0.0 Cells # Sodium Level 141 Potassium Level 4.9 Chloride Level 110 Carbon Dioxide Level 22 Anion Gap 9 Blood Urea Nitrogen 52 H Creatinine 4.06 H Est Glomerular 11 L Filtrat Rate mL/min Glucose Level 232 #H Calcium Level 8.9 Phosphorus Level 6.3 H Magnesium Level 2.1 Test 12/27/18 08:11 12/27/18 11:58 12/27/18 17:39 Bedside Glucose 261 H 228 H 235 H Medications Medication Current Medications Acetaminophen (Tylenol Tab) 650 mg Q6H PRN PO MILD PAIN LEVEL 1-3 Last administered on 12/23/18at 20:49; Admin Dose 650 MG; Start 12/22/18 at 10:00 Aspirin (Halfprin) 81 mg DAILY PO Last administered on 12/27/18at 08:34; Admin Dose 81 MG; Start 12/23/18 at 09:00 Atorvastatin Calcium (Lipitor) 80 mg QHS PO Last administered on 12/26/18at 20:15; Admin Dose 80 MG; Start 12/22/18 at 21:00 Cholecalciferol (Vitamin D) 1,000 unit DAILY PO Last administered on 12/27/18 08:32; Admin Dose 1,000 UNIT; Start 12/23/18 at 09:00 Docusate Sodium (Colace) 100 mg DAILY PRN PO CONSTIPATION; Start 12/22/18 at 10:00 Isosorbide Dinitrate (Isordil) 30 mg DAILY PO Last administered on 12/27/18 08:33; Admin Dose 30 MG; Start 12/23/18 at 09:00 Metoprolol Tartrate (Lopressor) 50 mg BID PO Last administered on 12/27/18 08:34; Admin Dose 50 MG; Start 12/22/18 at 21:00 Multivitamins Therapeutic (Theragran) 1 tab DAILY PO Last administered on 12/27/18 08:33; Admin Dose 1 TAB; Start 12/23/18 at 09:00 Pantoprazole (Protonix Tab) 40 mg DAILY PO Last administered on 12/27/18 08:33; Admin Dose 40 MG; Start 12/23/18 at 09:00 Polyethylene Glycol (Miralax) 17 gm DAILY PO Last administered on 12/27/18 08:30; Admin Dose 17 GM; Start 12/23/18 at 09:00 Acetaminophen/ Hydrocodone Bitart ([place] (5/325)) 1 tab Q6H PRN PO PAIN LEVEL 7-10 Last administered on 12/27/18 10:06; Admin Dose 1 TAB; Start 12/22/18 at 10:30 Insulin Aspart (Novolog Insulin Pen) NOVOLOG *MILD* ALGORITHM WITH MEALS BEDTIME SC Last administered on 12/27/18 12:01; Admin Dose 3 UNIT; Start 12/22/18 at 18:00 Insulin Glargine (Lantus) 20 units QHS SC Last administered on 12/24/18 20:58; Admin Dose 20 UNITS; Start 12/23/18 at 21:00; Status Hold Lidocaine (Lidoderm) 1 patch DAILY TD Last administered on 12/27/18 08:32; Admin Dose 1 PATCH; Start 12/24/18 at 09:00 Heparin Sodium (Porcine) (Heparin (5000 Units/1ml)) 5,000 unit BID SC Last administered on 12/27/18 09:28; Admin Dose 5,000 UNIT; Start 12/23/18 at 21:00 Nitroglycerin (Nitroglycerin 2% Oint) 1 inch Q6 PRN TD SBP>170 Last administered on 12/26/18 20:19; Admin Dose 1 INCH; Start 12/24/18 at 01:30 Hydralazine HCl (Apresoline) 25 mg Q6 PRN PO SBP >160 Last administered on 12/24/18 03:20; Admin Dose 25 MG; Start 12/24/18 at 01:30 Ondansetron HCl (Zofran Inj) 1 mg Q6H PRN IV NAUSEA AND/OR VOMITING Last administered on 12/24/18 19:40; Admin Dose 1 MG; Start 12/24/18 at 02:30 Ertapenem 0.5 gm/ Sodium Chloride 100 ml @ 200 mls/hr Q24H IVPB Last administered on 12/26/18 18:18; Admin Dose 200 MLS/HR; Start 12/24/18 at 17:00 Amlodipine Besylate (Norvasc) 10 mg DAILY PO Last administered on 12/27/18 08:34; Admin Dose 10 MG; Start 12/26/18 at 09:00 Insulin Glargine (Lantus) 10 units QAM SC ; Start 12/28/18 at 09:00 Linagliptin (Tradjenta) 5 mg DAILY PO ; Start 12/28/18 at 09:00 Diagnostic Test (Pha) (Accu-Chek) 1 ea AC MEALS AND BEDTIME XX Last administered on 12/27/18at 17:34; Admin Dose 1 EA; Start 12/27/18 at 11:20 JUSTICE JAY NP Dec 27, 2018 17:54
[2018-12-27] MEDS: ATORVASTATIN 80 MG TAB PO SCH ×2 (20:13→21:00)
[2018-12-28] VITALS (9 sets, daily range): BP systolic 127–178; BP diastolic 54–77; PULSE 53–64; RESP 18–20
[2018-12-28] MEDS: ACCU-CHEK XX SCH ×4 (07:38→21:00)
[2018-12-28] MEDS: INSULIN ASPART [NOVOLOG] 3 ML PEN SC SCH ×4 (07:47→20:53)
[2018-12-28] MEDS: LINAGLIPTIN 5 MG TABLET PO SCH (08:23)
[2018-12-28] MEDS: MULTIVITAMINS THERAPEUTIC TAB PO SCH (08:23)
[2018-12-28] MEDS: LIDOCAINE 5% PATCH TD SCH (08:24)
[2018-12-28] MEDS: HYDROCODONE/APAP (5/325) TAB PO PRN ×2 (08:24→20:14)
[2018-12-28] MEDS: PANTOPRAZOLE (EC) 40 MG TAB PO SCH (08:25)
[2018-12-28] MEDS: AMLODIPINE 10 MG TAB PO SCH (08:25)
[2018-12-28] MEDS: POLYETHYLENE GLYCOL 17 GM PACKET PO SCH (08:25)
[2018-12-28] MEDS: METOPROLOL 50 MG TAB PO SCH ×2 (08:25→20:11)
[2018-12-28] MEDS: ISOSORBIDE DINITRATE 10 MG TAB PO SCH (08:25)
[2018-12-28] MEDS: ASPIRIN (EC) 81 MG TAB PO SCH (08:25)
[2018-12-28] MEDS: CHOLECALCIFEROL 1,000 UNIT TAB PO SCH (08:27)
[2018-12-28] MEDS: HEPARIN 5,000 UNIT/1 ML VIAL SC SCH ×2 (08:37→20:52)
--- NOTE | 2018-12-28 08:42 | PN ---
DATE: 12/28/2018 SUBJECTIVE: The patient is stable, no events overnight. The patient's blood pressure has been fluct uating. Urinary output has improved. The patient is requesting to go home. OBJECTIVE: VITAL SIGNS: Blood pressure is 178/77, respirations 20, pulse 63, temperature 98.3. HEENT: Head is normocephalic. NECK: Supple. HEART: Regular rate. LUNGS: Show diminished breath sounds at the base. ABDOMEN: Soft, nontender to palpation. No rebound or guarding. EXTREMITIES: Negative for clubbing, cyanosis, no edema. DERMATOLOGIC: No rashes. MUSCULOSKELETAL: No joint effusion. NEUROLOGIC: No change in exam. MEDICATIONS: Reviewed. LABORATORY DATA: Has been reviewed. ASSESSMENT AND PLAN: 1. Nonoliguric acute kidney injury, stage III with previous baseline creatinine around 1.8 mg/dL. E tiology of acute kidney injury was secondary to acute tubular necrosis due to contrast-associated nep hropathy. The patient is currently in recovery phase of acute tubular necrosis. We will continue to monitor. Continue current treatment plan, supportive care, renally dose all meds. 2. Hyperkalemia, resolved. 3. Transient ischemic attack. Resolved. 4. Right internal carotid artery stenosis. The patient is with vascular surgery, no plans for intervention. 5. Sepsis secondary to urinary tract infection. Continue current antibiotic regimen. 6. Mild hydronephrosis. Continue to monitor. Appreciate urology's evaluation. 7. Metabolic acidosis secondary to acute kidney injury, resolving. 8. Mineral bone disorder, monitor calcium and phosphorus levels. 9. Hypernatremia, improved. 10. Diabetes. We will adjust insulin regimen as patient remains hyperglycemic. 11. Hypertension. Continue current blood pressure regimen, adjust as needed. 12. Dyslipidemia. Continue statin therapy. 13. History of coronary artery disease. 14. Constipation. Continue current bowel regimen. 15. Right flank pain, improved. 16. Gastrointestinal and deep vein thrombosis prophylaxis. Dictated By: MAIDA GARCIA/CALISTA Conf#: [id number] DID#: [id number]
[2018-12-28] MEDS ORDERED: INSULIN GLARGINE [LANTus] (100 UNITS/ML) SYG SC SCH ×3 (09:00→21:00)
[2018-12-28] MEDS: INSULIN GLARGINE [LANTus] (100 UNITS/ML) SYG SC SCH (10:02)
--- NOTE | 2018-12-28 10:55 | CONS ---
Assessment/Plan Assessment/Plan Hospital Course (Demo Recall) ID PROGRESS NOTE CURRENT ABX=Day # => ERTAPENEM 24H INTERVAL SUMMARY * Afebrile so far today -- TMax yesterday 99.4, Calm, resting comfortable, no fevers, VSS, NAD, FC in place MICRO * 12/22/18 BCX (-) * 12/22/18 URINE CULTURE Final Organism 1 ESCHERICHIA COLI (ESBL) COLONY COUNT >100,000 CFU/ml . MULTI DRUG RESISTANT ORGANISM ECOLI ESBL ECOLI ESBL M.I.C. RX M.I.C. RX --------- --- --------- --- AMIKACIN 8 S AMPICILLIN >=32 R CEFAZOLIN R CEFEPIME 8 S CEFOTAXIME R CIPROFLOXACIN >=4 R GENTAMICIN >=16 R LEVOFLOXACIN >=8 R MEROPENEM 0.023 S NITROFURANTOIN <=16 S TOBRAMYCIN >=16 R TRIMETHOPRIM/SULFAMETHOXAZOLE <=20 S PIPERACILLIN/TAZOBACTAM 8 S PHYSICAL EXAMINATION: GENERAL:VSS, NAD HEENT: Unremarkable NECK: Supple, trachea midline. CHEST: Rise symmetrical, without dyspnea on observation HEART: Pulse RRR ABDOMEN: Soft, ND EXTREMITIES: Warm, moves all extremities ID ASSESSMENT 68 yo F admit with: 1. S/p sepsis, present on admission 2. E. coli ESBL UTI 3. Morbid obesity 4. Diabetes 5. Encephalopathy, neurology on case = IMPROVED 6. Acute renal failure==> refusing dialysis INVASIVES: [facility] ABX ALLERGY: TETRACYCLINE CURRENT ABX: => > ERTAPENEM ID RECOMMENDATIONS 1. Anticipate 10 days ABX for MDRO . Consultation Date/Type/Reason Admit Date/Time Dec 22, 2018 at 06:52 Initial Consult Date 12/25/18 Requesting Provider: MAIDA DOZIER DO Date/Time of Note DATE: 12/28/18 TIME: 10:54 Exam/Review of Systems Exam Vitals Vital Signs Date Temp Pulse Resp B/P (MAP) Pulse Ox O2 O2 Flow FiO2 Time Delivery Rate 12/28/18 64 08:00 12/28/18 98.3 20 178/77 98 07:51 (110) 12/27/18 Room Air 15:33 Intake and Output 12/27/18 12/27/18 12/28/18 1515:00 23:00 07:00 IntakeIntake Total 1150 ml OutputOutput Total 800 ml BalanceBalance 350 ml Results Result Diagram: 12/28/18 0618 12/28/18 0618 Results 24hrs Laboratory Tests Test 12/27/18 11:58 12/27/18 17:39 12/27/18 20:09 12/28/18 04:21 Bedside Glucose 228 H 235 H 233 H 217 Test 12/28/18 06:18 12/28/18 07:40 12/28/18 09:51 White Blood Count 6.4 # Red Blood Count 3.18 L Hemoglobin 9.9 L Hematocrit 29.4 L Mean Corpuscular 92.5 Volume Mean Corpuscular 31.1 Hemoglobin Mean Corpuscular 33.7 Hemoglobin Concent Red Cell 11.7 Distribution Width Platelet Count 303 # Mean Platelet Volume 8.9 Immature 0.800 H Granulocytes % Neutrophils % 58.4 Lymphocytes % 26.3 Monocytes % 9.3 Eosinophils % 4.6 Basophils % 0.6 Nucleated Red Blood 0.0 Cells % Immature 0.050 H Granulocytes # Neutrophils # 3.7 Lymphocytes # 1.7 Monocytes # 0.6 Eosinophils # 0.3 Basophils # 0.0 Nucleated Red Blood 0.0 Cells # Sodium Level 141 Potassium Level 4.8 Chloride Level 110 Carbon Dioxide Level 22 Anion Gap 9 Blood Urea Nitrogen 43 H Creatinine 3.22 H Est Glomerular 14 L Filtrat Rate mL/min Glucose Level 208 Calcium Level 9.7 Phosphorus Level 5.1 H Magnesium Level 2.0 Bedside Glucose 197 281 H Medications Medication Current Medications Acetaminophen (Tylenol Tab) 650 mg Q6H PRN PO MILD PAIN LEVEL 1-3 Last administered on 12/23/18at 20:49; Admin Dose 650 MG; Start 12/22/18 at 10:00 Aspirin (Halfprin) 81 mg DAILY PO Last administered on 12/28/18 08:25; Admin Dose 81 MG; Start 12/23/18 at 09:00 Atorvastatin Calcium (Lipitor) 80 mg QHS PO Last administered on 12/26/18at 20:15; Admin Dose 80 MG; Start 12/22/18 at 21:00 Cholecalciferol (Vitamin D) 1,000 unit DAILY PO Last administered on 12/28/18 08:27; Admin Dose 1,000 UNIT; Start 12/23/18 at 09:00 Docusate Sodium (Colace) 100 mg DAILY PRN PO CONSTIPATION; Start 12/22/18 at 10:00 Isosorbide Dinitrate (Isordil) 30 mg DAILY PO Last administered on 12/28/18 08:25; Admin Dose 30 MG; Start 12/23/18 at 09:00 Metoprolol Tartrate (Lopressor) 50 mg BID PO Last administered on 12/28/18 08 :25; Admin Dose 50 MG; Start 12/22/18 at 21:00 Multivitamins Therapeutic (Theragran) 1 tab DAILY PO Last administered on 12/28/18 08:23; Admin Dose 1 TAB; Start 12/23/18 at 09:00 Pantoprazole (Protonix Tab) 40 mg DAILY PO Last administered on 12/28/18 08:25; Admin Dose 40 MG; Start 12/23/18 at 09:00 Polyethylene Glycol (Miralax) 17 gm DAILY PO Last administered on 12/28/18 08:25; Admin Dose 17 GM; Start 12/23/18 at 09:00 Acetaminophen/ Hydrocodone Bitart ([place] (5/325)) 1 tab Q6H PRN PO PAIN LEVEL 7-10 Last administered on 12/28/18 08:24; Admin Dose 1 TAB; Start 12/22/18 at 10:30 Insulin Aspart (Novolog Insulin Pen) NOVOLOG *MILD* ALGORITHM WITH MEALS BEDTIME SC Last administered on 12/28/18 07:47; Admin Dose 2 UNIT; Start 12/22/18 at 18:00 Lidocaine (Lidoderm) 1 patch DAILY TD Last administered on 12/28/18 08:24; Admin Dose 1 PATCH; Start 12/24/18 at 09:00 Heparin Sodium (Porcine) (Heparin (5000 Units/1ml)) 5,000 unit BID SC Last administered on 12/28/18 08:37; Admin Dose 5,000 UNIT; Start 12/23/18 at 21:00 Nitroglycerin (Nitroglycerin 2% Oint) 1 inch Q6 PRN TD SBP>170 Last administered on 12/26/18 20:19; Admin Dose 1 INCH; Start 12/24/18 at 01:30 Hydralazine HCl (Apresoline) 25 mg Q6 PRN PO SBP >160 Last administered on 12/24/18 03:20; Admin Dose 25 MG; Start 12/24/18 at 01:30 Ondansetron HCl (Zofran Inj) 1 mg Q6H PRN IV NAUSEA AND/OR VOMITING Last admini stered on 12/24/18 19:40; Admin Dose 1 MG; Start 12/24/18 at 02:30 Ertapenem 0.5 gm/ Sodium Chloride 100 ml @ 200 mls/hr Q24H IVPB Last administered on 12/27/18 17:35; Admin Dose 200 MLS/HR; Start 12/24/18 at 17:00 Amlodipine Besylate (Norvasc) 10 mg DAILY PO Last administered on 12/28/18 08:25; Admin Dose 10 MG; Start 12/26/18 at 09:00 Linagliptin (Tradjenta) 5 mg DAILY PO Last administered on 12/28/18 08:23; Admin Dose 5 MG; Start 12/28/18 at 09:00 Diagnostic Test (Pha) (Accu-Chek) 1 ea AC MEALS AND BEDTIME XX Last administered on 12/28/18 07:38; Admin Dose 1 EA; Start 12/27/18 at 11:20 Insulin Glargine (Lantus) 10 units QHS SC ; Start 12/28/18 at 21:00 Insulin Glargine (Lantus) 15 units QAM SC Last administered on 12/28/18at 10:02; Admin Dose 15 UNITS; Start 12/28/18 at 09:00 JUSTICE JAY NP Dec 28, 2018 10:55
--- NOTE | 2018-12-28 11:26 | CONS ---
Assessment/Plan Assessment/Plan Hospital Course (Demo Recall) Acute on chronic renal failure: baseline 1.8. Worsened from contrast nephropathy, now improving Right carotid 95% stenosis:She was evaluated by neurology and vascular surgery and thought not to be a candidate for intervention as she already had dense disease of the affected side without acute stroke. UTI CAD s/p PCI LAD 10/2017 HTN h/o CVA with left hemiparesis -continue ASA -lipitor 80mg -metoprolol 50mg BID -isordil 30mg -amlodipine 10mg -antibiotics -dispo per primary Consultation Date/Type/Reason Admit Date/Time Dec 22, 2018 at 06:52 Initial Consult Date 12/25/18 Type of Consult Cardiology Requesting Provider: MAIDA DOZIER DO Date/Time of Note DATE: 12/28/18 TIME: 11:25 24 HR Interval Summary Free Text/Dictation No events. Cr continues to improve Exam/Review of Systems Vital Signs Vitals Vital Signs Date Temp Pulse Resp B/P (MAP) Pulse Ox O2 O2 Flow FiO2 Time Delivery Rate 12/28/18 64 08:00 12/28/18 98.3 20 178/77 98 07:51 (110) 12/27/18 Room Air 15:33 Intake and Output 12/27/18 12/27/18 12/28/18 1515:00 23:00 07:00 IntakeIntake Total 1150 ml OutputOutput Total 800 ml BalanceBalance 350 ml Exam Constitutional: alert, oriented Psych: no complaints, nl mood/affect Neck: supple; No jvd Respiratory: clear to auscultation; No crackles/rales Cardiovascular: regular rate and rhythm, systolic murmur (2/6 CORTEZ); No edema Gastrointestinal: soft, non-tender Neurological: nl mental status, nl speech Labs Result Diagram: 12/28/1818 12/28/1818 Results 24hrs Laboratory Tests Test 12/27/18 11:58 12/27/18 17:39 12/27/18 20:09 12/28/18 04:21 Bedside Glucose 228 H 235 H 233 H 217 Test 12/28/18 06:18 12/28/18 07:40 12/28/18 09:51 White Blood Count 6.4 # Red Blood Count 3.18 L Hemoglobin 9.9 L Hematocrit 29.4 L Mean Corpuscular 92.5 Volume Mean Corpuscular 31.1 Hemoglobin Mean Corpuscular 33.7 Hemoglobin Concent Red Cell 11.7 Distribution Width Platelet Count 303 # Mean Platelet Volume 8.9 Immature 0.800 H Granulocytes % Neutrophils % 58.4 Lymphocytes % 26.3 Monocytes % 9.3 Eosinophils % 4.6 Basophils % 0.6 Nucleated Red Blood 0.0 Cells % Immature 0.050 H Granulocytes # Neutrophils # 3.7 Lymphocytes # 1.7 Monocytes # 0.6 Eosinophils # 0.3 Basophils # 0.0 Nucleated Red Blood 0.0 Cells # Sodium Level 141 Potassium Level 4.8 Chloride Level 110 Carbon Dioxide Level 22 Anion Gap 9 Blood Urea Nitrogen 43 H Creatinine 3.22 H Est Glomerular 14 L Filtrat Rate mL/min Glucose Level 208 Calcium Level 9.7 Phosphorus Level 5.1 H Magnesium Level 2.0 Bedside Glucose 197 281 H Medications Medications Current Medications Acetaminophen (Tylenol Tab) 650 mg Q6H PRN PO MILD PAIN LEVEL 1-3 Last administered on 12/23/18 20:49; Admin Dose 650 MG; Start 12/22/18 at 10:00 Aspirin (Halfprin) 81 mg DAILY PO Last administered on 12/28/18 08:25; Admin Dose 81 MG; Start 12/23/18 at 09:00 Atorvastatin Calcium (Lipitor) 80 mg QHS PO Last administered on 12/26/18 20:15; Admin Dose 80 MG; Start 12/22/18 at 21:00 Cholecalciferol (Vitamin D) 1,000 unit DAILY PO Last administered on 12/28/18 08:27; Admin Dose 1,000 UNIT; Start 12/23/18 at 09:00 Docusate Sodium (Colace) 100 mg DAILY PRN PO CONSTIPATION; Start 12/22/18 at 10:00 Isosorbide Dinitrate (Isordil) 30 mg DAILY PO Last administered on 12/28/18 08 :25; Admin Dose 30 MG; Start 12/23/18 at 09:00 Metoprolol Tartrate (Lopressor) 50 mg BID PO Last administered on 12/28/18 08:25; Admin Dose 50 MG; Start 12/22/18 at 21:00 Multivitamins Therapeutic (Theragran) 1 tab DAILY PO Last administered on 12/28/18 08:23; Admin Dose 1 TAB; Start 12/23/18 at 09:00 Pantoprazole (Protonix Tab) 40 mg DAILY PO Last administered on 12/28/18 08:25; Admin Dose 40 MG; Start 12/23/18 at 09:00 Polyethylene Glycol (Miralax) 17 gm DAILY PO Last administered on 12/28/18 08:25; Admin Dose 17 GM; Start 12/23/18 at 09:00 Acetaminophen/ Hydrocodone Bitart ([place] (5/325)) 1 tab Q6H PRN PO PAIN LEVEL 7-10 Last administered on 12/28/18 08:24; Admin Dose 1 TAB; Start 12/22/18 at 10:30 Insulin Aspart (Novolog Insulin Pen) NOVOLOG *MILD* ALGORITHM WITH MEALS BEDTI ME SC Last administered on 12/28/18 07:47; Admin Dose 2 UNIT; Start 12/22/18 at 18:00 Lidocaine (Lidoderm) 1 patch DAILY TD Last administered on 12/28/18 08:24; Admin Dose 1 PATCH; Start 12/24/18 at 09:00 Heparin Sodium (Porcine) (Heparin (5000 Units/1ml)) 5,000 unit BID SC Last administered on 12/28/18 08:37; Admin Dose 5,000 UNIT; Start 12/23/18 at 21:00 Nitroglycerin (Nitroglycerin 2% Oint) 1 inch Q6 PRN TD SBP>170 Last administered on 12/26/18 20:19; Admin Dose 1 INCH; Start 12/24/18 at 01:30 Hydralazine HCl (Apresoline) 25 mg Q6 PRN PO SBP >160 Last administered on 12/24/18 03:20; Admin Dose 25 MG; Start 12/24/18 at 01:30 Ondansetron HCl (Zofran Inj) 1 mg Q6H PRN IV NAUSEA AND/OR VOMITING Last administered on 12/24/18 19:40; Admin Dose 1 MG; Start 12/24/18 at 02:30 Ertapenem 0.5 gm/ Sodium Chloride 100 ml @ 200 mls/hr Q24H IVPB Last administered on 12/27/18 17:35; Admin Dose 200 MLS/HR; Start 12/24/18 at 17:00 Amlodipine Besylate (Norvasc) 10 mg DAILY PO Last administered on 12/28/18 08:25; Admin Dose 10 MG; Start 12/26/18 at 09:00 Linagliptin (Tradjenta) 5 mg DAILY PO Last administered on 12/28/18 08:23; Admin Dose 5 MG; Start 12/28/18 at 09:00 Diagnostic Test (Pha) (Accu-Chek) 1 ea AC MEALS AND BEDTIME XX Last administered on 12/28/18at 07:38; Admin Dose 1 EA; Start 12/27/18 at 11:20 Insulin Glargine (Lantus) 10 units QHS SC ; Start 12/28/18 at 21:00 Insulin Glargine (Lantus) 15 units QAM SC Last administered on 12/28/18at 10:02; Admin Dose 15 UNITS; Start 12/28/18 at 09:00 OSCAR OLSON Dec 28, 2018 11:26
[2018-12-28] MEDS: ERTAPENEM SODIUM 0.5 GM in SOD CHLORIDE 0.9% 100 ML IVPB SCH (16:36)
--- NOTE | 2018-12-28 19:50 | CONS ---
Consult Date/Type/Reason Admit Date/Time Dec 22, 2018 at 06:52 Initial Consult Date 12/24/18 Type of Consultation: Urology Reason for Consultation Urinary tract infection and right hydronephrosis Requesting Provider: MAIDA DOZIER DO Date/Time of Note DATE: 12/28/18 TIME: 19:46 Subjective Patient complains of pain in the right side of her abdomen. Objective Vitals Vital Signs Date Temp Pulse Resp B/P (MAP) Pulse Ox O2 O2 Flow FiO2 Time Delivery Rate 12/28/18 57 16:00 12/28/18 98.0 20 149/69 98 15:21 (95) 12/27/18 Room Air 15:33 Intake and Output 12/27/18 12/27/18 12/28/18 1515:00 23:00 07:00 IntakeIntake Total 1150 ml OutputOutput Total 800 ml BalanceBalance 350 ml Exam But the urine is clear and has some sediment in it. Results/Medications Result Diagram: 12/28/1818 12/28/1818 Results 24 hrs Laboratory Tests Test 12/27/18 20:09 12/28/18 04:21 12/28/18 06:18 12/28/18 07:40 Bedside Glucose 233 H 217 197 White Blood Count 6.4 # Red Blood Count 3.18 L Hemoglobin 9.9 L Hematocrit 29.4 L Mean Corpuscular 92.5 Volume Mean Corpuscular 31.1 Hemoglobin Mean Corpuscular 33.7 Hemoglobin Concent Red Cell 11.7 Distribution Width Platelet Count 303 # Mean Platelet Volume 8.9 Immature 0.800 H Granulocytes % Neutrophils % 58.4 Lymphocytes % 26.3 Monocytes % 9.3 Eosinophils % 4.6 Basophils % 0.6 Nucleated Red Blood 0.0 Cells % Immature 0.050 H Granulocytes # Neutrophils # 3.7 Lymphocytes # 1.7 Monocytes # 0.6 Eosinophils # 0.3 Basophils # 0.0 Nucleated Red Blood 0.0 Cells # Sodium Level 141 Potassium Level 4.8 Chloride Level 110 Carbon Dioxide Level 22 Anion Gap 9 Blood Urea Nitrogen 43 H Creatinine 3.22 H Est Glomerular 14 L Filtrat Rate mL/min Glucose Level 208 Calcium Level 9.7 Phosphorus Level 5.1 H Magnesium Level 2.0 Test 12/28/18 09:51 12/28/18 12:20 12/28/18 17:32 Bedside Glucose 281 H 265 H 210 Home Meds Reported Medications Insulin Lispro (Humalog Kwikpen U-100) 100 Unit/1 Ml Insuln.pen, 0 SQ AC MEALS AND BEDTIME, EA 12/22/18 Cholecalciferol* (Vitamin D3*) 1,000 Unit Tablet, 1000 UNIT PO DAILY, TAB 12/22/18 Acetaminophen* (Acetaminophen*) 650 Mg Tablet, 650 MG PO Q6H PRN for MILD PAIN LEVEL 1-3, #30 TAB AND FEVER 12/22/18 Pantoprazole* (Protonix*) 40 Mg Tablet.dr, 40 MG PO DAILY, TAB 12/22/18 Multivitamin* (Daily Value*) 1 Each Tablet, 1 TAB PO DAILY, TAB 12/22/18 Polyethylene Glycol* (Miralax*) 17 Gm Powd.pack, 17 GM PO DAILY, #30 PACKET 12/22/18 Amlodipine Besylate* (Norvasc*) 5 Mg Tablet, 5 MG PO DAILY, TAB HOLD FOR SBP<110 OR HR <60 12/22/18 Aspirin (Low Dose Aspirin) 81 Mg Tablet.dr, 81 MG PO DAILY, #30 TAB 12/22/18 Atorvastatin* (Atorvastatin*) 80 Mg Tablet, 80 MG PO QHS, #30 TAB 12/22/18 Docusate Sodium* (Colace*) 100 Mg Capsule, 100 MG PO DAILY PRN for CONSTIPATION, #30 CAP 12/22/18 Ibuprofen* (Motrin*) 400 Mg Tab, 400 MG PO Q6H PRN for PAIN LEVEL 4-6, TAB 12/22/18 Insulin Detemir (Levemir Flextouch) 100 Unit/1 Ml Insuln.pen, 32 UNIT SQ QHS, EA 12/22/18 Insulin Detemir (Levemir Flextouch) 100 Unit/1 Ml Insuln.pen, 35 UNIT SQ QAM, EA 12/22/18 Isosorbide Dinitrate* (Isosorbide Dinitrate*) 30 Mg Tablet, 30 MG PO DAILY, TAB HOLD FOR SBP <110 OR HR<60 12/22/18 Metoprolol Tartrate* (Lopressor*) 50 Mg Tab, 50 MG PO BID, #60 TAB HOLD IF SBP <110 OR HR <60 GIVE WITH FOOD 12/22/18 Acetaminophen with Codeine (Acetaminophen-Cod #3 Tablet) 1 Each Tablet, 1 TAB PO Q6H PRN for SEVERE PAIN LEVEL 7-10, #7 TAB 12/22/18 Discontinued Reported Medications Insulin Regular, Human (Humulin R) 100 Unit/1 Ml Vial, 0-15 UNIT IJ AC MEALS, VIAL 10/23/17 Tetrahydrozoline Hcl* (Visine*) 0.05% - 15 Ml Drops, 2 DROP LEFT EYE BID PRN for RED EYES, #1 EA 10/23/17 Pregabalin* (Lyrica*) 25 Mg Capsule, 25 MG PO BID, CAP 10/23/17 Pantoprazole* (Pantoprazole*) 40 Mg Tablet.dr, 40 MG PO AC BREAKFAST, TAB 10/23/17 Multivitamins* (Theragran*) 1 Tab Tab, 1 TAB PO DAILY, TAB 10/23/17 Loratadine* (Loratadine*) 10 Mg Tablet, 10 MG PO DAILY, #30 TAB 10/23/17 Lactobacillus Acidophilus* (Lactinex*) 1 Tab Chew, 2 TAB PO BID, TAB 10/23/17 Hydrocodone/Acetaminophen ([place] 5-325 Tablet) 1 Each Tablet, 1 EACH PO Q6 PRN for SEVERE PAIN LEVEL 7-10, TAB 10/23/17 Gentamicin Sulfate* (Gentamicin Sulfate* Ophth) 0.3% - 5 Ml Drops, 1 DROP BOTH EYES Q4, EA 10/23/17 Felodipine* (Felodipine*) 10 Mg Tab.sr.24h, 10 MG PO DAILY, TAB.SA 10/23/17 Docusate Sodium* (Docusate Sodium*) 100 Mg Capsule, 100 MG PO QHS, #30 CAP 10/23/17 Cholecalciferol* (Vitamin D3*) 1,000 Unit Tablet, 1000 UNIT PO DAILY, TAB 10/23/17 Bisacodyl* (Bisacodyl*) 10 Mg Supp, 10 MG [place] Q24H PRN for CONSTIPATION, SUPP 10/23/17 Aspirin* (Aspirin* Chew) 81 Mg Tab.chew, 81 MG PO DAILY, TAB.CHEW 10/23/17 Acetaminophen* (Acetaminophen*) 650 Mg Tablet, 650 MG PO Q6H PRN for PAIN AND OR ELEVATED TEMP, #30 TAB 10/23/17 Medications Current Medications Acetaminophen (Tylenol Tab) 650 mg Q6H PRN PO MILD PAIN LEVEL 1-3 Last administered on 12/23/18 20:49; Admin Dose 650 MG; Start 12/22/18 at 10:00 Aspirin (Halfprin) 81 mg DAILY PO Last administered on 12/28/18 08:25; Admin Dose 81 MG; Start 12/23/18 at 09:00 Atorvastatin Calcium (Lipitor) 80 mg QHS PO Last administered on 12/26/18 20: 15; Admin Dose 80 MG; Start 12/22/18 at 21:00 Cholecalciferol (Vitamin D) 1,000 unit DAILY PO Last administered on 12/28/18 08:27; Admin Dose 1,000 UNIT; Start 12/23/18 at 09:00 Docusate Sodium (Colace) 100 mg DAILY PRN PO CONSTIPATION; Start 12/22/18 at 10:00 Isosorbide Dinitrate (Isordil) 30 mg DAILY PO Last administered on 12/28/18 08:25; Admin Dose 30 MG; Start 12/23/18 at 09:00 Metoprolol Tartrate (Lopressor) 50 mg BID PO Last administered on 12/28/18 08:25; Admin Dose 50 MG; Start 12/22/18 at 21:00 Multivitamins Therapeutic (Theragran) 1 tab DAILY PO Last administered on 12/28/18 08:23; Admin Dose 1 TAB; Start 12/23/18 at 09:00 Pantoprazole (Protonix Tab) 40 mg DAILY PO Last administered on 12/28/18 08:25; Admin Dose 40 MG; Start 12/23/18 at 09:00 Polyethylene Glycol (Miralax) 17 gm DAILY PO Last administered on 12/28/18 08:25; Admin Dose 17 GM; Start 12/23/18 at 09:00 Acetaminophen/ Hydrocodone Bitart ([place] (5/325)) 1 tab Q6H PRN PO PAIN LEVEL 7-10 Last administered on 12/28/18 08:24; Admin Dose 1 TAB; Start 12/22/18 at 10:30 Insulin Aspart (Novolog Insulin Pen) NOVOLOG *MILD* ALGORITHM WITH MEALS BEDTIME SC Last administered on 12/28/18 18:18; Admin Dose 2 UNIT; Start 12/22/18 at 18:00 Lidocaine (Lidoderm) 1 patch DAILY TD Last administered on 4/28/19at 08:24; Admin Dose 1 PATCH; Start 12/24/18 at 09:00 Heparin Sodium (Porcine) (Heparin (5000 Units/1ml)) 5,000 unit BID SC Last administered on 12/28/18 08:37; Admin Dose 5,000 UNIT; Start 12/23/18 at 21:00 Nitroglycerin (Nitroglycerin 2% Oint) 1 inch Q6 PRN TD SBP>170 Last administered on 12/26/18 20:19; Admin Dose 1 INCH; Start 12/24/18 at 01:30 Hydralazine HCl (Apresoline) 25 mg Q6 PRN PO SBP >160 Last administered on 12/24/18 03:20; Admin Dose 25 MG; Start 12/24/18 at 01:30 Ondansetron HCl (Zofran Inj) 1 mg Q6H PRN IV NAUSEA AND/OR VOMITING Last administered on 12/24/18 19:40; Admin Dose 1 MG; Start 12/24/18 at 02:30 Ertapenem 0.5 gm/ Sodium Chloride 100 ml @ 200 mls/hr Q24H IVPB Last administered on 12/28/18 16:36; Admin Dose 200 MLS/HR; Start 12/24/18 at 17:00 Amlodipine Besylate (Norvasc) 10 mg DAILY PO Last administered on 12/28/18 08:25; Admin Dose 10 MG; Start 12/26/18 at 09:00 Linagliptin (Tradjenta) 5 mg DAILY PO Last administered on 12/28/18 08:23; Admin Dose 5 MG; Start 12/28/18 at 09:00 Diagnostic Test (Pha) (Accu-Chek) 1 ea AC MEALS AND BEDTIME XX Last administered on 12/28/18 17:33; Admin Dose 1 EA; Start 12/27/18 at 11:20 Insulin Glargine (Lantus) 10 units QHS SC ; Start 12/28/18 at 21:00 Insulin Glargine (Lantus) 15 units QAM SC Last administered on 12/28/18 10:02; Admin Dose 15 UNITS; Start 12/28/18 at 09:00 Assessment/Plan Hospital Course (Demo Recall) 68-year-old female, with a past medical history cerebrovascular accident with left-sided hemiplegia, history of hypertension, history of GERD, history of diabetes, diabetic neuropathy, history of coronary artery disease, presented to [facility] Emergency Room from [facility] after she was noted to have deviated tongue, lethargy and dysarthria. Her creatinine was 1.99 and it did go up to 4.92. She had a renal ultrasound and that showed mild right hydronephrosis. A urological consultation was therefore requested. Patient denies any prior history of kidney stones. She did have cholecystectomy and appendectomy and tubal ligation. She has been a resident of the longterm [facility] for at least 2 years and that is b ecause of her stroke. She states that she does urinate on her own and did not need an indwelling catheter before. On the examination there is no flank tenderness. She does have urinary tract infection with E. coli ESBL. CT scan of the abdomen and pelvis without IV contrast showed: 1. No renal calculi are seen. 2. Borderline mild right-sided hydronephrosis is again seen with parenchymal heterogeneity of both kidneys, more severe on the right. Pyelonephritis is a likely consideration. 3. There is presumed residual contrast enhancement of the kidneys from the CT cerebral angiogram dated December 22, 2018 concerning for renal failure. 4. Mild bladder wall thickening is present despite the nondistended state. Cystitis is a likely consideration. 5. Small pulmonary nodules are seen measuring up to 0.4 cm in size. Correlation with other priors is suggested if available. This may not warrant additional followup if the patient has no risk factors per the Fleischner society guidelines. If the patient has risk factors a followup chest CT is suggested in 12 months. 6. Clinical and laboratory correlation is suggested for signs of infection. Consider follow-up MRI of the kidneys if there is concern for other infiltrative process. The mild right hydronephrosis that she has and the appearance of the bladder may be explained by her UTI with ESBL. There are no stones or obstruction. The urine is clear and has some sediment on at some time. Continue the treatment of her infection with the ertapenem. JACQUELINE MAURER MD Dec 28, 2018 19:50
[2018-12-28] MEDS: ATORVASTATIN 80 MG TAB PO SCH (20:11)
[2018-12-29] VITALS (9 sets, daily range): BP systolic 124–161; BP diastolic 58–73; PULSE 63–77; RESP 18–20
[2018-12-29] MEDS: ONDANSETRON 4 MG INJ IV PRN ×2 (05:48→12:55)
[2018-12-29] MEDS: ACCU-CHEK XX SCH ×4 (07:40→21:00)
[2018-12-29] MEDS: INSULIN ASPART [NOVOLOG] 3 ML PEN SC SCH ×4 (07:58→21:00)
[2018-12-29] MEDS: INSULIN GLARGINE [LANTus] (100 UNITS/ML) SYG SC SCH ×2 (07:58→09:00)
--- NOTE | 2018-12-29 08:08 | CONS ---
Consult Date/Type/Reason Admit Date/Time Dec 22, 2018 at 06:52 Initial Consult Date 12/24/18 Type of Consultation: Urology Reason for Consultation Urinary tract infection and hydronephrosis Requesting Provider: MAIDA DOZIER DO Date/Time of Note DATE: 12/29/18 TIME: 08:06 Subjective No events overnight. Patient is resting comfortably Objective Vitals Vital Signs Date Temp Pulse Resp B/P (MAP) Pulse Ox O2 O2 Flow FiO2 Time Delivery Rate 12/29/18 99.6 72 18 142/64 94 07:21 (90) 12/27/18 Room Air 15:33 Intake and Output 12/28/18 12/28/18 12/29/18 1515:00 23:00 07:00 IntakeIntake Total 800 ml 1050 ml 300 ml OutputOutput Total 1550 ml 1150 ml 1050 ml BalanceBalance -750 ml -100 ml -750 ml Exam Mccall catheter is draining clear urine. There is no sediment in the tubing today. Results/Medications Result Diagram: 12/28/1818 12/28/1818 Results 24 hrs Laboratory Tests Test 12/28/18 09:51 12/28/18 12:20 12/28/18 17:32 12/28/18 20:09 Bedside Glucose 281 H 265 H 210 193 Test 12/29/18 02:54 12/29/18 07:39 Bedside Glucose 219 273 H Home Meds Reported Medications Insulin Lispro (Humalog Kwikpen U-100) 100 Unit/1 Ml Insuln.pen, 0 SQ AC MEALS AND BEDTIME, EA 12/22/18 Cholecalciferol* (Vitamin D3*) 1,000 Unit Tablet, 1000 UNIT PO DAILY, TAB 12/22/18 Acetaminophen* (Acetaminophen*) 650 Mg Tablet, 650 MG PO Q6H PRN for MILD PAIN LEVEL 1-3, #30 TAB AND FEVER 12/22/18 Pantoprazole* (Protonix*) 40 Mg Tablet.dr, 40 MG PO DAILY, TAB 12/22/18 Multivitamin* (Daily Value*) 1 Each Tablet, 1 TAB PO DAILY, TAB 12/22/18 Polyethylene Glycol* (Miralax*) 17 Gm Powd.pack, 17 GM PO DAILY, #30 PACKET 12/22/18 Amlodipine Besylate* (Norvasc*) 5 Mg Tablet, 5 MG PO DAILY, TAB HOLD FOR SBP<110 OR HR <60 12/22/18 Aspirin (Low Dose Aspirin) 81 Mg Tablet.dr, 81 MG PO DAILY, #30 TAB 12/22/18 Atorvastatin* (Atorvastatin*) 80 Mg Tablet, 80 MG PO QHS, #30 TAB 12/22/18 Docusate Sodium* (Colace*) 100 Mg Capsule, 100 MG PO DAILY PRN for CONSTIPATION, #30 CAP 12/22/18 Ibuprofen* (Motrin*) 400 Mg Tab, 400 MG PO Q6H PRN for PAIN LEVEL 4-6, TAB 12/22/18 Insulin Detemir (Levemir Flextouch) 100 Unit/1 Ml Insuln.pen, 32 UNIT SQ QHS, EA 12/22/18 Insulin Detemir (Levemir Flextouch) 100 Unit/1 Ml Insuln.pen, 35 UNIT SQ QAM, EA 12/22/18 Isosorbide Dinitrate* (Isosorbide Dinitrate*) 30 Mg Tablet, 30 MG PO DAILY, TAB HOLD FOR SBP <110 OR HR<60 12/22/18 Metoprolol Tartrate* (Lopressor*) 50 Mg Tab, 50 MG PO BID, #60 TAB HOLD IF SBP <110 OR HR <60 GIVE WITH FOOD 12/22/18 Acetaminophen with Codeine (Acetaminophen-Cod #3 Tablet) 1 Each Tablet, 1 TAB PO Q6H PRN for SEVERE PAIN LEVEL 7-10, #7 TAB 12/22/18 Discontinued Reported Medications Insulin Regular, Human (Humulin R) 100 Unit/1 Ml Vial, 0-15 UNIT IJ AC MEALS, VIAL 10/23/17 Tetrahydrozoline Hcl* (Visine*) 0.05% - 15 Ml Drops, 2 DROP LEFT EYE BID PRN for RED EYES, #1 EA 10/23/17 Pregabalin* (Lyrica*) 25 Mg Capsule, 25 MG PO BID, CAP 10/23/17 Pantoprazole* (Pantoprazole*) 40 Mg Tablet.dr, 40 MG PO AC BREAKFAST, TAB 10/23/17 Multivitamins* (Theragran*) 1 Tab Tab, 1 TAB PO DAILY, TAB 10/23/17 Loratadine* (Loratadine*) 10 Mg Tablet, 10 MG PO DAILY, #30 TAB 2/21/18 Lactobacillus Acidophilus* (Lactinex*) 1 Tab Chew, 2 TAB PO BID, TAB 10/23/17 Hydrocodone/Acetaminophen ([place] 5-325 Tablet) 1 Each Tablet, 1 EACH PO Q6 PRN for SEVERE PAIN LEVEL 7-10, TAB 10/23/17 Gentamicin Sulfate* (Gentamicin Sulfate* Ophth) 0.3% - 5 Ml Drops, 1 DROP BOTH EYES Q4, EA 10/23/17 Felodipine* (Felodipine*) 10 Mg Tab.sr.24h, 10 MG PO DAILY, TAB.SA 10/23/17 Docusate Sodium* (Docusate Sodium*) 100 Mg Capsule, 100 MG PO QHS, #30 CAP 10/23/17 Cholecalciferol* (Vitamin D3*) 1,000 Unit Tablet, 1000 UNIT PO DAILY, TAB 10/23/17 Bisacodyl* (Bisacodyl*) 10 Mg Supp, 10 MG HI Q24H PRN for CONSTIPATION, SUPP 10/23/17 Aspirin* (Aspirin* Chew) 81 Mg Tab.chew, 81 MG PO DAILY, TAB.CHEW 10/23/17 Acetaminophen* (Acetaminophen*) 650 Mg Tablet, 650 MG PO Q6H PRN for PAIN AND OR ELEVATED TEMP, #30 TAB 10/23/17 Medications Current Medications Acetaminophen (Tylenol Tab) 650 mg Q6H PRN PO MILD PAIN LEVEL 1-3 Last administered on 12/23/18at 20:49; Admin Dose 650 MG; Start 12/22/18 at 10:00 Aspirin (Halfprin) 81 mg DAILY PO Last administered on 12/28/18at 08:25; Admin Dose 81 MG; Start 12/23/18 at 09:00 Atorvastatin Calcium (Lipitor) 80 mg QHS PO Last administered on 12/28/18at 20:11; Admin Dose 80 MG; Start 12/22/18 at 21:00 Cholecalciferol (Vitamin D) 1,000 unit DAILY PO Last administered on 12/28/18at 08:27; Admin Dose 1,000 UNIT; Start 12/23/18 at 09:00 Docusate Sodium (Colace) 100 mg DAILY PRN PO CONSTIPATION Last administered on 12/28/18at 22:33; Admin Dose 100 MG; Start 12/22/18 at 10:00 Isosorbide Dinitrate (Isordil) 30 mg DAILY PO Last administered on 12/28/18 08:25; Admin Dose 30 MG; Start 12/23/18 at 09:00 Metoprolol Tartrate (Lopressor) 50 mg BID PO Last administered on 12/28/18 20:11; Admin Dose 50 MG; Start 12/22/18 at 21:00 Multivitamins Therapeutic (Theragran) 1 tab DAILY PO Last administered on 12/28/18 08:23; Admin Dose 1 TAB; Start 12/23/18 at 09:00 Pantoprazole (Protonix Tab) 40 mg DAILY PO Last administered on 12/28/18 08:25; Admin Dose 40 MG; Start 12/23/18 at 09:00 Polyethylene Glycol (Miralax) 17 gm DAILY PO Last administered on 12/28/18 08:25; Admin Dose 17 GM; Start 12/23/18 at 09:00 Acetaminophen/ Hydrocodone Bitart ([place] (5/325)) 1 tab Q6H PRN PO PAIN LEVEL 7-10 Last administered on 12/28/18 20:14; Admin Dose 1 TAB; Start 12/22/18 at 10:30 Insulin Aspart (Novolog Insulin Pen) NOVOLOG *MILD* ALGORITHM WITH MEALS BEDTIME SC Last administered on 12/29/18 07:58; Admin Dose 4 UNIT; Start 12/22/18 at 18:00 Lidocaine (Lidoderm) 1 patch DAILY TD Last administered on 12/28/18 08:24; Admin Dose 1 PATCH; Start 12/24/18 at 09:00 Heparin Sodium (Porcine) (Heparin (5000 Units/1ml)) 5,000 unit BID SC Last administered on 12/28/18 20:52; Admin Dose 5,000 UNIT; Start 12/23/18 at 21:00 Nitroglycerin (Nitroglycerin 2% Oint) 1 inch Q6 PRN TD SBP>170 Last administer ed on 12/26/18 20:19; Admin Dose 1 INCH; Start 12/24/18 at 01:30 Hydralazine HCl (Apresoline) 25 mg Q6 PRN PO SBP >160 Last administered on 12/24/18 03:20; Admin Dose 25 MG; Start 12/24/18 at 01:30 Ondansetron HCl (Zofran Inj) 1 mg Q6H PRN IV NAUSEA AND/OR VOMITING Last administered on 12/29/18 05:48; Admin Dose 1 MG; Start 12/24/18 at 02:30 Ertapenem 0.5 gm/ Sodium Chloride 100 ml @ 200 mls/hr Q24H IVPB Last administered on 12/28/18 16:36; Admin Dose 200 MLS/HR; Start 12/24/18 at 17:00 Amlodipine Besylate (Norvasc) 10 mg DAILY PO Last administered on 12/28/18 08:25; Admin Dose 10 MG; Start 12/26/18 at 09:00 Linagliptin (Tradjenta) 5 mg DAILY PO Last administered on 12/28/18 08:23; Admin Dose 5 MG; Start 12/28/18 at 09:00 Diagnostic Test (Pha) (Accu-Chek) 1 ea AC MEALS AND BEDTIME XX Last administered on 12/29/18 07:40; Admin Dose 1 EA; Start 12/27/18 at 11:20 Insulin Glargine (Lantus) 10 units QHS SC Last administered on 12/28/18 20:53; Admin Dose 10 UNITS; Start 12/28/18 at 21:00 Insulin Glargine (Lantus) 15 units QAM SC Last administered on 12/29/18 07:58; Admin Dose 15 UNITS; Start 12/28/18 at 09:00 Assessment/Plan Hospital Course (Demo Recall) 68-year-old female, with a past medical history cerebrovascular accident with left-sided hemiplegia, history of hypertension, history of GERD, history of diabetes, diabetic neuropathy, history of coronary artery disease, presented to [facility] Emergency Room from [facility] after she was noted to have deviated tongue, lethargy and dysarthria. Her creatinine was 1.99 and it did go up to 4.92. She had a renal ultrasound and that showed mild right hydronephrosis. A urological consultation was therefore requested. Patient denies any prior history of kidney stones. She did have cholecystectomy and appendectomy and tubal ligation. She has been a resident of the senior care facility for at least 2 years and that is because of her stroke. She states that she does urinate on her own and did not need an indwelling catheter before. On the examination there is no flank tenderness. She does have urinary tract infection with E. coli ESBL. CT scan of the abdomen and pelvis without IV contrast showed: 1. No renal calculi are seen. 2. Borderline mild right-sided hydronephrosis is again seen with parenchymal heterogeneity of both kidneys, more severe on the right. Pyelonephritis is a likely consideration. 3. There is presumed residual contrast enhancement of the kidneys from the CT cerebral angiogram dated December 22, 2018 concerning for renal failure. 4. Mild bladder wall thickening is present despite the nondistended state. Cystitis is a likely consideration. 5. Small pulmonary nodules are seen measuring up to 0.4 cm in size. Correlation with other priors is suggested if available. This may not warrant additional followup if the patient has no risk factors per the Fleischner society guidelines. If the patient has risk factors a followup chest CT is suggested in 12 months. 6. Clinical and laboratory correlation is suggested for signs of infection. Consider follow-up MRI of the kidneys if there is concern for other infiltrative process. The mild right hydronephrosis that she has and the appearance of the bladder may be explained by her UTI with ESBL. There are no stones or obstruction. The urine is clear Continue the treatment of her infection with the ertapenem. JACQUELINE MAURER MD Dec 29, 2018 08:07
[2018-12-29] MEDS: POLYETHYLENE GLYCOL 17 GM PACKET PO SCH (08:42)
[2018-12-29] MEDS: CHOLECALCIFEROL 1,000 UNIT TAB PO SCH (08:42)
[2018-12-29] MEDS: MULTIVITAMINS THERAPEUTIC TAB PO SCH (08:42)
[2018-12-29] MEDS: METOPROLOL 50 MG TAB PO SCH ×2 (08:43→20:57)
[2018-12-29] MEDS: ASPIRIN (EC) 81 MG TAB PO SCH (08:43)
[2018-12-29] MEDS: PANTOPRAZOLE (EC) 40 MG TAB PO SCH (08:43)
[2018-12-29] MEDS: LINAGLIPTIN 5 MG TABLET PO SCH (08:44)
[2018-12-29] MEDS: AMLODIPINE 10 MG TAB PO SCH (08:44)
[2018-12-29] MEDS: HEPARIN 5,000 UNIT/1 ML VIAL SC SCH ×2 (08:54→22:12)
[2018-12-29] MEDS: LUBIPROSTONE 24 MCG CAP PO SCH ×2 (09:15→20:56)
[2018-12-29] MEDS: ISOSORBIDE DINITRATE 10 MG TAB PO SCH (09:15)
[2018-12-29] MEDS: LIDOCAINE 5% PATCH TD SCH (09:17)
--- NOTE | 2018-12-29 09:45 | PN ---
DATE: 12/29/2018 SUBJECTIVE: The patient had episode of vomiting yesterday. She is complaining about general abdomin al pain. The patient is also stating she feels constipated, with no recent bowel movement. OBJECTIVE: VITAL SIGNS: Blood pressure is 142/64, respiration 18, pulse 72, temperature 99.6. HEENT: Head is normocephalic. NECK: Supple. HEART: Regular rate. LUNGS: Show diminished breath sounds at the base. ABDOMEN: Soft. Mild tenderness to palpation. No rebound or guarding. EXTREMITIES: Negative for clubbing, cyanosis, no edema. DERMATOLOGIC: No rashes. MUSCULOSKELETAL: No joint effusion. NEUROLOGIC: No change in exam. MEDICATIONS: Reviewed. LABORATORY DATA: Has been reviewed. Laboratory data from 12/29/2018 is pending. ASSESSMENT AND PLAN: 1. Nonoliguric acute kidney injury, stage III with previous baseline creatinine around 1.8 mg/dL. E tiology of acute kidney injury is secondary to acute tubular necrosis due to contrast-associated neph ropathy. The patient is in recovery phase of acute tubular necrosis. We will continue to monitor. Continue current treatment plans, supportive care, renally dose all meds. 2. Abdominal pain with episode of vomiting. Etiology may be secondary to gastritis, constipation. Plan is to check a KUB. Will monitor closely and give antiemetics. 3. Constipation. The patient's bowel regimen will be adjusted. Will start the patient on Amitiza, monitor closely. 4. Transient ischemic attack, resolved. Continue medical management. 5. Right internal carotid artery stenosis. Continue to monitor. No plan for intervention for vascu lar surgery. 6. Sepsis secondary to urinary tract infection. Continue current antibiotic regimen. 7. Mild hydronephrosis, improving. Continue to monitor. 8. Mineral bone disorder, monitor calcium and phosphorus levels. 9. Anemia. Continue to monitor hemoglobin and hematocrit levels. 10. Diabetes. We will continue to adjust insulin regimen. 11. Hypertension. Continue current blood pressure regimen. 12. Dyslipidemia. Continue statin therapy. 13. History of coronary artery disease. Continue medical management. 14. Right costovertebral pain, improving. 15. Gastrointestinal and deep vein thrombosis prophylaxis. Dictated By: MAIDA GARCIA/CALISTA Conf#: [id number] DID#: [id number]
[2018-12-29] MEDS: ACETAMINOPHEN 325 MG TAB PO PRN (10:49)
--- NOTE | 2018-12-29 11:24 | CONS ---
Assessment/Plan Assessment/Plan Hospital Course (Demo Recall) Acute on chronic renal failure: baseline 1.8. Worsened from contrast nephropathy, now improving nicely Right carotid 95% stenosis:She was evaluated by neurology and vascular surgery and thought not to be a candidate for intervention as she already had dense disease of the affected side without acute stroke. UTI CAD s/p PCI LAD 10/2017 HTN h/o CVA with left hemiparesis -continue ASA -lipitor 80mg -metoprolol 50mg BID -isordil 30mg -amlodipine 10mg -antibiotics -dispo per primary Consultation Date/Type/Reason Admit Date/Time Dec 22, 2018 at 06:52 Initial Consult Date 12/25/18 Type of Consult Cardiology Requesting Provider: MAIDA DOZIER DO Date/Time of Note DATE: 12/29/18 TIME: 11:23 24 HR Interval Summary Free Text/Dictation Mild abdominal pain this am. Now resolved after BM. Leukocytosis new today, no fevers Exam/Review of Systems Vital Signs Vitals Vital Signs Date Temp Pulse Resp B/P (MAP) Pulse Ox O2 O2 Flow FiO2 Time Delivery Rate 12/29/18 98.5 74 18 126/58 99 11:11 (80) 12/27/18 Room Air 15:33 Intake and Output 12/28/18 12/28/18 12/29/18 1515:00 23:00 07:00 IntakeIntake Total 800 ml 1050 ml 300 ml OutputOutput Total 1550 ml 1150 ml 1050 ml BalanceBalance -750 ml -100 ml -750 ml Exam Constitutional: alert, oriented Psych: no complaints, nl mood/affect Head: normocephalic, atraumatic Neck: No jvd Respiratory: clear to auscultation; No crackles/rales Cardiovascular: regular rate and rhythm; No edema Gastrointestinal: soft, non-tender; No distended Neurological: nl mental status, nl speech Labs Result Diagram: 12/29/1818 12/29/1818 Results 24hrs Laboratory Tests Test 12/28/18 12:20 12/28/18 17:32 12/28/18 20:09 12/29/18 02:54 Bedside Glucose 265 H 210 193 219 Test 12/29/18 07:18 12/29/18 07:39 White Blood Count 15.7 #H Red Blood Count 3.40 L Hemoglobin 10.7 L Hematocrit 31.2 L Mean Corpuscular 91.8 Volume Mean Corpuscular 31.5 Hemoglobin Mean Corpuscular 34.3 Hemoglobin Concent Red Cell 11.5 Distribution Width Platelet Count 335 Mean Platelet Volume 8.9 Immature 0.700 H Granulocytes % Neutrophils % 90.0 H Lymphocytes % 5.3 L Monocytes % 3.2 Eosinophils % 0.5 Basophils % 0.3 Nucleated Red Blood 0.0 Cells % Immature 0.110 H Granulocytes # Neutrophils # 14.2 H Lymphocytes # 0.8 Monocytes # 0.5 Eosinophils # 0.1 Basophils # 0.0 Nucleated Red Blood 0.0 Cells # Sodium Level 138 Potassium Level 5.2 H Chloride Level 106 Carbon Dioxide Level 22 Anion Gap 10 Blood Urea Nitrogen 37 H Creatinine 2.74 H Est Glomerular 17 L Filtrat Rate mL/min Glucose Level 249 H Calcium Level 9.7 Phosphorus Level 4.5 Magnesium Level 1.7 Bedside Glucose 273 H Medications Medications Current Medications Acetaminophen (Tylenol Tab) 650 mg Q6H PRN PO MILD PAIN LEVEL 1-3 Last administered on 12/29/18 10:49; Admin Dose 650 MG; Start 12/22/18 at 10:00 Aspirin (Halfprin) 81 mg DAILY PO Last administered on 12/29/18 08:43; Admin Dose 81 MG; Start 12/23/18 at 09:00 Atorvastatin Calcium (Lipitor) 80 mg QHS PO Last administered on 12/28/18 20:11; Admin Dose 80 MG; Start 12/22/18 at 21:00 Cholecalciferol (Vitamin D) 1,000 unit DAILY PO Last administered on 12/29/18 08:42; Admin Dose 1,000 UNIT; Start 12/23/18 at 09:00 Docusate Sodium (Colace) 100 mg DAILY PRN PO CONSTIPATION Last administered on 12/28/18 22:33; Admin Dose 100 MG; Start 12/22/18 at 10:00 Isosorbide Dinitrate (Isordil) 30 mg DAILY PO Last administered on 12/29/18 09:15; Admin Dose 30 MG; Start 12/23/18 at 09:00 Metoprolol Tartrate (Lopressor) 50 mg BID PO Last administered on 12/29/18 08:43; Admin Dose 50 MG; Start 12/22/18 at 21:00 Multivitamins Therapeutic (Theragran) 1 tab DAILY PO Last administered on 12/29/18 08:42; Admin Dose 1 TAB; Start 12/23/18 at 09:00 Pantoprazole (Protonix Tab) 40 mg DAILY PO Last administered on 12/29/18 08:43; Admin Dose 40 MG; Start 12/23/18 at 09:00 Polyethylene Glycol (Miralax) 17 gm DAILY PO Last administered on 12/29/18 08:42; Admin Dose 17 GM; Start 12/23/18 at 09:00 Acetaminophen/ Hydrocodone Bitart ([place] (5/325)) 1 tab Q6H PRN PO PAIN LEVEL 7-10 Last administered on 12/28/18 20:14; Admin Dose 1 TAB; Start 12/22/18 at 10:30 Insulin Aspart (Novolog Insulin Pen) NOVOLOG *MILD* ALGORITHM WITH MEALS BEDTIME SC Last administered on 12/29/18 07:58; Admin Dose 4 UNIT; Start 12/22/18 at 18:00 Lidocaine (Lidoderm) 1 patch DAILY TD Last administered on 12/29/18 09:17; Admin Dose 1 PATCH; Start 12/24/18 at 09:00 Heparin Sodium (Porcine) (Heparin (5000 Units/1ml)) 5,000 unit BID SC Last administered on 12/29/18 08:54; Admin Dose 5,000 UNIT; Start 12/23/18 at 21:00 Nitroglycerin (Nitroglycerin 2% Oint) 1 inch Q6 PRN TD SBP>170 Last administered on 12/26/18 20:19; Admin Dose 1 INCH; Start 12/24/18 at 01:30 Hydralazine HCl (Apresoline) 25 mg Q6 PRN PO SBP >160 Last administered on 12/24/18 03:20; Admin Dose 25 MG; Start 12/24/18 at 01:30 Ondansetron HCl (Zofran Inj) 1 mg Q6H PRN IV NAUSEA AND/OR VOMITING Last administered on 12/29/18 05:48; Admin Dose 1 MG; Start 12/24/18 at 02:30 Ertapenem 0.5 gm/ Sodium Chloride 100 ml @ 200 mls/hr Q24H IVPB Last administered on 12/28/18 16:36; Admin Dose 200 MLS/HR; Start 12/24/18 at 17:00 Amlodipine Besylate (Norvasc) 10 mg DAILY PO Last administered on 12/29/18 08:44; Admin Dose 10 MG; Start 12/26/18 at 09:00 Linagliptin (Tradjenta) 5 mg DAILY PO Last administered on 12/29/18at 08:44; Admin Dose 5 MG; Start 12/28/18 at 09:00 Diagnostic Test (Pha) (Accu-Chek) 1 ea AC MEALS AND BEDTIME XX Last administered on 12/29/18at 07:40; Admin Dose 1 EA; Start 12/27/18 at 11:20 Insulin Glargine (Lantus) 20 units QAM SC ; Start 12/29/18 at 09:00 Lubiprostone (Amitiza) 24 mcg BID PO Last administered on 12/29/18at 09:15; Admin Dose 24 MCG; Start 12/29/18 at 09:00 Insulin Glargine (Lantus) 15 units QHS SC ; Start 12/29/18 at 21:00 OSCAR OLSON Dec 29, 2018 11:24
--- NOTE | 2018-12-29 14:05 | CONS ---
Assessment/Plan Assessment/Plan Hospital Course (Demo Recall) Alert feels good denies pain she is afebrile with a T-max of 99.5 WBC 15.7 neutrophils 90 BUN 37 creatinine 2.74 KUB revealed moderate colonic stool with no air-fluid levels Antimicrobials: Invanz Urine culture grew E. coli ESBL. Allergies: Tetracycline Indwelling: Mccall Physical examination: Obese well-developed elderly woman who is in alert no distress. Head atraumatic normocephalic neck is supple chest rise symmetrical breath sounds clear. Heart: S1-S2. Abdomen soft bowel sounds present. Assessment: 1. S/p sepsis, present on admission 2. E. coli ESBL UTI 3. Morbid obesity 4. Diabetes 5. S/p encephalopathy, neurology on case 6. Acute renal failure Plan: Remains stable, continue antibiotics, urology recommendations noted, will reculture if she spikes fever of 101. Repeat chest x-ray in a.m. Consultation Date/Type/Reason Admit Date/Time Dec 22, 2018 at 06:52 Initial Consult Date Type of Consult id Requesting Provider: MAIDA DOZIER DO Date/Time of Note DATE: 12/29/18 TIME: 14:04 Exam/Review of Systems Exam Vitals Vital Signs Date Temp Pulse Resp B/P (MAP) Pulse Ox O2 O2 Flow FiO2 Time Delivery Rate 12/29/18 77 12:10 12/29/18 98.5 18 126/58 99 11:11 (80) 12/27/18 Room Air 15:33 Intake and Output 12/28/18 12/28/18 12/29/18 1515:00 23:00 07:00 IntakeIntake Total 800 ml 1050 ml 300 ml OutputOutput Total 1550 ml 1150 ml 1050 ml BalanceBalance -750 ml -100 ml -750 ml Results Result Diagram: 12/29/18 0718 12/29/18 0718 Results 24hrs Laboratory Tests Test 12/28/18 17:32 12/28/18 20:09 12/29/18 02:54 12/29/18 07:18 Bedside Glucose 210 193 219 White Blood Count 15.7 #H Red Blood Count 3.40 L Hemoglobin 10.7 L Hematocrit 31.2 L Mean Corpuscular 91.8 Volume Mean Corpuscular 31.5 Hemoglobin Mean Corpuscular 34.3 Hemoglobin Concent Red Cell 11.5 Distribution Width Platelet Count 335 Mean Platelet Volume 8.9 Immature 0.700 H Granulocytes % Neutrophils % 90.0 H Lymphocytes % 5.3 L Monocytes % 3.2 Eosinophils % 0.5 Basophils % 0.3 Nucleated Red Blood 0.0 Cells % Immature 0.110 H Granulocytes # Neutrophils # 14.2 H Lymphocytes # 0.8 Monocytes # 0.5 Eosinophils # 0.1 Basophils # 0.0 Nucleated Red Blood 0.0 Cells # Sodium Level 138 Potassium Level 5.2 H Chloride Level 106 Carbon Dioxide Level 22 Anion Gap 10 Blood Urea Nitrogen 37 H Creatinine 2.74 H Est Glomerular 17 L Filtrat Rate mL/min Glucose Level 249 H Calcium Level 9.7 Phosphorus Level 4.5 Magnesium Level 1.7 Test 12/29/18 07:39 12/29/18 11:42 Bedside Glucose 273 H 270 H Medications Medication Current Medications Acetaminophen (Tylenol Tab) 650 mg Q6H PRN PO MILD PAIN LEVEL 1-3 Last administered on 12/29/18 10:49; Admin Dose 650 MG; Start 12/22/18 at 10:00 Aspirin (Halfprin) 81 mg DAILY PO Last administered on 12/29/18 08:43; Admin Dose 81 MG; Start 12/23/18 at 09:00 Atorvastatin Calcium (Lipitor) 80 mg QHS PO Last administered on 12/28/18 20:11; Admin Dose 80 MG; Start 12/22/18 at 21:00 Cholecalciferol (Vitamin D) 1,000 unit DAILY PO Last administered on 12/29/18 08:42; Admin Dose 1,000 UNIT; Start 12/23/18 at 09:00 Docusate Sodium (Colace) 100 mg DAILY PRN PO CONSTIPATION Last administered on 12/28/18 22:33; Admin Dose 100 MG; Start 12/22/18 at 10:00 Isosorbide Dinitrate (Isordil) 30 mg DAILY PO Last administered on 12/29/18 09:15; Admin Dose 30 MG; Start 12/23/18 at 09:00 Metoprolol Tartrate (Lopressor) 50 mg BID PO Last administered on 12/29/18 08:43; Admin Dose 50 MG; Start 12/22/18 at 21:00 Multivitamins Therapeutic (Theragran) 1 tab DAILY PO Last administered on 12/29/18 08:42; Admin Dose 1 TAB; Start 12/23/18 at 09:00 Pantoprazole (Protonix Tab) 40 mg DAILY PO Last administered on 12/29/18 08:43; Admin Dose 40 MG; Start 12/23/18 at 09:00 Polyethylene Glycol (Miralax) 17 gm DAILY PO Last administered on 12/29/18 08:42; Admin Dose 17 GM; Start 12/23/18 at 09:00 Acetaminophen/ Hydrocodone Bitart ([place] (5/325)) 1 tab Q6H PRN PO PAIN LEVEL 7-10 Last administered on 12/28/18 20:14; Admin Dose 1 TAB; Start 12/22/18 at 10:30 Insulin Aspart (Novolog Insulin Pen) NOVOLOG *MILD* ALGORITHM WITH MEALS BEDTIME SC Last administered on 12/29/18 11:47; Admin Dose 4 UNIT; Start 12/22/18 at 18:00 Lidocaine (Lidoderm) 1 patch DAILY TD Last administered on 12/29/18 09:17; Admin Dose 1 PATCH; Start 12/24/18 at 09:00 Heparin Sodium (Porcine) (Heparin (5000 Units/1ml)) 5,000 unit BID SC Last administered on 12/29/18 08:54; Admin Dose 5,000 UNIT; Start 12/23/18 at 21:00 Nitroglycerin (Nitroglycerin 2% Oint) 1 inch Q6 PRN TD SBP>170 Last administered on 12/26/18 20:19; Admin Dose 1 INCH; Start 12/24/18 at 01:30 Hydralazine HCl (Apresoline) 25 mg Q6 PRN PO SBP >160 Last administered on 12/24/18 03:20; Admin Dose 25 MG; Start 12/24/18 at 01:30 Ondansetron HCl (Zofran Inj) 1 mg Q6H PRN IV NAUSEA AND/OR VOMITING Last administered on 12/29/18 12:55; Admin Dose 1 MG; Start 12/24/18 at 02:30 Ertapenem 0.5 gm/ Sodium Chloride 100 ml @ 200 mls/hr Q24H IVPB Last administered on 12/28/18 16:36; Admin Dose 200 MLS/HR; Start 12/24/18 at 17:00 Amlodipine Besylate (Norvasc) 10 mg DAILY PO Last administered on 12/29/18 08:44; Admin Dose 10 MG; Start 12/26/18 at 09:00 Linagliptin (Tradjenta) 5 mg DAILY PO Last administered on 12/29/18 08:44; Admin Dose 5 MG; Start 12/28/18 at 09:00 Diagnostic Test (Pha) (Accu-Chek) 1 ea AC MEALS AND BEDTIME XX Last administered on 12/29/18 11:44; Admin Dose 1 EA; Start 12/27/18 at 11:20 Insulin Glargine (Lantus) 20 units QAM SC ; Start 12/29/18 at 09:00 Lubiprostone (Amitiza) 24 mcg BID PO Last administered on 12/29/18 09:15; Admin Dose 24 MCG; Start 12/29/18 at 09:00 Insulin Glargine (Lantus) 15 units QHS SC ; Start 12/29/18 at 21:00 JASON GLOVER NP Dec 29, 2018 14:05
[2018-12-29] MEDS: ERTAPENEM SODIUM 0.5 GM in SOD CHLORIDE 0.9% 100 ML IVPB SCH (16:03)
[2018-12-29] MEDS: ATORVASTATIN 80 MG TAB PO SCH ×2 (20:56→21:00)
[2018-12-29] MEDS: HYDROCODONE/APAP (5/325) TAB PO PRN (20:56)
[2018-12-29] MEDS ORDERED: INSULIN GLARGINE [LANTus] (100 UNITS/ML) SYG SC SCH (21:00)
[2018-12-30] VITALS (11 sets, daily range): BP systolic 126–180; BP diastolic 60–87; PULSE 54–67; RESP 19–22
[2018-12-30] MEDS: LINAGLIPTIN 5 MG TABLET PO SCH (07:50)
[2018-12-30] MEDS: ISOSORBIDE DINITRATE 10 MG TAB PO SCH (07:50)
[2018-12-30] MEDS: METOPROLOL 50 MG TAB PO SCH (07:50)
[2018-12-30] MEDS: AMLODIPINE 10 MG TAB PO SCH (07:50)
[2018-12-30] MEDS: ACCU-CHEK XX SCH ×3 (07:51→17:42)
[2018-12-30] MEDS: INSULIN ASPART [NOVOLOG] 3 ML PEN SC SCH ×3 (07:51→18:03)
[2018-12-30] MEDS: LIDOCAINE 5% PATCH TD SCH (07:54)
[2018-12-30] MEDS: INSULIN GLARGINE [LANTus] (100 UNITS/ML) SYG SC SCH (07:58)
--- NOTE | 2018-12-30 08:38 | CONS ---
Consult Date/Type/Reason Admit Date/Time Dec 22, 2018 at 06:52 Initial Consult Date 12/24/18 Type of Consultation: Urology Reason for Consultation Mild right hydronephrosis and urinary tract infection Requesting Provider: MAIDA DOZIER DO Date/Time of Note DATE: 12/30/18 TIME: 08:36 Subjective No events overnight Objective Vitals Vital Signs Date Temp Pulse Resp B/P (MAP) Pulse Ox O2 O2 Flow FiO2 Time Delivery Rate 12/30/18 62 08:00 12/30/18 98.2 19 168/75 94 07:23 (106) 12/27/18 Room Air 15:33 Intake and Output 12/29/18 12/29/18 12/30/18 1515:00 23:00 07:00 IntakeIntake Total 600 ml 300 ml OutputOutput Total 575 ml 650 ml BalanceBalance 25 ml -350 ml Exam Patient is comfortable and the Mccall catheter is draining clear urine Results/Medications Result Diagram: 12/30/18 0729 12/30/18 0729 Results 24 hrs Laboratory Tests Test 12/29/18 11:42 12/29/18 17:19 12/29/18 21:46 12/30/18 07:29 Bedside Glucose 270 H 260 H 157 White Blood Count 9.2 # Red Blood Count 3.15 L Hemoglobin 10.0 L Hematocrit 29.6 L Mean Corpuscular 94.0 Volume Mean Corpuscular 31.7 Hemoglobin Mean Corpuscular 33.8 Hemoglobin Concent Red Cell 11.8 Distribution Width Platelet Count 318 Mean Platelet Volume 8.7 Immature 0.700 H Granulocytes % Neutrophils % 68.1 Lymphocytes % 21.0 Monocytes % 8.1 Eosinophils % 1.8 Basophils % 0.3 Nucleated Red Blood 0.0 Cells % Immature 0.060 H Granulocytes # Neutrophils # 6.3 Lymphocytes # 1.9 Monocytes # 0.8 Eosinophils # 0.2 Basophils # 0.0 Nucleated Red Blood 0.0 Cells # Sodium Level 140 Potassium Level 4.7 Chloride Level 107 Carbon Dioxide Level 25 Anion Gap 8 Blood Urea Nitrogen 40 H Creatinine 2.73 H Est Glomerular 17 L Filtrat Rate mL/min Glucose Level 98 # Calcium Level 9.7 Phosphorus Level 5.0 H Magnesium Level 1.9 Test 12/30/18 07:48 Bedside Glucose 113 Home Meds Reported Medications Insulin Lispro (Humalog Kwikpen U-100) 100 Unit/1 Ml Insuln.pen, 0 SQ AC MEALS AND BEDTIME, EA 12/22/18 Cholecalciferol* (Vitamin D3*) 1,000 Unit Tablet, 1000 UNIT PO DAILY, TAB 12/22/18 Acetaminophen* (Acetaminophen*) 650 Mg Tablet, 650 MG PO Q6H PRN for MILD PAIN LEVEL 1-3, #30 TAB AND FEVER 12/22/18 Pantoprazole* (Protonix*) 40 Mg Tablet.dr, 40 MG PO DAILY, TAB 12/22/18 Multivitamin* (Daily Value*) 1 Each Tablet, 1 TAB PO DAILY, TAB 12/22/18 Polyethylene Glycol* (Miralax*) 17 Gm Powd.pack, 17 GM PO DAILY, #30 PACKET 12/22/18 Amlodipine Besylate* (Norvasc*) 5 Mg Tablet, 5 MG PO DAILY, TAB HOLD FOR SBP<110 OR HR <60 12/22/18 Aspirin (Low Dose Aspirin) 81 Mg Tablet.dr, 81 MG PO DAILY, #30 TAB 12/22/18 Atorvastatin* (Atorvastatin*) 80 Mg Tablet, 80 MG PO QHS, #30 TAB 12/22/18 Docusate Sodium* (Colace*) 100 Mg Capsule, 100 MG PO DAILY PRN for CONSTIPATION, #30 CAP 12/22/18 Ibuprofen* (Motrin*) 400 Mg Tab, 400 MG PO Q6H PRN for PAIN LEVEL 4-6, TAB 12/22/18 Insulin Detemir (Levemir Flextouch) 100 Unit/1 Ml Insuln.pen, 32 UNIT SQ QHS, EA 12/22/18 Insulin Detemir (Levemir Flextouch) 100 Unit/1 Ml Insuln.pen, 35 UNIT SQ QAM, EA 12/22/18 Isosorbide Dinitrate* (Isosorbide Dinitrate*) 30 Mg Tablet, 30 MG PO DAILY, TAB HOLD FOR SBP <110 OR HR<60 12/22/18 Metoprolol Tartrate* (Lopressor*) 50 Mg Tab, 50 MG PO BID, #60 TAB HOLD IF SBP <110 OR HR <60 GIVE WITH FOOD 12/22/18 Acetaminophen with Codeine (Acetaminophen-Cod #3 Tablet) 1 Each Tablet, 1 TAB PO Q6H PRN for SEVERE PAIN LEVEL 7-10, #7 TAB 12/22/18 Medications Current Medications Acetaminophen (Tylenol Tab) 650 mg Q6H PRN PO MILD PAIN LEVEL 1-3 Last administered on 12/29/18 10:49; Admin Dose 650 MG; Start 12/22/18 at 10:00 Aspirin (Halfprin) 81 mg DAILY PO Last administered on 12/29/18 08:43; Admin Dose 81 MG; Start 12/23/18 at 09:00 Atorvastatin Calcium (Lipitor) 80 mg QHS PO Last administered on 12/28/18 20:11; Admin Dose 80 MG; Start 12/22/18 at 21:00 Cholecalciferol (Vitamin D) 1,000 unit DAILY PO Last administered on 12/29/18 08:42; Admin Dose 1,000 UNIT; Start 12/23/18 at 09:00 Docusate Sodium (Colace) 100 mg DAILY PRN PO CONSTIPATION Last administered on 12/28/18 22:33; Admin Dose 100 MG; Start 12/22/18 at 10:00 Isosorbide Dinitrate (Isordil) 30 mg DAILY PO Last administered on 12/30/18 07:50; Admin Dose 30 MG; Start 12/23/18 at 09:00 Metoprolol Tartrate (Lopressor) 50 mg BID PO Last administered on 12/30/18 07:50; Admin Dose 50 MG; Start 12/22/18 at 21:00 Multivitamins Therapeutic (Theragran) 1 tab DAILY PO Last administered on 12/29/18 08:42; Admin Dose 1 TAB; Start 12/23/18 at 09:00 Pantoprazole (Protonix Tab) 40 mg DAILY PO Last administered on 12/29/18 08 :43; Admin Dose 40 MG; Start 12/23/18 at 09:00 Polyethylene Glycol (Miralax) 17 gm DAILY PO Last administered on 12/29/18 08:42; Admin Dose 17 GM; Start 12/23/18 at 09:00 Acetaminophen/ Hydrocodone Bitart ([place] (5/325)) 1 tab Q6H PRN PO PAIN LEVEL 7-10 Last administered on 12/29/18 20:56; Admin Dose 1 TAB; Start 12/22/18 at 10:30 Insulin Aspart (Novolog Insulin Pen) NOVOLOG *MILD* ALGORITHM WITH MEALS BEDTIME SC Last administered on 12/29/18 17:31; Admin Dose 3 UNIT; Start 12/22/18 at 18:00 Lidocaine (Lidoderm) 1 patch DAILY TD Last administered on 12/30/18 07:54; Admin Dose 1 PATCH; Start 12/24/18 at 09:00 Heparin Sodium (Porcine) (Heparin (5000 Units/1ml)) 5,000 unit BID SC Last administered on 12/29/18 22:12; Admin Dose 5,000 UNIT; Start 12/23/18 at 21:00 Nitroglycerin (Nitroglycerin 2% Oint) 1 inch Q6 PRN TD SBP>170 Last administered on 12/26/18 20:19; Admin Dose 1 INCH; Start 12/24/18 at 01:30 Hydralazine HCl (Apresoline) 25 mg Q6 PRN PO SBP >160 Last administered on 12/24/18 03:20; Admin Dose 25 MG; Start 12/24/18 at 01:30 Ondansetron HCl (Zofran Inj) 1 mg Q6H PRN IV NAUSEA AND/OR VOMITING Last administered on 12/29/18 12:55; Admin Dose 1 MG; Start 12/24/18 at 02:30 Ertapenem 0.5 gm/ Sodium Chloride 100 ml @ 200 mls/hr Q24H IVPB Last administered on 12/29/18 16:03; Admin Dose 200 MLS/HR; Start 12/24/18 at 17:00 Amlodipine Besylate (Norvasc) 10 mg DAILY PO Last administered on 12/30/18 07:50; Admin Dose 10 MG; Start 12/26/18 at 09:00 Linagliptin (Tradjenta) 5 mg DAILY PO Last administered on 12/30/18 07:50; Admin Dose 5 MG; Start 12/28/18 at 09:00 Diagnostic Test (Pha) (Accu-Chek) 1 ea AC MEALS AND BEDTIME XX Last administered on 12/30/18 07:51; Admin Dose 1 EA; Start 12/27/18 at 11:20 Insulin Glargine (Lantus) 20 units QAM SC Last administered on 12/30/18 07:58; Admin Dose 20 UNITS; Start 12/29/18 at 09:00 Lubiprostone (Amitiza) 24 mcg BID PO Last administered on 12/29/18at 20:56; Admin Dose 24 MCG; Start 12/29/18 at 09:00 Insulin Glargine (Lantus) 15 units QHS SC Last administered on 12/29/18at 21:00; Admin Dose 15 UNITS; Start 12/29/18 at 21:00 Assessment/Plan Hospital Course (Demo Recall) 68-year-old female, with a past medical history cerebrovascular accident with left-sided hemiplegia, history of hypertension, history of GERD, history of diabetes, diabetic neuropathy, history of coronary artery disease, presented to [facility] Emergency Room from located within [facility] after she was noted to have deviated tongue, lethargy and dysarthria. Her creatinine was 1.99 and it did go up to 4.92. She had a renal ultrasound and that showed mild right hydronephrosis. A urological consultation was therefore requested. Patient denies any prior history of kidney stones. She did have cholecystectomy and appendectomy and tubal ligation. She has been a resident of the [facility] for at least 2 years and that is because of her stroke. She states that she does urinate on her own and did not need an indwelling catheter before. On the examination there is no flank tenderness. She does have urinary tract infection with E. coli ESBL. CT scan of the abdomen and pelvis without IV contrast showed: 1. No renal calculi are seen. 2. Borderline mild right-sided hydronephrosis is again seen with parenchymal heterogeneity of both kidneys, more severe on the right. Pyelonephritis is a likely consideration. 3. There is presumed residual contrast enhancement of the kidneys from the CT cerebral angiogram dated December 22, 2018 concerning for renal failure. 4. Mild bladder wall thickening is present despite the nondistended state. Cystitis is a likely consideration. 5. Small pulmonary nodules are seen measuring up to 0.4 cm in size. Correlation with other priors is suggested if available. This may not warrant additional followup if the patient has no risk factors per the Fleischner society guidelines. If the patient has risk factors a followup chest CT is suggested in 12 months. 6. Clinical and laboratory correlation is suggested for signs of infection. Consider follow-up MRI of the kidneys if there is concern for other infiltrative process. The mild right hydronephrosis that she has and the appearance of the bladder may be explained by her UTI with ESBL. There are no stones or obstruction. The urine is clear. Continue the treatment of her infection with the ertapenem. JACQUELINE MAURER MD Dec 30, 2018 08:38
[2018-12-30] MEDS: CHOLECALCIFEROL 1,000 UNIT TAB PO SCH (09:18)
[2018-12-30] MEDS: POLYETHYLENE GLYCOL 17 GM PACKET PO SCH (09:18)
[2018-12-30] MEDS: MULTIVITAMINS THERAPEUTIC TAB PO SCH (09:18)
[2018-12-30] MEDS: PANTOPRAZOLE (EC) 40 MG TAB PO SCH (09:18)
[2018-12-30] MEDS: ASPIRIN (EC) 81 MG TAB PO SCH (09:18)
[2018-12-30] MEDS: LUBIPROSTONE 24 MCG CAP PO SCH (09:18)
[2018-12-30] MEDS: HEPARIN 5,000 UNIT/1 ML VIAL SC SCH (09:27)
[2018-12-30] MEDS: HYDROCODONE/APAP (5/325) TAB PO PRN ×2 (10:10→19:53)
--- NOTE | 2018-12-30 10:10 | DS ---
DATE OF ADMISSION: 12/22/2018 DATE OF DISCHARGE: 12/30/2018 HOSPITAL COURSE: This is a 68-year-old female with a past medical history of cerebrovascular acciden t with left-sided hemiplegia, history of hypertension, history of gastroesophageal reflux disease, hi story of diabetes, diabetic neuropathy, history of coronary artery disease who presented to the [facility] from halfway facility after the patient noted to have deviated tongue , lethargy and dysarthria. In the emergency room, the patient had a CT scan of the brain, which show ed no evidence of acute infarct. The patient did have a CT angio, which showed a right-sided interna l carotid stenosis. In terms of the patient's TIA, the patient was then seen by neurologist, Dr. Ceferino gracia, as well as vascular surgeon, Dr. Worthington. Given the fact the patient's symptoms improved and given history of left-sided hemiplegia. Recommendations for carotid endarterectomy was not recommended. The patient herself was also refusing any kind of surgical procedure. The patient on admission also developed contrast-associated nephropathy secondary CT angio. The patient's renal function declined. Creatinine peaked around 6.0 mg/dL. The patient's renal function has subsequently improved and vivienne ears to be stabilizing around a creatinine of 2.7 mg/dL. The patient herself on multiple occasions h as refused any form of hemodialysis. The patient during the hospital course also had episodes of awa sea and vomiting, which has improved with antiemetics. The patient also noted to be constipated and has been placed on a bowel regimen. The patient also on admission noted to have urinary tract infect ion, which is currently being treated with IV antibiotics. The patient will continue antibiotic ther apy in outpatient setting. The patient also on admission noted to have hydronephrosis, mild on the r ight side. The patient was seen by neurology and recommended to continue to treat underlying urinary tract infection. Currently, at that time, the patient is stable, no acute distress. She will be di scharged back to her halfway facility where she will continue care with her primary care phys daniel. At the time of discharge, the patient is stable, in no acute distress. FINAL DIAGNOSES: 1. Nonoliguric acute kidney injury on top of chronic kidney disease. Etiology is secondary to contr ast-associated nephropathy. Renal function is slowly improving. Continue to monitor. 2. Constipation. Continue current bowel regimen. 3. Urinary tract infection. Continue current antibiotic regimen. The patient has extended-spectrum beta-lactamase in the urine. 4. Transient ischemic attack. Resolved. 5. Right internal carotid artery stenosis. Continue to monitor. No plan for intervention. 6. Mild hydronephrosis, stable, continue to monitor. 7. Mineral bone disorder. 8. Anemia. 9. Diabetes. 10. Hypertension. 11. History of coronary artery disease. 12. History of cerebrovascular accident. 13. Gastrointestinal and deep vein thrombosis prophylaxis. CONDITION ON DISCHARGE: At the time of discharge, the patient is stable, no acute distress. FINAL MEDICATIONS: Please see reconciliation list. Dictated By: MAIDA DOZIER DO NR/NTS Conf#: [id number] DID#: [id number] CC: JACQUELINE MAURER MD; MAIDA DOZIER DO;*EndCC*
--- NOTE | 2018-12-30 11:37 | CONS ---
Assessment/Plan Assessment/Plan Hospital Course (Demo Recall) No events, looks comfortable, no fevers Antimicrobials: Invanz Urine culture grew E. coli ESBL. Allergies: Tetracycline Indwelling: Mccall Physical examination: Obese well-developed elderly woman who is in alert no distress. Head atraumatic normocephalic neck is supple chest rise symmetrical breath sounds clear. Heart: S1-S2. Abdomen soft bowel sounds present. Assessment: 1. S/p sepsis, present on admission 2. E. coli ESBL UTI 3. Morbid obesity 4. Diabetes 5. S/p encephalopathy, neurology on case 6. Acute renal failure Plan: Remains stable, wbc wnl, completing antibiotics Consultation Date/Type/Reason Admit Date/Time Dec 22, 2018 at 06:52 Initial Consult Date Type of Consult id Requesting Provider: MAIDA DOZIER DO Date/Time of Note DATE: 12/30/18 TIME: 11:37 Exam/Review of Systems Exam Vitals Vital Signs Date Temp Pulse Resp B/P (MAP) Pulse Ox O2 O2 Flow FiO2 Time Delivery Rate 12/30/18 97.5 62 19 126/60 94 11:06 (82) 12/27/18 Room Air 15:33 Intake and Output 12/29/18 12/29/18 12/30/18 1414:59 22:59 06:59 IntakeIntake Total 600 ml 300 ml OutputOutput Total 575 ml 650 ml BalanceBalance 25 ml -350 ml Results Result Diagram: 12/30/18 0729 12/30/18 0729 Results 24hrs Laboratory Tests Test 12/29/18 11:42 12/29/18 17:19 12/29/18 21:46 12/30/18 07:29 Bedside Glucose 270 H 260 H 157 White Blood Count 9.2 # Red Blood Count 3.15 L Hemoglobin 10.0 L Hematocrit 29.6 L Mean Corpuscular 94.0 Volume Mean Corpuscular 31.7 Hemoglobin Mean Corpuscular 33.8 Hemoglobin Concent Red Cell 11.8 Distribution Width Platelet Count 318 Mean Platelet Volume 8.7 Immature 0.700 H Granulocytes % Neutrophils % 68.1 Lymphocytes % 21.0 Monocytes % 8.1 Eosinophils % 1.8 Basophils % 0.3 Nucleated Red Blood 0.0 Cells % Immature 0.060 H Granulocytes # Neutrophils # 6.3 Lymphocytes # 1.9 Monocytes # 0.8 Eosinophils # 0.2 Basophils # 0.0 Nucleated Red Blood 0.0 Cells # Sodium Level 140 Potassium Level 4.7 Chloride Level 107 Carbon Dioxide Level 25 Anion Gap 8 Blood Urea Nitrogen 40 H Creatinine 2.73 H Est Glomerular 17 L Filtrat Rate mL/min Glucose Level 98 # Calcium Level 9.7 Phosphorus Level 5.0 H Magnesium Level 1.9 Test 12/30/18 07:48 Bedside Glucose 113 Medications Medication Current Medications Acetaminophen (Tylenol Tab) 650 mg Q6H PRN PO MILD PAIN LEVEL 1-3 Last administered on 12/29/18 10:49; Admin Dose 650 MG; Start 12/22/18 at 10:00 Aspirin (Halfprin) 81 mg DAILY PO Last administered on 12/30/18 09:18; Admin Dose 81 MG; Start 12/23/18 at 09:00 Atorvastatin Calcium (Lipitor) 80 mg QHS PO Last administered on 12/28/18 20:11; Admin Dose 80 MG; Start 12/22/18 at 21:00 Cholecalciferol (Vitamin D) 1,000 unit DAILY PO Last administered on 12/30/18 09:18; Admin Dose 1,000 UNIT; Start 12/23/18 at 09:00 Docusate Sodium (Colace) 100 mg DAILY PRN PO CONSTIPATION Last administered on 12/28/18 22:33; Admin Dose 100 MG; Start 12/22/18 at 10:00 Isosorbide Dinitrate (Isordil) 30 mg DAILY PO Last administered on 12/30/18 07:50; Admin Dose 30 MG; Start 12/23/18 at 09:00 Metoprolol Tartrate (Lopressor) 50 mg BID PO Last administered on 12/30/18 07:50; Admin Dose 50 MG; Start 12/22/18 at 21:00 Multivitamins Therapeutic (Theragran) 1 tab DAILY PO Last administered on 12/30/18 09:18; Admin Dose 1 TAB; Start 12/23/18 at 09:00 Pantoprazole (Protonix Tab) 40 mg DAILY PO Last administered on 12/30/18 09:18; Admin Dose 40 MG; Start 12/23/18 at 09:00 Polyethylene Glycol (Miralax) 17 gm DAILY PO Last administered on 12/30/18 09:18; Admin Dose 17 GM; Start 12/23/18 at 09:00 Acetaminophen/ Hydrocodone Bitart ([place] (5/325)) 1 tab Q6H PRN PO PAIN LEVEL 7-10 Last administered on 12/30/18 10:10; Admin Dose 1 TAB; Start 12/22/18 at 10:30 Insulin Aspart (Novolog Insulin Pen) NOVOLOG *MILD* ALGORITHM WITH MEALS BEDTIME SC Last administered on 12/29/18 17:31; Admin Dose 3 UNIT; Start 12/22/18 at 18:00 Lidocaine (Lidoderm) 1 patch DAILY TD Last administered on 12/30/18 07:54; Admin Dose 1 PATCH; Start 12/24/18 at 09:00 Heparin Sodium (Porcine) (Heparin (5000 Units/1ml)) 5,000 unit BID SC Last administered on 12/30/18 09:27; Admin Dose 5,000 UNIT; Start 12/23/18 at 21:00 Nitroglycerin (Nitroglycerin 2% Oint) 1 inch Q6 PRN TD SBP>170 Last administered on 12/26/18 20:19; Admin Dose 1 INCH; Start 12/24/18 at 01:30 Hydralazine HCl (Apresoline) 25 mg Q6 PRN PO SBP >160 Last administered on 12/24/18 03:20; Admin Dose 25 MG; Start 12/24/18 at 01:30 Ondansetron HCl (Zofran Inj) 1 mg Q6H PRN IV NAUSEA AND/OR VOMITING Last administered on 12/29/18 12:55; Admin Dose 1 MG; Start 12/24/18 at 02:30 Ertapenem 0.5 gm/ Sodium Chloride 100 ml @ 200 mls/hr Q24H IVPB Last administered on 12/29/18 16:03; Admin Dose 200 MLS/HR; Start 12/24/18 at 17:00 Amlodipine Besylate (Norvasc) 10 mg DAILY PO Last administered on 12/30/18 07:50; Admin Dose 10 MG; Start 12/26/18 at 09:00 Linagliptin (Tradjenta) 5 mg DAILY PO Last administered on 12/30/18 07:50; Admin Dose 5 MG; Start 12/28/18 at 09:00 Diagnostic Test (Pha) (Accu-Chek) 1 ea AC MEALS AND BEDTIME XX Last administered on 12/30/18 07:51; Admin Dose 1 EA; Start 12/27/18 at 11:20 Insulin Glargine (Lantus) 20 units QAM SC Last administered on 12/30/18at 07:58; Admin Dose 20 UNITS; Start 12/29/18 at 09:00 Lubiprostone (Amitiza) 24 mcg BID PO Last administered on 12/30/18 09:18; Admin Dose 24 MCG; Start 12/29/18 at 09:00 Insulin Glargine (Lantus) 15 units QHS SC Last administered on 12/29/18at 21:00; Admin Dose 15 UNITS; Start 12/29/18 at 21:00 JASON GLOVER NP Dec 30, 2018 11:37
[2018-12-30] MEDS: ERTAPENEM SODIUM 0.5 GM in SOD CHLORIDE 0.9% 100 ML IVPB SCH (17:00)
--- NOTE | 2018-12-30 17:16 | CONS ---
Assessment/Plan Assessment/Plan Hospital Course (Demo Recall) Acute on chronic renal failure: baseline 1.8. Worsened from contrast nephropathy, now settled around 2.7 which may be the new baseline Right carotid 95% stenosis:She was evaluated by neurology and vascular surgery and thought not to be a candidate for intervention as she already had dense disease of the affected side without acute stroke. UTI CAD s/p PCI LAD 10/2017 HTN h/o CVA with left hemiparesis -continue ASA -lipitor 80mg -metoprolol 50mg BID -isordil 30mg -amlodipine 10mg -antibiotics Consultation Date/Type/Reason Admit Date/Time Dec 22, 2018 at 06:52 Initial Consult Date 12/25/18 Type of Consult Cardiology Requesting Provider: MAIDA DOZIER DO Date/Time of Note DATE: 12/30/18 TIME: 17:15 24 HR Interval Summary Free Text/Dictation No events. Plan for d/c to SNF today. Wants her escobar removed Exam/Review of Systems Vital Signs Vitals Vital Signs Date Temp Pulse Resp B/P (MAP) Pulse Ox O2 O2 Flow FiO2 Time Delivery Rate 12/30/18 65 16:00 12/30/18 98.2 19 150/67 95 15:23 (94) 12/27/18 Room Air 15:33 Intake and Output 12/29/18 12/29/18 12/30/18 1515:00 23:00 07:00 IntakeIntake Total 600 ml 300 ml OutputOutput Total 575 ml 650 ml BalanceBalance 25 ml -350 ml Exam Constitutional: alert, oriented Psych: no complaints, nl mood/affect Head: normocephalic, atraumatic Neck: No jvd Respiratory: clear to auscultation; No crackles/rales Cardiovascular: regular rate and rhythm; No edema Gastrointestinal: soft, non-tender; No distended Neurological: nl mental status, nl speech Labs Result Diagram: 12/30/18 0729 12/30/18 0729 Results 24hrs Laboratory Tests Test 12/29/18 17:19 12/29/18 21:46 12/30/18 07:29 12/30/18 07:48 Bedside Glucose 260 H 157 113 White Blood Count 9.2 # Red Blood Count 3.15 L Hemoglobin 10.0 L Hematocrit 29.6 L Mean Corpuscular 94.0 Volume Mean Corpuscular 31.7 Hemoglobin Mean Corpuscular 33.8 Hemoglobin Concent Red Cell 11.8 Distribution Width Platelet Count 318 Mean Platelet Volume 8.7 Immature 0.700 H Granulocytes % Neutrophils % 68.1 Lymphocytes % 21.0 Monocytes % 8.1 Eosinophils % 1.8 Basophils % 0.3 Nucleated Red Blood 0.0 Cells % Immature 0.060 H Granulocytes # Neutrophils # 6.3 Lymphocytes # 1.9 Monocytes # 0.8 Eosinophils # 0.2 Basophils # 0.0 Nucleated Red Blood 0.0 Cells # Sodium Level 140 Potassium Level 4.7 Chloride Level 107 Carbon Dioxide Level 25 Anion Gap 8 Blood Urea Nitrogen 40 H Creatinine 2.73 H Est Glomerular 17 L Filtrat Rate mL/min Glucose Level 98 # Calcium Level 9.7 Phosphorus Level 5.0 H Magnesium Level 1.9 Test 12/30/18 11:34 Bedside Glucose 161 Medications Medications Current Medications Acetaminophen (Tylenol Tab) 650 mg Q6H PRN PO MILD PAIN LEVEL 1-3 Last administered on 12/29/18 10:49; Admin Dose 650 MG; Start 12/22/18 at 10:00 Aspirin (Halfprin) 81 mg DAILY PO Last administered on 12/30/18 09:18; Admin Dose 81 MG; Start 12/23/18 at 09:00 Atorvastatin Calcium (Lipitor) 80 mg QHS PO Last administered on 12/28/18 20:11; Admin Dose 80 MG; Start 12/22/18 at 21:00 Cholecalciferol (Vitamin D) 1,000 unit DAILY PO Last administered on 12/30/18 09:18; Admin Dose 1,000 UNIT; Start 12/23/18 at 09:00 Docusate Sodium (Colace) 100 mg DAILY PRN PO CONSTIPATION Last administered on 12/28/18 22:33; Admin Dose 100 MG; Start 12/22/18 at 10:00 Isosorbide Dinitrate (Isordil) 30 mg DAILY PO Last administered on 12/30/18 07:50; Admin Dose 30 MG; Start 12/23/18 at 09:00 Metoprolol Tartrate (Lopressor) 50 mg BID PO Last administered on 12/30/18 07:50; Admin Dose 50 MG; Start 12/22/18 at 21:00 Multivitamins Therapeutic (Theragran) 1 tab DAILY PO Last administered on 12/30/18 09:18; Admin Dose 1 TAB; Start 12/23/18 at 09:00 Pantoprazole (Protonix Tab) 40 mg DAILY PO Last administered on 12/30/18 09: 18; Admin Dose 40 MG; Start 12/23/18 at 09:00 Polyethylene Glycol (Miralax) 17 gm DAILY PO Last administered on 12/30/18 09:18; Admin Dose 17 GM; Start 12/23/18 at 09:00 Acetaminophen/ Hydrocodone Bitart ([place] (5/325)) 1 tab Q6H PRN PO PAIN LEVEL 7-10 Last administered on 12/30/18 10:10; Admin Dose 1 TAB; Start 12/22/18 at 10:30 Insulin Aspart (Novolog Insulin Pen) NOVOLOG *MILD* ALGORITHM WITH MEALS BEDTIME SC Last administered on 12/30/18 11:38; Admin Dose 1 UNIT; Start 12/22/18 at 18:00 Lidocaine (Lidoderm) 1 patch DAILY TD Last administered on 12/30/18 07:54; Admin Dose 1 PATCH; Start 12/24/18 at 09:00 Heparin Sodium (Porcine) (Heparin (5000 Units/1ml)) 5,000 unit BID SC Last administered on 12/30/18 09:27; Admin Dose 5,000 UNIT; Start 12/23/18 at 21:00 Nitroglycerin (Nitroglycerin 2% Oint) 1 inch Q6 PRN TD SBP>170 Last administered on 12/26/18 20:19; Admin Dose 1 INCH; Start 12/24/18 at 01:30 Hydralazine HCl (Apresoline) 25 mg Q6 PRN PO SBP >160 Last administered on 12/24/18 03:20; Admin Dose 25 MG; Start 12/24/18 at 01:30 Ondansetron HCl (Zofran Inj) 1 mg Q6H PRN IV NAUSEA AND/OR VOMITING Last administered on 12/29/18 12:55; Admin Dose 1 MG; Start 12/24/18 at 02:30 Ertapenem 0.5 gm/ Sodium Chloride 100 ml @ 200 mls/hr Q24H IVPB Last administered on 12/29/18 16:03; Admin Dose 200 MLS/HR; Start 12/24/18 at 17:00 Amlodipine Besylate (Norvasc) 10 mg DAILY PO Last administered on 12/30/18 07:50; Admin Dose 10 MG; Start 12/26/18 at 09:00 Linagliptin (Tradjenta) 5 mg DAILY PO Last administered on 12/30/18 07:50; Admin Dose 5 MG; Start 12/28/18 at 09:00 Diagnostic Test (Pha) (Accu-Chek) 1 ea AC MEALS AND BEDTIME XX Last administered on 12/30/18 11:34; Admin Dose 1 EA; Start 12/27/18 at 11:20 Insulin Glargine (Lantus) 20 units QAM SC Last administered on 12/30/18 07:58; Admin Dose 20 UNITS; Start 12/29/18 at 09:00 Lubiprostone (Amitiza) 24 mcg BID PO Last administered on 12/30/18 09:18; Admin Dose 24 MCG; Start 12/29/18 at 09:00 Insulin Glargine (Lantus) 15 units QHS SC Last administered on 12/29/18at 21:00; Admin Dose 15 UNITS; Start 12/29/18 at 21:00 OCSAR OLSON Dec 30, 2018 17:16
== END 2018-12-30 20:20 | DRG 871 ==
LOC: E/R 06:21 → 5EC 06:52 → EDBEDREQ 07:23 → EDBEDREQSVC 08:36 → ICU 12-24 11:45 → TEL 12-25 04:48
PROVIDERS: ADMIT Internal Medicine; ATTEND Internal Medicine
DX: A41.9 Sepsis, unspecified organism (principal); N17.0 Acute kidney failure with tubular necrosis; G93.49 Other encephalopathy; I12.0 Hypertensive chronic kidney disease with stage 5 chronic kidney disease or end stage renal disease; G45.9 Transient cerebral ischemic attack, unspecified; I69.354 Hemiplegia and hemiparesis following cerebral infarction affecting left non-dominant side; N13.6 Pyonephrosis; E87.2 Acidosis; E87.1 Hypo-osmolality and hyponatremia; I65.21 Occlusion and stenosis of right carotid artery; E11.22 Type 2 diabetes mellitus with diabetic chronic kidney disease; E66.01 Morbid (severe) obesity due to excess calories; E86.0 Dehydration; D64.9 Anemia, unspecified; E87.5 Hyperkalemia; I25.10 Atherosclerotic heart disease of native coronary artery without angina pectoris; E78.5 Hyperlipidemia, unspecified; M81.0 Age-related osteoporosis without current pathological fracture; K21.9 Gastro-esophageal reflux disease without esophagitis; E11.40 Type 2 diabetes mellitus with diabetic neuropathy, unspecified; K59.00 Constipation, unspecified; Z66 Do not resuscitate; R47.81 Slurred speech; B96.20 Unspecified Escherichia coli [E. coli] as the cause of diseases classified elsewhere; Z16.12 Extended spectrum beta lactamase (ESBL) resistance; N18.3 Chronic kidney disease, stage 3 (moderate); N14.1 Nephropathy induced by other drugs, medicaments and biological substances; T50.8X5A Adverse effect of diagnostic agents, initial encounter; Z95.5 Presence of coronary angioplasty implant and graft; Z79.82 Long term (current) use of aspirin; Z79.4 Long term (current) use of insulin
CPT/HCPCS: 36415; 70450; 70496; 70498; 70551; 71045; 74018; 74176; 76775; 80048; 80061; 80307; 81001; 81003; 82043; 82550; 82553; 82962; 83036; 83605; 83735; 84100; 84155; 84300; 84484; 85025; 85610; 85730; 87081; 87086; 93005; 93306; J0692; J0696; J1335; J1644; J1815; J2405; J7030; Q9967